=== PATIENT | male | born 1945 | race Caucasian/White ===

== ENCOUNTER 2021-03-28 11:44 | Inpatient (IN) | payer MEDICARE ==
[~2021-03-28] VITALS: Ht 172.7 cm; Wt 71.3 kg
[2021-03-28] MEDS ORDERED: MIRT-7 PO (13:43)
[2021-03-28] MEDS ORDERED: CYAN10002 IM (13:43)
[2021-03-28] MEDS ORDERED: LOSA50TA86 PO (13:43)
[2021-03-28] MEDS ORDERED: SENN8.6T11 PO (13:43)
[2021-03-28] MEDS ORDERED: ATOR40TA59 PO (13:43)
[2021-03-28] MEDS ORDERED: MULT-154 PO (13:43)
[2021-03-28] MEDS ORDERED: DIVA125C2 PO (13:43)
[2021-03-28] MEDS ORDERED: INSU100I17 SQ ×2 (13:43)
[2021-03-28] MEDS ORDERED: ACET325T21 PO (13:43)
[2021-03-28] MEDS ORDERED: INSU100I13 SQ (13:43)
[2021-03-28] MEDS ORDERED: TICA90TA PO (13:43)
[2021-03-28] MEDS ORDERED: ONDA4TAB7 PO (13:43)
[2021-03-28] MEDS ORDERED: HYDR-2867 PO (13:43)
[2021-03-28] MEDS ORDERED: FLUT16SP21 NS (13:43)
[2021-03-28] MEDS ORDERED: MEGE400O4 PO (13:43)
[2021-03-28] MEDS ORDERED: POLY17PO5 PO (13:43)
[2021-03-28] MEDS ORDERED: CHOL10004 PO (13:43)
[2021-03-28] MEDS ORDERED: ASPI-630 PO (13:43)
[2021-03-28] MEDS ORDERED: CARV6.25 PO (13:43)
--- NOTE | 2021-03-28 14:30 | NUR ---
Admission Note with Justification for Admission to [facility] Patient admitted to [facility] for protective oversight for emergency stabilization of acute psychiatric crisis. Pt admitted from: SNF Mode of arrival: POV Accompanied By: transit survey worker from [facility] Precipitating behaviors that initiated intake and admission: Patient was reported to be tearful, not eating, depressed r/t deteriorating physical condition post-stroke, expressing he wants to , threatening staff with cane Description of failure of out patient attempts at stabilization in previous setting list behavior and medication trials: Medication changes and redirection not effective Behaviors and assessment findings upon admission: Patient depressed, cooperative, occasionally tearful during assessment. He has left sided weakness r/t CVA, unable to use left arm; he has minimal use of left leg. Left hand has 2+ nonpitting edema, both hands have acrocyanosis. Unable to obtain SpO2 in fingers or ear. Both shins are shiny and hairless, feet are dry, pale with scaly skin. Patient oriented to self, city, in hospital, and day; states he does not know the date. Patient denies SI, states he is just tired. Plan: Admit for protective oversight for adjustment and stabilization of medications, behaviors and mood. Intense treatment regimen including groups, medication adjustments, therapy, consistent regimen for ADL's, self care, and sleep hygiene. Daily monitoring by Inpatient staff, Psychiatry, and Medical Physician.
[2021-03-28] MEDS ORDERED: METHYL SALICYLATE/MENTHOL TOPICAL OINTMENT 57GM TUBE. TP PRN (15:00)
[2021-03-28] MEDS ORDERED: MAGNESIUM HYDROXIDE 2,400 MG/30 ML ORAL.SUSP. PO PRN (15:00)
[2021-03-28] MEDS ORDERED: MAG HYDROX/AL HYDROX/SIMETH 30 ML ORAL.SUSP PO PRN (15:00)
[2021-03-28] MEDS ORDERED: ACETAMINOPHEN 325 MG TABLET PO PRN (15:00)
[2021-03-28 15:12] VITALS: BP 148/85
[2021-03-28] MEDS ORDERED: hydrALAZINE 10 MG TABLET PO PRN (16:00)
[2021-03-28] MEDS ORDERED: INSULIN LISPRO 300 UNITS/3 ML VIAL. SQ PRN (16:15)
[2021-03-28] MEDS ORDERED: ONDANSETRON ODT 4 MG TAB.RAPDIS PO PRN (16:15)
[2021-03-28] MEDS: CARVEDILOL 6.25 MG TABLET PO SCH (17:03)
[2021-03-28 19:13] LABS: BASO # 0.1 x10^3/uL (0.0-0.2); BASO % 1 % (0-3); EOS # 0.5 x10^3/uL (0.0-0.7); EOS % 5 % (0-3); HEMATOCRIT 29.8 % (39.0-53.0); HEMOGLOBIN 10.1 g/dL (13.0-17.5); LYMPH # 1.5 x10^3/uL (1.0-4.8); LYMPH % 17 % (24-48); MEAN CORPUSCULAR HEMOGLOBIN 30 pg (25-35); MEAN CORPUSCULAR HGB CONC 34 g/dL (31-37); MEAN CORPUSCULAR VOLUME 90 fL (79-100); MONO # 0.9 x10^3/uL (0.0-1.1); MONO % 10 % (0-9); NEUT # 6.2 x10^3uL (1.8-7.7); NEUT % 68 % (31-73); PLATELET COUNT 284 x10^3/uL (140-400); RED BLOOD COUNT 3.33 x10^6/uL (4.30-5.70); RED CELL DISTRIBUTION WIDTH 14.4 % (11.5-14.5); WHITE BLOOD COUNT 9.2 x10^3/uL (4.0-11.0)
[2021-03-28 19:24] LABS: ALBUMIN 2.8 g/dL (3.4-5.0); ALBUMIN/GLOBULIN RATIO 0.7 (1.0-1.7); ALK PHOS 98 U/L (46-116); ALT (SGPT) 18 U/L (16-63); ANION GAP 12 (6-14); AST (SGOT) 14 U/L (15-37); BLOOD UREA NITROGEN 36 mg/dL (8-26); BUN/CREATININE RATIO 18 (6-20); CALCIUM 8.7 mg/dL (8.5-10.1); CARBON DIOXIDE 23 mmol/L (21-32); CHLORIDE 104 mmol/L (98-107); GFR 32.6; GLUCOSE 155 mg/dL (70-99); MAGNESIUM 1.9 mg/dL (1.8-2.4); POTASSIUM 3.3 mmol/L (3.5-5.1); SODIUM 139 mmol/L (136-145); TOTAL BILIRUBIN 0.3 mg/dL (0.2-1.0); TOTAL PROTEIN 6.7 g/dL (6.4-8.2)
[2021-03-28 19:25] LABS: VAL ACID 24 mcg/mL (50-100)
[2021-03-28] MEDS: TICAGRELOR 90 MG TABLET. PO SCH (20:08)
[2021-03-28] MEDS: ATORVASTATIN CALCIUM 20 MG TABLET PO SCH (20:18)
[2021-03-28] MEDS: MIRTAZAPINE 15 MG TABLET PO SCH (20:18)
[2021-03-28] MEDS: DIVALPROEX 125 MG CAP.SPRINK PO SCH (20:18)
[2021-03-28] MEDS: ACETAMINOPHEN 325 MG TABLET PO SCH (20:19)
--- NOTE | 2021-03-28 21:08 | EKG ---
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
[2021-03-28 21:30] LABS: CLARITY,URINE CLEAR; COLOR,URINE YELLOW
[2021-03-28 21:31] LABS: BACTERIA,URINE 0 /HPF (0-FEW); BILIRUBIN,URINE NEG (NEG); GLUCOSE,URINE NEG (NEG); NITRITE,URINE NEG (NEG); RBC,URINE 0 /HPF (0-2); SQUAMOUS EPITHELIAL CELL,UR OCC /LPF; UROBILINOGEN,URINE 0.2 mg/dL (0.2 mg/dL); WBC,URINE 0 /HPF (0-4)
--- NOTE | 2021-03-28 21:52 | PDOC ---
Exam Note: Jareth Note: Please also refer to the separate dictated note~for this date of service dictated separately.~Patient seen individually. Discussed the patient with Nursing staff reviewed the chart.~Reviewed interim history and current functioning. Reviewed vital signs,~Labs/ Radiology~and current medications noted below. Continue current treatment with the changes noted in the dictated addendum note Assessment: Vital Signs/I&O: Vital Signs Date Time Temp Pulse Resp B/P (MAP) Pulse Ox O2 Delivery O2 Flow Rate FiO2 03/28/21 17:03 98 148/85 03/28/21 15:12 97.4 18 99 Labs: Laboratory Tests Test 03/28/21 16:48 03/28/21 18:58 03/28/21 19:41 03/28/21 21:00 Glucose (Fingerstick) 86 mg/dL (70-99) 130 mg/dL (70-99) H White Blood Count 9.2 x10^3/uL (4.0-11.0) Red Blood Count 3.33 x10^6/uL (4.30-5.70) L Hemoglobin 10.1 g/dL (13.0-17.5) L Hematocrit 29.8 % (39.0-53.0) L Mean Corpuscular Volume 90 fL (79-100) Mean Corpuscular Hemoglobin 30 pg (25-35) Mean Corpuscular Hemoglobin Concent 34 g/dL (31-37) Red Cell Distribution Width 14.4 % (11.5-14.5) Platelet Count 284 x10^3/uL (140-400) Neutrophils (%) (Auto) 68 % (31-73) Lymphocytes (%) (Auto) 17 % (24-48) L Monocytes (%) (Auto) 10 % (0-9) H Eosinophils (%) (Auto) 5 % (0-3) H Basophils (%) (Auto) 1 % (0-3) Neutrophils # (Auto) 6.2 x10^3uL (1.8-7.7) Lymphocytes # (Auto) 1.5 x10^3/uL (1.0-4.8) Monocytes # (Auto) 0.9 x10^3/uL (0.0-1.1) Eosinophils # (Auto) 0.5 x10^3/uL (0.0-0.7) Basophils # (Auto) 0.1 x10^3/uL (0.0-0.2) D-Dimer (Tianna) 3.76 mg/L (0.00-0.50) H Sodium Level 139 mmol/L (136-145) Potassium Level 3.3 mmol/L (3.5-5.1) L Chloride Level 104 mmol/L (98-107) Carbon Dioxide Level 23 mmol/L (21-32) Anion Gap 12 (6-14) Blood Urea Nitrogen 36 mg/dL (8-26) H Creatinine 2.0 mg/dL (0.7-1.3) H Estimated GFR (Cockcroft-Gault) 32.6 BUN/Creatinine Ratio 18 (6-20) Glucose Level 155 mg/dL (70-99) H Calcium Level 8.7 mg/dL (8.5-10.1) Magnesium Level 1.9 mg/dL (1.8-2.4) Total Bilirubin 0.3 mg/dL (0.2-1.0) Aspartate Amino Transferase (AST) 14 U/L (15-37) L Alanine Aminotransferase (ALT) 18 U/L (16-63) Alkaline Phosphatase 98 U/L (46-116) Total Protein 6.7 g/dL (6.4-8.2) Albumin 2.8 g/dL (3.4-5.0) L Albumin/Globulin Ratio 0.7 (1.0-1.7) L Valproic Acid Level 24 mcg/mL (50-100) L Valproic Acid Last Dose Date 03/28/21 Valproic Acid Last Dose Time 0800 Urine Collection Type Clean catch Urine Color Yellow Urine Clarity Clear Urine pH 5.0 Urine Specific [place] 1.020 Urine Protein >100 mg/dl (NEG-TRACE) Urine Glucose (UA) Neg mg/dL (NEG) Urine Ketones (Stick) Neg mg/dL (NEG) Urine Blood Neg (NEG) Urine Nitrite Neg (NEG) Urine Bilirubin Neg (NEG) Urine Urobilinogen Dipstick 0.2 mg/dL (0.2 mg/dL) Urine Leukocyte Esterase Neg (NEG) Urine RBC 0 /HPF (0-2) Urine WBC 0 /HPF (0-4) Urine Squamous Epithelial Cells Occ /LPF Urine Bacteria 0 /HPF (0-FEW) Current Medications: Meds: Current Medications Medications (Trade) Dose Ordered Sig/Komal Route PRN Reason Start Time Stop Time Status Last Admin Dose Admin Acetaminophen (Tylenol) 650 mg TID PO 03/28/21 21:00 03/28/21 20:19 Carvedilol (Coreg) 6.25 mg BIDWMEALS PO 03/28/21 17:00 03/28/21 17:03 Divalproex Sodium (Depakote Sprinkles) 250 mg BID PO 03/28/21 21:00 03/28/21 20:18 Mirtazapine (Remeron) 15 mg QHS PO 03/28/21 21:00 03/28/21 20:18 Ticagrelor (Brilinta) 90 mg BID PO 03/28/21 21:00 03/28/21 20:08 Atorvastatin Calcium (Lipitor) 40 mg QHS PO 03/28/21 21:00 03/28/21 20:18 I have reviewed the current psychotropics carefully including drug interactions. Risk benefit ratio favors no change other than as noted in my dictated progress note. FREDDY SHEARER MD Mar 28, 2021 21:52
--- NOTE | 2021-03-28 23:15 | NUR ---
Patient is located in his room on assumption of care, awake in bed. He is flat, depressed, withdrawn. Answers assessment questions with one-word answers. Oriented to self, , day of the week, and that he is in a hospital, but can't state which one. He transfers with some assistance, due to left sided weakness. He was compliant with assessments and took his medications whole, one at a time, on a spoon. This nurse asked him if he would prefer to take them crushed, and he agreed that he would. His preference is chocolate pudding. Cooperative with HS cares. Patient denies any SI thoughts at this time. He denies any pain or discomfort. Appears to be sleeping comfortably at present time. Will continue to monitor.
[2021-03-29 06:21] VITALS: BP 156/78
[2021-03-29 06:23] VITALS: BP 156/78
[2021-03-29] MEDS ORDERED: INSULIN LISPRO 300 UNITS/3 ML VIAL. SQ SCH (07:30)
[2021-03-29] MEDS: INSULIN GLARGINE SYRINGE. SQ SCH (08:00)
[2021-03-29] MEDS: CHOLECALCIFEROL (VITAMIN D3) 1,000 UNIT TABLET PO SCH (08:59)
[2021-03-29] MEDS: MEGESTROL 400 MG/10 ML ORAL.SUSP. PO SCH ×2 (08:59→12:00)
[2021-03-29] MEDS: ACETAMINOPHEN 325 MG TABLET PO SCH ×2 (08:59→14:00)
[2021-03-29] MEDS: ASPIRIN CHEWABLE 81 MG TABLET. PO SCH (09:00)
[2021-03-29] MEDS: CARVEDILOL 6.25 MG TABLET PO SCH ×2 (09:00→17:00)
[2021-03-29] MEDS: MULTIVITAMIN with MINERAL TABLET. PO SCH (09:00)
[2021-03-29] MEDS: TICAGRELOR 90 MG TABLET. PO SCH ×2 (09:00→19:57)
[2021-03-29] MEDS: DIVALPROEX 125 MG CAP.SPRINK PO SCH ×2 (09:00→19:59)
[2021-03-29] MEDS ORDERED: FLUTICASONE 50MCG/NASAL SPRAY 16GM BOTTLE. NS SCH (09:00)
[2021-03-29] MEDS: LOSARTAN 50 MG TABLET. PO SCH (09:00)
--- NOTE | 2021-03-29 11:45 | NUR ---
WINDOW GLASS CUTTER OFF reports patient states he feels like he is going to pass out. Patient denies nausea or pain, states he feels light headed. BP=89/61, HR=96, SpO2=98% on room air. Instructed patient he needs to drink fluids, patient refusing to drink thickened liquids. Informed patient he is on thickened liquids until speech can evaluate him to prevent aspiration pneumonia, patient continues to refuse thickened liquid. Will continue to monitor and report to MD during rounds
[2021-03-29] MEDS: INSULIN LISPRO 300 UNITS/3 ML VIAL. SQ SCH ×2 (12:31→17:00)
--- NOTE | 2021-03-29 12:32 | NUR ---
Patient refused megestrol. He did not eat more than 25% of his meal, insulin was held. Will continue to monitor.
[2021-03-29 13:09] LABS: THYROID STIM HORMONE (TSH) 0.634 uIU/mL (0.358-3.740)
[2021-03-29] MEDS ORDERED: FLUTICASONE 50MCG/NASAL SPRAY 16GM BOTTLE. NS PRN (16:00)
[2021-03-29] MEDS ORDERED: ACETAMINOPHEN 325 MG TABLET PO PRN (16:00)
[2021-03-29 16:11] VITALS: BP 137/80
--- NOTE | 2021-03-29 17:56 | NUR ---
Per speech therapy, patient should be on pureed diet with honey thick liquid. Discussed with Lorna Vasquez, patient's daughter and POA. Due to patient's behavior's and preferences, she stated that patient is to have a mechanical soft diet and thin liquids, this is the diet he was on at his facility. She stated that the family is aware of the dangers of aspiration. She stated that patient has lost 14lbs in the last month and 25 pounds since his CVA on 03 January 2021. Patient had a swallow study about three weeks ago at [facility], consent obtained to request medical records.
[2021-03-29] MEDS: MIRTAZAPINE 15 MG TABLET PO SCH (19:58)
[2021-03-29] MEDS: ATORVASTATIN CALCIUM 20 MG TABLET PO SCH (19:58)
--- NOTE | 2021-03-29 23:45 | NUR ---
Patient is located in his room on assumption of care, awake in bed. He is withdrawn, depressed, irritable. When this nurse entered his room for assessment, he stated "What the hell do you want? I've been to 4 places since my stroke, and this is place is a shit-hole just like all the others." He was compliant with assessments and medications crushed in chocolate pudding. Cooperative with HS cares. Patient denies any SI thoughts at this time. He denies any pain or discomfort. Appears to be sleeping comfortably at present time. Will continue to monitor.
--- NOTE | 2021-03-30 00:11 | CONS ---
DATE OF CONSULTATION: 03/29/2021 REASON FOR CONSULTATION: Medical management. HISTORY OF PRESENT ILLNESS: The patient is a 76-year-old male patient, a resident at the [facility] who was [facility] on account of being tearful, anorexic and depressed secondary to deteriorating physical condition post-stroke. He was expressing his desire to , threatening staff with cane, all this in a background of major depressive disorder. PAST MEDICAL HISTORY: Significant for right middle cerebral artery territory infarct with left-sided hemiplegia. He also has oropharyngeal dysphagia, dysarthria, neurogenic bowel, left-sided neglect syndrome. He has type 2 diabetes mellitus, chronic kidney disease, neurogenic bladder, anemia, hypertension, aortocoronary bypass graft, has muscle weakness, attention and concentration deficit with adjustment disorder with mixed anxiety and depressed mood, osteoarthritis. The patient also requires assistance for all activities of daily living. PAST SURGICAL HISTORY: Significant for coronary artery bypass graft surgery. ALLERGIES: He has no known drug allergies. MEDICATIONS: He is currently on the following medication: He is on Brilinta 90 mg twice a day, atorvastatin 40 mg at bedtime, hydralazine 10 mg every 8 hours, carvedilol 6.25 mg twice a day with meals, losartan potassium 50 mg daily, aspirin 81 mg once a day and acetaminophen 650 mg t.i.d., divalproex sodium 250 mg twice a day, mirtazapine 15 mg at bedtime, fluticasone propionate for Flonase 2 sprays to each nostril once a day, polyethylene glycol 17 grams every 12 hours as needed, senna 1 tablet twice a day, ondansetron 4 mg every 12 hours as needed. He is on NovoLog FlexPen 10 units with supper, NovoLog 13 units before breakfast and lunch and 35 units of Lantus insulin before breakfast. He is on megestrol acetate 400 mg in 10 mL oral suspension, 400 mg p.o. b.i.d. with breakfast and lunch. He is on vitamin B complex 1000 mcg intramuscular once a month, cholecalciferol (vitamin D) 50 mcg once a day. He is also on multivitamin 1 tablet once a day. REVIEW OF SYSTEMS: As per history of present illness. FAMILY HISTORY: Noncontributory. SOCIAL HISTORY: He is , has 2 children. He quit smoking about 30 years ago. Drinks alcohol occasionally. Does not use any drugs. 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 PHYSICAL EXAMINATION: GENERAL: When I saw him this afternoon, he was resting slightly propped up in bed, in no apparent respiratory distress. He was somewhat pale, but no jaundice, cyanosis or thyromegaly. No jugular venous distention. No lower limb edema. VITAL SIGNS: His heart rate was 72, blood pressure is 156/78, temperature 97.8, respiratory rate was 16 and oxygen saturation was 97% on room air. HEAD, EYES, EARS, NOSE, AND THROAT: Normocephalic, atraumatic. NECK: Supple. HEART: Showed normal first and second heart sounds, no gallop, rub or murmur. CHEST: Clear to auscultation, no crepitation or rhonchi. ABDOMEN: Scaphoid, soft, nontender. NEUROLOGIC: He is awake, alert, responding appropriately. All his cranial nerves intact. He has right middle cerebral artery territory infarct with left-sided hemiplegia. LABORATORY DATA: His D-dimer was high at 3.76. His white cell count was 9200, hemoglobin 10, hematocrit 30, MCV 90 and platelet count 284,000 with normal manual differential. His chemistry showed a serum sodium of 139, potassium 3.3, chloride 104, bicarbonate 23, anion gap of 12, BUN 36, creatinine 2, estimated GFR was 32 mL per minute. His glucose 155, calcium was 8.7. Total protein was 1.9. His total bilirubin, AST, ALT, alkaline phosphatase were normal. Total protein 6.7, albumin 2.8. His iron is 36, iron binding capacity was 226 and total iron saturation was 16%. His serum triglycerides was 126. Total cholesterol was 81, LDL was 33, VLDL was 25, HDL cholesterol was 23 and the ratio was 3 and TSH was 0.634. His urinalysis showed the urine was clear yellow with a pH of 5, specific gravity 1.020. His toxic screen showed the valproic acid only 24 and his coronavirus by PCR was negative. ASSESSMENT AND PLAN: In summary, this is a 76-year-old male patient, resident at [facility] who was admitted on account of being tearful, not eating, depressed due to deteriorating physical condition post stroke, expressing he wants to and threatening staff with cane, all this in a background of major depressive disorder. Medically, he all in all seemed to be stable. All his vital signs were within acceptable range. His lab work also showed that he has chronic normochromic normocytic anemia, has also chronic kidney disease, mild hypokalemia. However, the patient all in all seems to be stable. I will review all the lab work that is still pending at the time of this dictation and decide on further management accordingly. Thank you, Dr. Vora, for allowing me to participate in the care of this patient. ANDREW/JHOANA DR: Magaly TID: [id number]
[2021-03-30 05:38] LABS: THYROXINE 7.6 ug/dL (4.5-12.0)
[2021-03-30 06:22] VITALS: BP 168/80
[2021-03-30] MEDS: INSULIN LISPRO 300 UNITS/3 ML VIAL. SQ SCH ×3 (08:00→17:38)
[2021-03-30] MEDS: MEGESTROL 400 MG/10 ML ORAL.SUSP. PO SCH ×2 (08:00→12:00)
[2021-03-30] MEDS: INSULIN GLARGINE SYRINGE. SQ SCH (08:00)
[2021-03-30] MEDS: DIVALPROEX 125 MG CAP.SPRINK PO SCH ×2 (08:58→20:35)
[2021-03-30] MEDS: LOSARTAN 50 MG TABLET. PO SCH (08:58)
[2021-03-30] MEDS: CARVEDILOL 6.25 MG TABLET PO SCH ×2 (08:58→17:32)
[2021-03-30] MEDS: ASPIRIN CHEWABLE 81 MG TABLET. PO SCH (08:58)
[2021-03-30] MEDS: TICAGRELOR 90 MG TABLET. PO SCH ×2 (08:58→20:35)
[2021-03-30] MEDS ORDERED: buPROPion XL 150 MG TAB.ER.24H PO SCH (09:00)
[2021-03-30] MEDS: CHOLECALCIFEROL (VITAMIN D3) 1,000 UNIT TABLET PO SCH (09:00)
[2021-03-30] MEDS: MULTIVITAMIN with MINERAL TABLET. PO SCH (09:00)
--- NOTE | 2021-03-30 10:31 | PDOC ---
Exam Note: Jaerth Note: Late entry for 03/29/21. Please also refer to the separate dictated note~for this date of service dictated separately.~Patient seen individually. Discussed the patient with Nursing staff reviewed the chart.~Reviewed interim history and current functioning. Reviewed vital signs,~Labs/ Radiology~and current medicat ions noted below. Continue current treatment with the changes noted in the dictated addendum note Assessment: Vital Signs/I&O: Vital Signs Date Time Temp Pulse Resp B/P (MAP) Pulse Ox O2 Delivery O2 Flow Rate FiO2 03/30/21 08:58 82 168/80 03/30/21 06:22 97.5 16 95 Room Air I & O 03/29/21 03/29/21 03/30/21 15:00 23:00 07:00 Intake Total 480 ml 620 ml Balance 480 ml 620 ml Labs: Laboratory Tests Test 03/29/21 11:43 03/29/21 16:18 03/29/21 19:10 03/30/21 07:28 Glucose (Fingerstick) 185 mg/dL (70-99) H 197 mg/dL (70-99) H 245 mg/dL (70-99) H 184 mg/dL (70-99) H Current Medications: Meds: Laboratory Tests Test 03/29/21 11:43 03/29/21 16:18 03/29/21 19:10 03/30/21 07:28 Glucose (Fingerstick) 185 mg/dL 197 mg/dL 245 mg/dL 184 mg/dL Current Medications Medications (Trade) Dose Ordered Sig/Komal Route PRN Reason Start Time Stop Time Status Last Admin Dose Admin Acetaminophen (Tylenol) 650 mg PRN Q6HRS PRN PO MILD PAIN / TEMP > 100.3'F 03/28/21 15:00 03/29/21 16:01 DC Multi-Ingredient Ointment (Analgesic [place]) 1 peggy PRN QID PRN TP MUSCLE PAIN 03/28/21 15:00 Al Hydroxide/Mg Hydroxide (Mylanta Plus Xs) 15 ml PRN AFTMEALHC PRN PO DYSPEPSIA 03/28/21 15:00 Magnesium Hydroxide (Milk Of Magnesia) 2,400 mg PRN QHS PRN PO CONSTIPATION 03/28/21 15:00 Acetaminophen (Tylenol) 650 mg TID PO 03/28/21 21:00 03/29/21 16:01 DC 03/29/21 08:59 Aspirin (Aspirin Chewable) 81 mg DAILY PO 03/29/21 09:00 03/30/21 08:58 Carvedilol (Coreg) 6.25 mg BIDWMEALS PO 03/28/21 17:00 03/30/21 08:58 Vitamin D (Vitamin D3) 2,000 unit DAILY PO 03/29/21 09:00 03/29/21 08:59 Cyanocobalamin (Vitamin B-12) 1,000 mcg QMONTH IM 04/09/21 09:00 Divalproex Sodium (Depakote Sprinkles) 250 mg BID PO 03/28/21 21:00 03/30/21 08:58 Fluticasone Propionate (Flonase) 2 spray DAILY NS 03/29/21 09:00 03/29/21 16:01 DC 03/29/21 08:58 Hydralazine HCl (Apresoline) 10 mg PRN Q8HRS PRN PO HYPERTENSION 03/28/21 16:00 Losartan Potassium (Cozaar) 50 mg DAILY PO 03/29/21 09:00 03/30/21 08:58 Megestrol Acetate (Megace Oral Susp) 400 mg BIDWBKFT/URIEL PO 03/29/21 08:00 03/29/21 08:59 Mirtazapine (Remeron) 15 mg QHS PO 03/28/21 21:00 03/29/21 19:58 Polyethylene Glycol (miraLAX) 17 gm PRN Q12HR PRN PO CONSTIPATION 03/28/21 16:00 Sennosides (Senna) 8.6 mg PRN Q12HR PRN PO CONSTIPATION 03/28/21 16:00 Ticagrelor (Brilinta) 90 mg BID PO 03/28/21 21:00 03/30/21 08:58 Atorvastatin Calcium (Lipitor) 40 mg QHS PO 03/28/21 21:00 03/29/21 19:58 Insulin Human Lispro (HumaLOG) 10 units DAILYWSUP PRN SQ IF PT EATS >/= 25% OF NGOZI MEAL 03/28/21 16:15 03/29/21 11:54 DC Insulin Human Lispro (HumaLOG) 13 units BIDACBL SQ 03/29/21 07:30 03/29/21 11:56 DC Insulin Glargine (Lantus Syringe) 35 unit DAILYWBKFT SQ 03/29/21 08:00 Multivitamins/ Calcium (Thera-M Plus) 1 tab DAILY PO 03/29/21 09:00 03/29/21 09:00 Ondansetron HCl (Zofran Odt) 4 mg PRN Q12HR PRN PO NAUSEA/VOMITING 03/28/21 16:15 Insulin Human Lispro (HumaLOG) 10 units DAILYWSUP SQ 03/29/21 17:00 Insulin Human Lispro (HumaLOG) 13 units BIDWBKFT/URIEL SQ 03/29/21 12:00 Acetaminophen (Tylenol) 650 mg PRN TID PRN PO MILD PAIN / TEMP > 100.3'F 03/29/21 16:00 Fluticasone Propionate (Flonase) 2 spray PRN DAILY PRN NS ALLERGIES 03/29/21 16:00 Bupropion HCl (Wellbutrin Xl) 150 mg DAILY PO 03/30/21 09:00 04/01/21 11:00 Bupropion HCl (Wellbutrin Xl) 300 mg DAILY PO 04/02/21 09:00 I have reviewed the current psychotropics carefully including drug interactions. Risk benefit ratio favors no change other than as noted in my dictated progress note. FREDDY SHEARER MD Mar 30, 2021 10:31
--- NOTE | 2021-03-30 13:48 | NUR ---
Nursing note: Patient in bed room for morning medication and assessment. Partial compliance with taking medications floated in pudding. He is A/O to self, place and situation. Patient is rude, demanding, confused, and isolative. He refused breakfast, insulin held. He ate less than 25% of lunch, insulin held. Patient denies having any pain/discomfort at this time. He propels self through unit and bedroom in w/c. He is currently sitting in his w/c in his room. Will continue to monitor. Addendum: 03/30/21 at 1813 by CRAIG MONTES RN RN Patient is not on a sliding scale for insulin, this nurse gave 4 units after he ate 75% of his dinner. He is added to the Dr list for consult.
[2021-03-30 16:18] VITALS: BP 117/62
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
[2021-03-30] MEDS: MIRTAZAPINE 15 MG TABLET PO SCH (20:35)
[2021-03-30] MEDS: ATORVASTATIN CALCIUM 20 MG TABLET PO SCH (20:35)
--- NOTE | 2021-03-30 22:00 | NUR ---
Patient laying in bed when nurse entered room with HS medications. He stated that he must have them crushed in pudding and then followed by water. Patient compliant with meds. Patient stated that he "had no blankets". Patient was actually laying on top of the covers. Provided patient with blankets as he stated he did not want to try to get under the covers as his Left side is weak. Patient stated that he is angry that he cannot do the things he could do before his stroke, stated he had a stroke December 2020. Patient asked if he could have his cell phone back and then stated that he is claustrophobic and asked how much longer he had to stay here. It was reported that patient did not eat breakfast or lunch today. Dr Vora changed patients wellbutrin XL 150mg to Wellbutrin 75mg at BID @ 0900/1200, as that can be crushed.
[2021-03-31 01:08] LABS: HEMOGLOBIN A1C 7.5 % (4.8-5.6)
[2021-03-31 06:00] VITALS: BP 134/88
[2021-03-31] MEDS: INSULIN GLARGINE SYRINGE. SQ SCH (08:00)
[2021-03-31] MEDS: DIVALPROEX 125 MG CAP.SPRINK PO SCH ×2 (08:01→20:28)
[2021-03-31] MEDS: ASPIRIN CHEWABLE 81 MG TABLET. PO SCH (08:02)
[2021-03-31] MEDS: TICAGRELOR 90 MG TABLET. PO SCH ×2 (08:02→20:28)
[2021-03-31] MEDS: LOSARTAN 50 MG TABLET. PO SCH (08:02)
[2021-03-31] MEDS: CARVEDILOL 6.25 MG TABLET PO SCH ×2 (08:02→17:24)
[2021-03-31] MEDS: MULTIVITAMIN with MINERAL TABLET. PO SCH (08:02)
[2021-03-31] MEDS: CHOLECALCIFEROL (VITAMIN D3) 1,000 UNIT TABLET PO SCH (08:02)
[2021-03-31] MEDS: MEGESTROL 400 MG/10 ML ORAL.SUSP. PO SCH ×2 (08:03→12:20)
[2021-03-31] MEDS: buPROPion 75 MG TABLET PO SCH ×2 (08:03→12:20)
[2021-03-31] MEDS: INSULIN LISPRO 300 UNITS/3 ML VIAL. SQ SCH ×3 (08:55→17:43)
--- NOTE | 2021-03-31 08:55 | PDOC ---
Exam Note: Jareth Note: This note is a late entry for 03/29/2021 covers elements not covered in my initial note. Subjective: The patient was seen individually in the evening of 03/29/2021 with Javier JIANG, discussed and reviewed the chart. The patient slept 9 hours previous night. He has been extremely withdrawn, refused his meds during the day today and was quite irritable. He walked 40 feet with physical therapy staff in a wheelchair propelling himself. Speech evaluation recommended. Diet pureed with honey thickened but the DPOA has consented to thin liquids and pureed diet as the patient requests and he is accepting of the risks per nursing staff. We will defer to Dr. Shea. I met with him in his room. We reviewed his history at length. 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 He takes his medications crushed. He is quite depressed, anxious, irritable, and dismissive as I met with him. Review of Systems: No CV, , pulmonary, eye, ENT system symptoms on review. Impaired ambulation. Reliability varies. Mental Status Exam: The patient is oriented to himself and situation. Speech has some latency, coherent. Often response is monosyllabic. Abstraction fair. Computation impaired. Language function intact. Mood and affect depressed but no active suicidal ideation, somewhat distractible. Laboratory Data: Reviewed. Impression: Major depressive disorder, severe with psychotic features. Anxiety disorder unspecified. Rest unchanged from before. Plan: We will start Wellbutrin XL 150 mg a day for 3 days and 300 mg a day t hereafter. In a day or so we will adjust the Depakote upward to reach therapeutic level since the current level is 24 subtherapeutic on 250 mg b.i.d. Maintain Megace, Remeron. Rest unchanged for now. Assessment: Vital Signs/I&O: Vital Signs Date Time Temp Pulse Resp B/P (MAP) Pulse Ox O2 Delivery O2 Flow Rate FiO2 03/31/21 08:02 80 134/88 03/31/21 06:00 97.9 17 92 03/30/21 06:22 Room Air I & O 03/30/21 03/30/21 03/31/21 15:00 23:00 07:00 Intake Total 300 ml 240 ml Balance 300 ml 240 ml Labs: Laboratory Tests Test 03/30/21 11:47 03/30/21 17:10 03/30/21 19:31 03/31/21 07:50 Glucose (Fingerstick) 169 mg/dL (70-99) H 217 mg/dL (70-99) H 224 mg/dL (70-99) H 190 mg/dL (70-99) H Current Medications: Meds: Laboratory Tests Test 03/30/21 11:47 03/30/21 17:10 03/30/21 19:31 03/31/21 07:50 Glucose (Fingerstick) 169 mg/dL 217 mg/dL 224 mg/dL 190 mg/dL Current Medications Medications (Trade) Dose Ordered Sig/Komal Route PRN Reason Start Time Stop Time Status Last Admin Dose Admin Acetaminophen (Tylenol) 650 mg PRN Q6HRS PRN PO MILD PAIN / TEMP > 100.3'F 03/28/21 15:00 03/29/21 16:01 DC Multi-Ingredient Ointment (Analgesic [place]) 1 peggy PRN QID PRN TP MUSCLE PAIN 03/28/21 15:00 Al Hydroxide/Mg Hydroxide (Mylanta Plus Xs) 15 ml PRN AFTMEALHC PRN PO DYSPEPSIA 03/28/21 15:00 Magnesium Hydroxide (Milk Of Magnesia) 2,400 mg PRN QHS PRN PO CONSTIPATION 03/28/21 15:00 Acetaminophen (Tylenol) 650 mg TID PO 03/28/21 21:00 03/29/21 16:01 DC 03/29/21 08:59 Aspirin (Aspirin Chewable) 81 mg DAILY PO 03/29/21 09:00 03/31/21 08:02 Carvedilol (Coreg) 6.25 mg BIDWMEALS PO 03/28/21 17:00 03/31/21 08:02 Vitamin D (Vitamin D3) 2,000 unit DAILY PO 03/29/21 09:00 03/31/21 08:02 Cyanocobalamin (Vitamin B-12) 1,000 mcg QMONTH IM 04/09/21 09:00 Divalproex Sodium (Depakote Sprinkles) 250 mg BID PO 03/28/21 21:00 03/31/21 08:01 Fluticasone Propionate (Flonase) 2 spray DAILY NS 03/29/21 09:00 03/29/21 16:01 DC 03/29/21 08:58 Hydralazine HCl (Apresoline) 10 mg PRN Q8HRS PRN PO HYPERTENSION 03/28/21 16:00 Losartan Potassium (Cozaar) 50 mg DAILY PO 03/29/21 09:00 03/31/21 08:02 Megestrol Acetate (Megace Oral Susp) 400 mg BIDWBKFT/URIEL PO 03/29/21 08:00 03/31/21 08:03 Mirtazapine (Remeron) 15 mg QHS PO 03/28/21 21:00 03/30/21 20:35 Polyethylene Glycol (miraLAX) 17 gm PRN Q12HR PRN PO CONSTIPATION 03/28/21 16:00 Sennosides (Senna) 8.6 mg PRN Q12HR PRN PO CONSTIPATION 03/28/21 16:00 Ticagrelor (Brilinta) 90 mg BID PO 03/28/21 21:00 03/31/21 08:02 Atorvastatin Calcium (Lipitor) 40 mg QHS PO 03/28/21 21:00 03/30/21 20:35 Insulin Human Lispro (HumaLOG) 10 units DAILYWSUP PRN SQ IF PT EATS >/= 25% OF NGOZI MEAL 03/28/21 16:15 03/29/21 11:54 DC Insulin Human Lispro (HumaLOG) 13 units BIDACBL SQ 03/29/21 07:30 03/29/21 11:56 DC Insulin Glargine (Lantus Syringe) 35 unit DAILYWBKFT SQ 03/29/21 08:00 Multivitamins/ Calcium (Thera-M Plus) 1 tab DAILY PO 03/29/21 09:00 03/31/21 08:02 Ondansetron HCl (Zofran Odt) 4 mg PRN Q12HR PRN PO NAUSEA/VOMITING 03/28/21 16:15 Insulin Human Lispro (HumaLOG) 10 units DAILYWSUP SQ 03/29/21 17:00 03/30/21 17:38 Insulin Human Lispro (HumaLOG) 13 units BIDWBKFT/URIEL SQ 03/29/21 12:00 Acetaminophen (Tylenol) 650 mg PRN TID PRN PO MILD PAIN / TEMP > 100.3'F 03/29/21 16:00 Fluticasone Propionate (Flonase) 2 spray PRN DAILY PRN NS ALLERGIES 03/29/21 16:00 Bupropion HCl (Wellbutrin Xl) 150 mg DAILY PO 03/30/21 09:00 03/30/21 20:20 DC Bupropion HCl (Wellbutrin Xl) 300 mg DAILY PO 04/02/21 09:00 03/30/21 20:20 DC Bupropion HCl (Wellbutrin) 75 mg 0900,1200 PO 03/31/21 09:00 03/31/21 08:03 Current Medications Medications (Trade) Dose Ordered Sig/Koaml Route PRN Reason Start Time Stop Time Status Last Admin Dose Admin Bupropion HCl (Wellbutrin) 75 mg 0900,1200 PO 03/31/21 09:00 03/31/21 08:03 I have reviewed the current psychotropics carefully including drug interactions. Risk benefit ratio favors no change other than as noted in my dictated progress note. Diagnosis: Problems: (1) Major depressive disorder, recurrent, severe with psychotic features (2) Mild cognitive impairment (3) Anxiety disorder, unspecified FREDDY SHEARER MD Mar 31, 2021 08:55
--- NOTE | 2021-03-31 09:14 | PDOC ---
Exam Note: Jareth Note: Late entry for 03/30/2021. Please also refer to the separate dictated note~for this date of service dictated separately. Discussed the patient with Nursing staff reviewed the chart.~Reviewed interim history and current functioning. Reviewed vital signs,~Labs/ Radiology~and current medications noted below. Continue current treatment with the changes noted in the dictated addendum note Assessment: Vital Signs/I&O: Vital Signs Date Time Temp Pulse Resp B/P (MAP) Pulse Ox O2 Delivery O2 Flow Rate FiO2 03/31/21 08:02 80 134/88 03/31/21 06:00 97.9 17 92 03/30/21 06:22 Room Air I & O 03/30/21 03/30/21 03/31/21 14:59 22:59 06:59 Intake Total 300 ml 240 ml Balance 300 ml 240 ml Labs: Laboratory Tests Test 03/30/21 11:47 03/30/21 17:10 03/30/21 19:31 03/31/21 07:50 Glucose (Fingerstick) 169 mg/dL (70-99) H 217 mg/dL (70-99) H 224 mg/dL (70-99) H 190 mg/dL (70-99) H Current Medications: Meds: Laboratory Tests Test 03/30/21 11:47 03/30/21 17:10 03/30/21 19:31 03/31/21 07:50 Glucose (Fingerstick) 169 mg/dL 217 mg/dL 224 mg/dL 190 mg/dL Current Medications Medications (Trade) Dose Ordered Sig/Komal Route PRN Reason Start Time Stop Time Status Last Admin Dose Admin Acetaminophen (Tylenol) 650 mg PRN Q6HRS PRN PO MILD PAIN / TEMP > 100.3'F 03/28/21 15:00 03/29/21 16:01 DC Multi-Ingredient Ointment (Analgesic [place]) 1 peggy PRN QID PRN TP MUSCLE PAIN 03/28/21 15:00 Al Hydroxide/Mg Hydroxide (Mylanta Plus Xs) 15 ml PRN AFTMEALHC PRN PO DYSPEPSIA 03/28/21 15:00 Magnesium Hydroxide (Milk Of Magnesia) 2,400 mg PRN QHS PRN PO CONSTIPATION 03/28/21 15:00 Acetaminophen (Tylenol) 650 mg TID PO 03/28/21 21:00 10/30/21 16:01 DC 03/29/21 08:59 Aspirin (Aspirin Chewable) 81 mg DAILY PO 03/29/21 09:00 03/31/21 08:02 Carvedilol (Coreg) 6.25 mg BIDWMEALS PO 03/28/21 17:00 03/31/21 08:02 Vitamin D (Vitamin D3) 2,000 unit DAILY PO 03/29/21 09:00 03/31/21 08:02 Cyanocobalamin (Vitamin B-12) 1,000 mcg QMONTH IM 04/09/21 09:00 Divalproex Sodium (Depakote Sprinkles) 250 mg BID PO 03/28/21 21:00 03/31/21 08:01 Fluticasone Propionate (Flonase) 2 spray DAILY NS 03/29/21 09:00 03/29/21 16:01 DC 03/29/21 08:58 Hydralazine HCl (Apresoline) 10 mg PRN Q8HRS PRN PO HYPERTENSION 03/28/21 16:00 Losartan Potassium (Cozaar) 50 mg DAILY PO 03/29/21 09:00 03/31/21 08:02 Megestrol Acetate (Megace Oral Susp) 400 mg BIDWBKFT/URIEL PO 03/29/21 08:00 03/31/21 08:03 Mirtazapine (Remeron) 15 mg QHS PO 03/28/21 21:00 03/30/21 20:35 Polyethylene Glycol (miraLAX) 17 gm PRN Q12HR PRN PO CONSTIPATION 03/28/21 16:00 Sennosides (Senna) 8.6 mg PRN Q12HR PRN PO CONSTIPATION 03/28/21 16:00 Ticagrelor (Brilinta) 90 mg BID PO 03/28/21 21:00 03/31/21 08:02 Atorvastatin Calcium (Lipitor) 40 mg QHS PO 03/28/21 21:00 03/30/21 20:35 Insulin Human Lispro (HumaLOG) 10 units DAILYWSUP PRN SQ IF PT EATS >/= 25% OF NGOZI MEAL 03/28/21 16:15 03/29/21 11:54 DC Insulin Human Lispro (HumaLOG) 13 units BIDACBL SQ 03/29/21 07:30 03/29/21 11:56 DC Insulin Glargine (Lantus Syringe) 35 unit DAILYWBKFT SQ 03/29/21 08:00 Multivitamins/ Calcium (Thera-M Plus) 1 tab DAILY PO 03/29/21 09:00 03/31/21 08:02 Ondansetron HCl (Zofran Odt) 4 mg PRN Q12HR PRN PO NAUSEA/VOMITING 03/28/21 16:15 Insulin Human Lispro (HumaLOG) 10 units DAILYWSUP SQ 03/29/21 17:00 03/30/21 17:38 Insulin Human Lispro (HumaLOG) 13 units BIDWBKFT/URIEL SQ 03/29/21 12:00 03/31/21 08:55 Acetaminophen (Tylenol) 650 mg PRN TID PRN PO MILD PAIN / TEMP > 100.3'F 03/29/21 16:00 Fluticasone Propionate (Flonase) 2 spray PRN DAILY PRN NS ALLERGIES 03/29/21 16:00 Bupropion HCl (Wellbutrin Xl) 150 mg DAILY PO 03/30/21 09:00 03/30/21 20:20 DC Bupropion HCl (Wellbutrin Xl) 300 mg DAILY PO 04/02/21 09:00 03/30/21 20:20 DC Bupropion HCl (Wellbutrin) 75 mg 0900,1200 PO 03/31/21 09:00 03/31/21 08:03 Current Medications Medications (Trade) Dose Ordered Sig/Komal Route PRN Reason Start Time Stop Time Status Last Admin Dose Admin Bupropion HCl (Wellbutrin) 75 mg 0900,1200 PO 03/31/21 09:00 03/31/21 08:03 I have reviewed the current psychotropics carefully including drug interactions. Risk benefit ratio favors no change other than as noted in my dictated progress note. Diagnosis: Problems: (1) Major depressive disorder, recurrent, severe with psychotic features (2) Mild cognitive impairment (3) Anxiety disorder, unspecified FREDDY SHEARER MD Mar 31, 2021 09:14
--- NOTE | 2021-03-31 12:05 | NUR ---
WEEKLY ACTIVITY THERAPY NOTE Date of Admission: 03/28/21 Date of AT Assessment: TBD Precipitating behaviors that initiated intake and admission: Patient was reported to be tearful, not eating, depressed r/t deteriorating physical condition post-stroke, expressing he wants to , threatening staff with cane Goal aimed: TBD Initial Goal: TBD Weekly progress towards goal: NA Group participation level: NA Weekly highlights: arrived on [facility] Behaviors observed: Plan: meet/assess pt Beneficial adaptations: TBD
--- NOTE | 2021-03-31 13:05 | NUR ---
ACTIVITY THERAPY ASSESSMENT completed based on notes, observation and interview. Pt was laying in his bed during time of the assessment. Pt often answered with one word answers and lacked interest in the conversation. When asked what activities he enjoys he said "I don't do activities." LIBRARY ATTENDANT explained activities are offered on [facility]. LIBRARY ATTENDANT then asked about his family and he said that he is not and has three children. Pt reported stress from "just being here". When asked how he michael with stress he said " I just handle it." Pt reports that he uses he wheelchair at all times to ambulate. Lastly, pt was able to answer orientation questions accurately. Per notes pt has been demanding and irritable with staff. Pt is also reported to be withdrawn to his room and limits interactions. Initial goal aimed to increase socialization and engagement. Pt will participate in at least five Activity Therapy sessions before discharge.
--- NOTE | 2021-03-31 14:32 | NUR ---
Nursing note: Patient in hallway for morning medication and assessment. Compliant with taking medications crushed/floated in pudding. He is A/O to self & date, able to report town but not hospital as well as unable to state situation. Patient is rude, demanding, confused, and isolative. He ate 75% of breakfast, 3 units insulin given. He ate 50% of lunch, 6 units of insulin given. Patient denies having any pain/discomfort to this nurse. He reported left thumb pain when thumb is touched to PT staff. He propels self through unit and bedroom in w/c. He is currently laying in bed in his room with eyes closed. Will continue to monitor.
[2021-03-31 15:50] VITALS: BP 146/65
[2021-03-31] MEDS: MIRTAZAPINE 15 MG TABLET PO SCH (20:28)
[2021-03-31] MEDS: ATORVASTATIN CALCIUM 20 MG TABLET PO SCH (20:29)
--- NOTE | 2021-03-31 21:50 | PDOC ---
Exam Note: Jareth Note: Please also refer to the separate dictated note~for this date of service dictated separately.~Patient seen individually. Discussed the patient with Nursing staff reviewed the chart.~Reviewed interim history and current functioning. Reviewed vital signs,~Labs/ Radiology~and current medications noted below. Continue current treatment with the changes noted in the dictated addendum note Assessment: Vital Signs/I&O: Vital Signs Date Time Temp Pulse Resp B/P (MAP) Pulse Ox O2 Delivery O2 Flow Rate FiO2 03/31/21 17:24 73 146/65 03/31/21 15:50 97.8 16 96 03/30/21 06:22 Room Air I & O 03/30/21 03/30/21 03/31/21 15:00 23:00 07:00 Intake Total 300 ml 240 ml Balance 300 ml 240 ml Labs: Laboratory Tests Test 03/31/21 07:50 03/31/21 11:50 03/31/21 16:36 03/31/21 19:46 Glucose (Fingerstick) 190 mg/dL (70-99) H 230 mg/dL (70-99) H 195 mg/dL (70-99) H 207 mg/dL (70-99) H Current Medications: Meds: Laboratory Tests Test 03/31/21 07:50 03/31/21 11:50 03/31/21 16:36 03/31/21 19:46 Glucose (Fingerstick) 190 mg/dL 230 mg/dL 195 mg/dL 207 mg/dL Current Medications Medications (Trade) Dose Ordered Sig/Komal Route PRN Reason Start Time Stop Time Status Last Admin Dose Admin Acetaminophen (Tylenol) 650 mg PRN Q6HRS PRN PO MILD PAIN / TEMP > 100.3'F 03/28/21 15:00 03/29/21 16:01 DC Multi-Ingredient Ointment (Analgesic [place]) 1 peggy PRN QID PRN TP MUSCLE PAIN 03/28/21 15:00 Al Hydroxide/Mg Hydroxide (Mylanta Plus Xs) 15 ml PRN AFTMEALHC PRN PO DYSPEPSIA 03/28/21 15:00 Magnesium Hydroxide (Milk Of Magnesia) 2,400 mg PRN QHS PRN PO CONSTIPATION 03/28/21 15:00 Acetaminophen (Tylenol) 650 mg TID PO 03/28/21 21:00 03/29/21 16:01 DC 03/29/21 08:59 Aspirin (Aspirin Chewable) 81 mg DAILY PO 03/29/21 09:00 03/31/21 08:02 Carvedilol (Coreg) 6.25 mg BIDWMEALS PO 03/28/21 17:00 03/31/21 17:24 Vitamin D (Vitamin D3) 2,000 unit DAILY PO 03/29/21 09:00 03/31/21 08:02 Cyanocobalamin (Vitamin B-12) 1,000 mcg QMONTH IM 04/09/21 09:00 Divalproex Sodium (Depakote Sprinkles) 250 mg BID PO 03/28/21 21:00 03/31/21 20:28 Fluticasone Propionate (Flonase) 2 spray DAILY NS 03/29/21 09:00 03/29/21 16:01 DC 03/29/21 08:58 Hydralazine HCl (Apresoline) 10 mg PRN Q8HRS PRN PO HYPERTENSION 03/28/21 16:00 Losartan Potassium (Cozaar) 50 mg DAILY PO 03/29/21 09:00 03/31/21 08:02 Megestrol Acetate (Megace Oral Susp) 400 mg BIDWBKFT/URIEL PO 03/29/21 08:00 03/31/21 12:20 Mirtazapine (Remeron) 15 mg QHS PO 03/28/21 21:00 03/31/21 20:28 Polyethylene Glycol (miraLAX) 17 gm PRN Q12HR PRN PO CONSTIPATION 03/28/21 16:00 Sennosides (Senna) 8.6 mg PRN Q12HR PRN PO CONSTIPATION 03/28/21 16:00 Ticagrelor (Brilinta) 90 mg BID PO 03/28/21 21:00 03/31/21 20:28 Atorvastatin Calcium (Lipitor) 40 mg QHS PO 03/28/21 21:00 03/31/21 20:29 Insulin Human Lispro (HumaLOG) 10 units DAILYWSUP PRN SQ IF PT EATS >/= 25% OF NGOZI MEAL 03/28/21 16:15 03/29/21 11:54 DC Insulin Human Lispro (HumaLOG) 13 units BIDACBL SQ 03/29/21 07:30 03/29/21 11:56 DC Insulin Glargine (Lantus Syringe) 35 unit DAILYWBKFT SQ 03/29/21 08:00 Multivitamins/ Calcium (Thera-M Plus) 1 tab DAILY PO 03/29/21 09:00 03/31/21 08:02 Ondansetron HCl (Zofran Odt) 4 mg PRN Q12HR PRN PO NAUSEA/VOMITING 03/28/21 16:15 Insulin Human Lispro (HumaLOG) 10 units DAILYWSUP SQ 03/29/21 17:00 03/31/21 17:43 Insulin Human Lispro (HumaLOG) 13 units BIDWBKFT/URIEL SQ 03/29/21 12:00 03/31/21 12:49 Acetaminophen (Tylenol) 650 mg PRN TID PRN PO MILD PAIN / TEMP > 100.3'F 03/29/21 16:00 Fluticasone Propionate (Flonase) 2 spray PRN DAILY PRN NS ALLERGIES 03/29/21 16:00 Bupropion HCl (Wellbutrin Xl) 150 mg DAILY PO 03/30/21 09:00 03/30/21 20:20 DC Bupropion HCl (Wellbutrin Xl) 300 mg DAILY PO 04/02/21 09:00 03/30/21 20:20 DC Bupropion HCl (Wellbutrin) 75 mg 0900,1200 PO 03/31/21 09:00 03/31/21 12:20 Current Medications Medications (Trade) Dose Ordered Sig/Komal Route PRN Reason Start Time Stop Time Status Last Admin Dose Admin Bupropion HCl (Wellbutrin) 75 mg 0900,1200 PO 03/31/21 09:00 03/31/21 12:20 I have reviewed the current psychotropics carefully including drug interactions. Risk benefit ratio favors no change other than as noted in my dictated progress note. Diagnosis: Problems: (1) Major depressive disorder, recurrent, severe with psychotic features (2) Mild cognitive impairment (3) Anxiety disorder, unspecified FREDDY SHEARER MD Mar 31, 2021 21:50
--- NOTE | 2021-04-01 00:21 | NUR ---
Patient was in bed when nurse entered the room to give HS medications. He expressed irritation that nurse was bothering him and "continually woke him up all day" so that he was unable to rest. Nurse explained that it was 2030 and once he took the HS medications he would not be bothered by this nurse. Patient then demanded his cell phone to make some calls. Nurse informed him that his cell phone was in the safe and that if he wanted to make some phone calls, he could probably do that tomorrow in the daytime. Patient compliant with meds crushed in chocolate pudding. He requested a 4th blanket as he stated that "it is cold in this room". Leivasy provided per patient request, will continue to monitor.
[2021-04-01 05:43] VITALS: BP 143/77
[2021-04-01] MEDS: MEGESTROL 400 MG/10 ML ORAL.SUSP. PO SCH ×2 (07:42→12:00)
[2021-04-01] MEDS: MULTIVITAMIN with MINERAL TABLET. PO SCH (07:43)
[2021-04-01] MEDS: TICAGRELOR 90 MG TABLET. PO SCH ×2 (07:43→21:00)
[2021-04-01] MEDS: DIVALPROEX 125 MG CAP.SPRINK PO SCH ×2 (07:43→21:58)
[2021-04-01] MEDS: ASPIRIN CHEWABLE 81 MG TABLET. PO SCH (07:43)
[2021-04-01] MEDS: buPROPion 75 MG TABLET PO SCH ×2 (07:43→12:00)
[2021-04-01] MEDS: CHOLECALCIFEROL (VITAMIN D3) 1,000 UNIT TABLET PO SCH (07:43)
[2021-04-01] MEDS: CARVEDILOL 6.25 MG TABLET PO SCH ×2 (07:43→17:13)
[2021-04-01] MEDS: LOSARTAN 50 MG TABLET. PO SCH (07:43)
[2021-04-01] MEDS: INSULIN LISPRO 300 UNITS/3 ML VIAL. SQ SCH ×3 (08:00→17:35)
--- NOTE | 2021-04-01 08:43 | PDOC ---
Exam Note: Jareth Note: This note is a late entry for 03/31/2021 covers elements not covered in my initial note. Subjective: The patient was reviewed at treatment team meeting individually in the morning on 03/31/2021 with Natalie Rashid, Bina Rasmussen, and Janee Nielsen (social media community manager), Alysia, activity therapy and Dorcas JIANG, discussed and reviewed the chart. The patient slept 10 hours previous night. Patients daughter Lorna attended the treatment team meeting and gave very valuable information regarding the patients history of CVA, early December 2020. Appetite 75% and varies. On questioning the patient is oriented to himself and is aware of the date and that he is in [place] but not aware of the name of the hospital. We enquired from the daughter about the patients premorbid personality and it was always somewhat irritable and grouchy but certainly nothing like how he presents now. This is quite significantly part of his major depressive disorder status post CVA. I met with him in his room in the evening. Review of Systems: No CV, , pulmonary, eye, ENT system symptoms on review. Impaired ambulation. Mental Status Exam: The patient is oriented to himself and situation. Speech has some latency, coherent. Abstraction fair. Computation impaired. Language function intact. Attention span short. Mood and affect remains somewhat anxious, irritable. Laboratory Data: Reviewed. Impression: Major depressive disorder, recurrent, severe. Mild cognitive impairment. Anxiety disorder unspecified. Impulse control disorder unspecified. Plan: Continue Depakote Sprinkle 250 mg b.i.d. We may need to adjust this gradually. Maintain Megace for appetite stimulation, Wellbutrin 75 mg b.i.d., Remeron 15 mg h.s. He often chooses medications and we will change the Wellbutrin XL 150 mg a day to Wellbutrin 75 mg a.m. and noon and this can be crushed and mixed in food and fluids. We will continue rest of the psychotropics unchanged. Follow labs level on Depakote. Adjust to reach therapeutic level. Patient has never had seizure episode according to the daughter and was just recently started on Depakote for behavioral dyscontrol. Reviewed drug interactions and risk-benefit ratio. Assessment: Vital Signs/I&O: Vital Signs Date Time Temp Pulse Resp B/P (MAP) Pulse Ox O2 Delivery O2 Flow Rate FiO2 04/01/21 07:43 74 143/77 04/01/21 05:43 97.9 18 98 03/30/21 06:22 Room Air I & O 03/31/21 03/31/21 04/01/21 15:00 23:00 07:00 Intake Total 600 ml 240 ml 0 ml Balance 600 ml 240 ml 0 ml Labs: Laboratory Tests Test 03/31/21 11:50 03/31/21 16:36 03/31/21 19:46 04/01/21 07:40 Glucose (Fingerstick) 230 mg/dL (70-99) H 195 mg/dL (70-99) H 207 mg/dL (70-99) H 213 mg/dL (70-99) H Current Medications: Meds: Laboratory Tests Test 03/31/21 11:50 03/31/21 16:36 03/31/21 19:46 04/01/21 07:40 Glucose (Fingerstick) 230 mg/dL 195 mg/dL 207 mg/dL 213 mg/dL Current Medications Medications (Trade) Dose Ordered Sig/Komal Route PRN Reason Start Time Stop Time Status Last Admin Dose Admin Acetaminophen (Tylenol) 650 mg PRN Q6HRS PRN PO MILD PAIN / TEMP > 100.3'F 03/28/21 15:00 03/29/21 16:01 DC Multi-Ingredient Ointment (Analgesic [place]) 1 peggy PRN QID PRN TP MUSCLE PAIN 03/28/21 15:00 Al Hydroxide/Mg Hydroxide (Mylanta Plus Xs) 15 ml PRN AFTMEALHC PRN PO DYSPEPSIA 03/28/21 15:00 Magnesium Hydroxide (Milk Of Magnesia) 2,400 mg PRN QHS PRN PO CONSTIPATION 03/28/21 15:00 Acetaminophen (Tylenol) 650 mg TID PO 03/28/21 21:00 03/29/21 16:01 DC 03/29/21 08:59 Aspirin (Aspirin Chewable) 81 mg DAILY PO 03/29/21 09:00 04/01/21 07:43 Carvedilol (Coreg) 6.25 mg BIDWMEALS PO 03/28/21 17:00 04/01/21 07:43 Vitamin D (Vitamin D3) 2,000 unit DAILY PO 03/29/21 09:00 04/01/21 07:43 Cyanocobalamin (Vitamin B-12) 1,000 mcg QMONTH IM 04/09/21 09:00 Divalproex Sodium (Depakote Sprinkles) 250 mg BID PO 03/28/21 21:00 04/01/21 07:43 Fluticasone Propionate (Flonase) 2 spray DAILY NS 03/29/21 09:00 03/29/21 16:01 DC 03/29/21 08:58 Hydralazine HCl (Apresoline) 10 mg PRN Q8HRS PRN PO HYPERTENSION 03/28/21 16:00 Losartan Potassium (Cozaar) 50 mg DAILY PO 03/29/21 09:00 04/01/21 07:43 Megestrol Acetate (Megace Oral Susp) 400 mg BIDWBKFT/URIEL PO 03/29/21 08:00 04/01/21 07:42 Mirtazapine (Remeron) 15 mg QHS PO 03/28/21 21:00 03/31/21 20:28 Polyethylene Glycol (miraLAX) 17 gm PRN Q12HR PRN PO CONSTIPATION 03/28/21 16:00 Sennosides (Senna) 8.6 mg PRN Q12HR PRN PO CONSTIPATION 03/28/21 16:00 Ticagrelor (Brilinta) 90 mg BID PO 03/28/21 21:00 04/01/21 07:43 Atorvastatin Calcium (Lipitor) 40 mg QHS PO 03/28/21 21:00 03/31/21 20:29 Insulin Human Lispro (HumaLOG) 10 units DAILYWSUP PRN SQ IF PT EATS >/= 25% OF NGOZI MEAL 03/28/21 16:15 03/29/21 11:54 DC Insulin Human Lispro (HumaLOG) 13 units BIDACBL SQ 03/29/21 07:30 03/29/21 11:56 DC Insulin Glargine (Lantus Syringe) 35 unit DAILYWBKFT SQ 03/29/21 08:00 Multivitamins/ Calcium (Thera-M Plus) 1 tab DAILY PO 03/29/21 09:00 04/01/21 07:43 Ondansetron HCl (Zofran Odt) 4 mg PRN Q12HR PRN PO NAUSEA/VOMITING 03/28/21 16:15 Insulin Human Lispro (HumaLOG) 10 units DAILYWSUP SQ 03/29/21 17:00 03/31/21 17:43 Insulin Human Lispro (HumaLOG) 13 units BIDWBKFT/URIEL SQ 03/29/21 12:00 03/31/21 12:49 Acetaminophen (Tylenol) 650 mg PRN TID PRN PO MILD PAIN / TEMP > 100.3'F 03/29/21 16:00 Fluticasone Propionate (Flonase) 2 spray PRN DAILY PRN NS ALLERGIES 03/29/21 16:00 Bupropion HCl (Wellbutrin Xl) 150 mg DAILY PO 03/30/21 09:00 03/30/21 20:20 DC Bupropion HCl (Wellbutrin Xl) 300 mg DAILY PO 04/02/21 09:00 03/30/21 20:20 DC Bupropion HCl (Wellbutrin) 75 mg 0900,1200 PO 03/31/21 09:00 04/01/21 07:43 Current Medications Medications (Trade) Dose Ordered Sig/Komal Route PRN Reason Start Time Stop Time Status Last Admin Dose Admin Bupropion HCl (Wellbutrin) 75 mg 0900,1200 PO 03/31/21 09:00 04/01/21 07:43 I have reviewed the current psychotropics carefully including drug interactions. Risk benefit ratio favors no change other than as noted in my dictated progress note. Diagnosis: Problems: (1) Major depressive disorder, recurrent, severe with psychotic features (2) Mild cognitive impairment (3) Anxiety disorder, unspecified (4) Impulse control disorder, unspecified FREDDY SHEARER MD Apr 01, 2021 08:43
[2021-04-01] MEDS: INSULIN GLARGINE SYRINGE. SQ SCH (08:57)
--- NOTE | 2021-04-01 10:57 | NUR ---
PSYCHOSOCIAL ASSESSMENT ADMISSION DATE: 03/28/21 CONTACT INFORMATION: DPOA/Guardian Contact Name: Lorna Vasquez-daughter Contact Phone #: [phone] ETHNIC ORIGIN: REASONS FOR ADMISSION: Aggressive Agitated Angry Depressed Isolating Poor impulse control Suicidal ideation ADDITIONAL ADMISSION COMMENTS: Per intake, depressed related to decline in physical condition after CVA, expressions of wanting to , angry, threatening staff with cane or to urinate on the floor so they fall, tearful, agitated, not eating, down 14# since admit to shelter, isolating, and having hypoglycemic episodes related to poor intake. REASON FOR ADMISSION IN PATIENT/FAMILY'S OWN WORDS: Per Amandeep, "I had a stroke." PATIENT/FAMILY EXPECTATIONS FOR ADMISSION: Per Amandeep, "Get me home.", "I was about the most independent cuss you've ever known." LIVING SITUATION: Patient lives with: Longterm Other living arrangements: [facility] Contact Name: Tung Contact Address: [address] [facility] [address] Contact Phone #: [phone] Contact Fax #: [phone] FAMILY RELATIONS: Marital Status: # of Marriages: 1 # of Children: 3 [facility] Family Support: Concerned Additional Comments r/t Family: Amandeep Sharron after meeting [place]. They have three children, Lorna ([facility]), Lara ([place]), and Arjun ([facility]). Amandeep has six grandchildren. Amandeep reports he was to Sharron around thirty years before in 1999. Sharron eight years ago. Amandeep reports having phone conversations with his children. SIGNIFICANT PSYCHIATRIC/MEDICAL HISTORY: Psychiatric/Treatment History: None reported. Pertinent Family History: Amandeep reported that one of his sisters may have had depression. HISTORICAL DATA: Childhood Environment: Stressful Childhood Environment Additional Comments: Amandeep was born in [facility] to Dedrick and Jennifer Vasquez. His father was a serrano and mother was a homemaker. Amandeep was the sixth child born of nine. Amandeep has three brothers and five sisters. He reports them all to be living and has close relations with them. 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 Trauma History: None reported Drug Abuse History last 12 months: None Comment: Amandeep does not smoke, drink alcohol, or use drugs. 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 service: None Oriental Orthodox background: Amandeep does not have a temple preference. Sexual orientation: Heterosexual Educational Level: Amandeep graduated from high school. Past/Present Interests/Hobbies: Amandeep enjoyed quail hunting and being outdoors. Financial support/resources: Social Security Monthly income: Unknown-adequate Person handling finances: Phuong Do you have a history of legal problems: None reported Cultural considerations: None reported SOCIAL RELATIONSHIPS-CURRENT/PAST: Psychiatrist: None PCP: Dr. Jessy Ivory Counselor/Therapist: None Veterans' Administration: N/A Support Group: None Supervisor Volunteer Services/Stock Dealer: Viviana [place] [facility] [place] relationships: Family and staff at [facility] STRENGTHS & WEAKNESSES: Patient's strengths: Good family support Good verbal skills Stable living arrange Patient's weaknesses: Impulsive Health problems Other patient weaknesses: Poor intake resulting in weight loss and hypoglycemic episodes PRELIMINARY PLAN OF TREATMENT: Preliminary plan: Dec. Symp. Depression Promote Coping Skill No Suicidal/Evaristo. ideation Improved Social Skills Medication Stabilization Monitor Med Effects Control abnormal behavior Prevent Deterioration Dec. Aggression Other preliminary treatment comments: Amandeep will be invited to attend recreational and SW group activities while hospitalized. DISCHARGE PLANNING: Discharge planning/disposition: Longterm Additional discharge needs identified: Out patient psychiatry and counseling, if available ADDITIONAL INFORMATION: Other Pertinent Data: CESAR met with Amandeep on 03/31/21 to support and complete psychosocial assessment. order entry administrator of this assessment was completed on 04/01/21. Amandeep was alert and oriented to himself and being hospitalized. He tended to be quiet in nature and did not elaborate on questions asked of him. He appeared to recall recent and remote events and can make his needs and wishes known. Amandeep was tearful throughout conversation. He spoke of wanting to return to his home in [facility]. He feels he will improve if he can just go home. SUSY Rothman, participated in team meeting via phone on 03/31/21. D/C plan is to return to [facility] once stable.
--- NOTE | 2021-04-01 11:25 | TX PLAN ---
Interdisciplinary Tx Plan Admission Information Mar 28, 2021 at 14:27 Legal Status (on Admission): Voluntary, DPOA DPOA/Guardian Name: Lorna Vasquez-daughter Contact Other Contact Name: Tung Other Contact Verified Code Status: DNR Allergies: Coded Allergies: No Known Drug Allergies (Unverified , 03/28/21) Estimated Length of Stay: 14 Diagnoses Primary Diagnosis: MDD Reasons for Admission: Aggressive, Agitated, Depressed, Angry, Suicidal ideation, Isolating, Poor impulse control Problem in Patient's Words: Roger Bernstein, "I had a stroke." Additional Admission Comments: Per intake, depressed related to decline in physical condition after CVA, expressions of wanting to , angry, threatening staff with cane or to unrinate on the floor so they fall, tearful, agitated, not eating, down 14# since admit to senior living, isoalting, and having hypoglycemic episodes related to poor intake. Problems Active Problems: Depressed Isolating Angry Tearful Poor intake Inactive Problems: Medication compliant Averaging nine hours of sleep Pt Strengths/Limitations Ability for [place]: Fair Cognitive Functioning/Ability: Fair Communication Skills/Ability: Fair Financial Resources: Fair Insight/Judgement: Fair Intellectual Ability: Fair Physical Health: Fair Social Skills: Fair Stability in Family: Good Verbal Skills: Fair Discharge Criteria Discharge Criteria: Adequate arrangements @DC, Improved behavior, Improved mood/thought Preliminary Discharge Plan Preliminary DC Plan: [facility] Special Precautions Special Precautions: Agitation/Assault Fall Risk: High Initial D/C Plan [facility] Identified Discharge Needs: Out patient psychiatry and counseling, if available Currently Utilized Resources Currently Utilized Resources/P: PCP 24 hour care and oversight provided by SNF Referrals Community Resources: Out patient psychiatry and counseling, if available Identified Problems/Hx/Goals Objectives/Short-Term Goals Short Term Goals: Control abnormal behavior, Dec. Aggression, Dec. Symp. Depression, Improved Social Skills, Medication Stabilization, Monitor Med Effects, No Suicidal/Evaristo. ideation, Prevent Deterioration, Promote Coping Skill Short Term Goals in Patient's: Roger Bernstein, "Get me home." Interventions/Frequency Staff Interventions/Frequency&: Nursing to provide routine safety checks, medication administration, and adl support. Psychiatry to see three times weekly. SW to see twice weekly. PT/OT eval and tx as indicated. SW and recreational therapy as Amandeep will be involved. 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 Social: Amandeep has enjoyed quail hunting and being outdoors. Education: Amandeep graduated from high school. Community Follow-up PCP Out patient psychiatry and counseling if available Community Provider/Family Inpu: Team meeting was held on 03/31/21. medical data entry clerk of treatment plan was completed on 04/01/21. Lorna, daughter/POA, was involved via phone in team meeting on 03/31/21. Treatment Plan Explained Patient/Jury Consultant had this treatment plan explained to him/her as indicated by the signature below and has been given the opportunity to ask questions and make suggestions: Date: Patient/Jury Consultant Signature: COLETTE BARRAZA Apr 01, 2021 11:25
--- NOTE | 2021-04-01 13:05 | NUR ---
This nurse left patient after giving him his noon medications at 1200. At 1203 staff reported over radio that patient was yelling out that he fell. This nurse went back to patient. He had his left arm draped over the toilet. Staff assisted him to the toilet, he denies pain. He stated he will probably be sore tomorrow. This nurse spoke with Lorna Vasquez, patient's daughter @ 1240, questions answered.
[2021-04-01 13:16] VITALS: BP 151/80
--- NOTE | 2021-04-01 14:19 | NUR ---
CESAR received call from Lorna, daughter/POA, requesting update. Reviewed that Amandeep will be receiving PT/OT/ST while hospitalized. Reviewed current medications and today's intake of meals per request. CESAR will continue to encourage Amandeep to spend more time out of room engaging with others and in group programming. Lorna will be involved in team meeting to be held on 04/07/21.
--- NOTE | 2021-04-01 14:25 | NUR ---
Nursing note: Patient in bedroom for morning medication and assessment. Compliant with taking medications crushed/floated in pudding. He is A/O to self, stated that if he said he didn't know the date what would this nurse do. Patient can be rude, demanding, confused, and isolative. He ate 25% of breakfast, insulin held. He ate a less than 25% of lunch, insulin held. Patient denies having any pain/discomfort to this nurse. He cooperated with PT this afternoon. He propels self through unit and bedroom in w/c. He is currently laying in bed in his room with eyes closed. Will continue to monitor.
[2021-04-01 15:51] VITALS: BP 123/71
[2021-04-01] MEDS: ATORVASTATIN CALCIUM 20 MG TABLET PO SCH (21:59)
[2021-04-01] MEDS: MIRTAZAPINE 15 MG TABLET PO SCH (21:59)
--- NOTE | 2021-04-01 22:10 | NUR ---
Patient has been asleep each time nurse has entered the room to give him HS medications. Will continue to monitor and give if/when he wakes up .
--- NOTE | 2021-04-01 22:24 | PDOC ---
Exam Note: Jareth Note: Please also refer to the separate dictated note~for this date of service dictated separately.~Patient seen individually. Discussed the patient with Nursing staff reviewed the chart.~Reviewed interim history and current functioning. Reviewed vital signs,~Labs/ Radiology~and current medications noted below. Continue current treatment with the changes noted in the dictated addendum note Assessment: Vital Signs/I&O: Vital Signs Date Time Temp Pulse Resp B/P (MAP) Pulse Ox O2 Delivery O2 Flow Rate FiO2 04/01/21 17:13 69 123/71 04/01/21 15:51 98.9 17 97 03/30/21 06:22 Room Air I & O 03/31/21 03/31/21 04/01/21 15:00 23:00 07:00 Intake Total 600 ml 240 ml 0 ml Balance 600 ml 240 ml 0 ml Labs: Laboratory Tests Test 04/01/21 07:40 04/01/21 11:47 04/01/21 17:00 04/01/21 19:13 Glucose (Fingerstick) 213 mg/dL (70-99) H 230 mg/dL (70-99) H 215 mg/dL (70-99) H 163 mg/dL (70-99) H Current Medications: Meds: Laboratory Tests Test 04/01/21 07:40 04/01/21 11:47 04/01/21 17:00 04/01/21 19:13 Glucose (Fingerstick) 213 mg/dL 230 mg/dL 215 mg/dL 163 mg/dL Current Medications Medications (Trade) Dose Ordered Sig/Komal Route PRN Reason Start Time Stop Time Status Last Admin Dose Admin Acetaminophen (Tylenol) 650 mg PRN Q6HRS PRN PO MILD PAIN / TEMP > 100.3'F 03/28/21 15:00 03/29/21 16:01 DC Multi-Ingredient Ointment (Analgesic Regan) 1 peggy PRN QID PRN TP MUSCLE PAIN 03/28/21 15:00 Al Hydroxide/Mg Hydroxide (Mylanta Plus Xs) 15 ml PRN AFTMEALHC PRN PO DYSPEPSIA 03/28/21 15:00 Magnesium Hydroxide (Milk Of Magnesia) 2,400 mg PRN QHS PRN PO CONSTIPATION 03/28/21 15:00 Acetaminophen (Tylenol) 650 mg TID PO 03/28/21 21:00 03/29/21 16:01 DC 03/29/21 08:59 Aspirin (Aspirin Chewable) 81 mg DAILY PO 03/29/21 09:00 04/01/21 07:43 Carvedilol (Coreg) 6.25 mg BIDWMEALS PO 03/28/21 17:00 04/01/21 17:13 Vitamin D (Vitamin D3) 2,000 unit DAILY PO 03/29/21 09:00 04/01/21 07:43 Cyanocobalamin (Vitamin B-12) 1,000 mcg QMONTH IM 04/09/21 09:00 Divalproex Sodium (Depakote Sprinkles) 250 mg BID PO 03/28/21 21:00 04/01/21 07:43 Fluticasone Propionate (Flonase) 2 spray DAILY NS 03/29/21 09:00 03/29/21 16:01 DC 03/29/21 08:58 Hydralazine HCl (Apresoline) 10 mg PRN Q8HRS PRN PO HYPERTENSION 03/28/21 16:00 Losartan Potassium (Cozaar) 50 mg DAILY PO 03/29/21 09:00 04/01/21 07:43 Megestrol Acetate (Megace Oral Susp) 400 mg BIDWBKFT/URIEL PO 03/29/21 08:00 04/01/21 12:00 Mirtazapine (Remeron) 15 mg QHS PO 03/28/21 21:00 03/31/21 20:28 Polyethylene Glycol (miraLAX) 17 gm PRN Q12HR PRN PO CONSTIPATION 03/28/21 16:00 Sennosides (Senna) 8.6 mg PRN Q12HR PRN PO CONSTIPATION 03/28/21 16:00 Ticagrelor (Brilinta) 90 mg BID PO 03/28/21 21:00 04/01/21 07:43 Atorvastatin Calcium (Lipitor) 40 mg QHS PO 03/28/21 21:00 03/31/21 20:29 Insulin Human Lispro (HumaLOG) 10 units DAILYWSUP PRN SQ IF PT EATS >/= 25% OF NGOZI MEAL 03/28/21 16:15 03/29/21 11:54 DC Insulin Human Lispro (HumaLOG) 13 units BIDACBL SQ 03/29/21 07:30 03/29/21 11:56 DC Insulin Glargine (Lantus Syringe) 35 unit DAILYWBKFT SQ 03/29/21 08:00 04/01/21 08:57 Multivitamins/ Calcium (Thera-M Plus) 1 tab DAILY PO 03/29/21 09:00 04/01/21 07:43 Ondansetron HCl (Zofran Odt) 4 mg PRN Q12HR PRN PO NAUSEA/VOMITING 03/28/21 16:15 Insulin Human Lispro (HumaLOG) 10 units DAILYWSUP SQ 03/29/21 17:00 04/01/21 17:35 Insulin Human Lispro (HumaLOG) 13 units BIDWBKFT/URIEL SQ 03/29/21 12:00 03/31/21 12:49 Acetaminophen (Tylenol) 650 mg PRN TID PRN PO MILD PAIN / TEMP > 100.3'F 03/29/21 16:00 Fluticasone Propionate (Flonase) 2 spray PRN DAILY PRN NS ALLERGIES 03/29/21 16:00 Bupropion HCl (Wellbutrin Xl) 150 mg DAILY PO 03/30/21 09:00 03/30/21 20:20 DC Bupropion HCl (Wellbutrin Xl) 300 mg DAILY PO 04/02/21 09:00 03/30/21 20:20 DC Bupropion HCl (Wellbutrin) 75 mg 0900,1200 PO 03/31/21 09:00 04/02/21 14:00 04/01/21 12:00 Bupropion HCl (Wellbutrin) 150 mg 0900 PO 04/02/21 09:00 04/01/21 17:59 DC Bupropion HCl (Wellbutrin) 75 mg NOON PO 04/03/21 12:00 Bupropion HCl (Wellbutrin) 150 mg 0900 PO 04/03/21 09:00 I have reviewed the current psychotropics carefully including drug interactions. Risk benefit ratio favors no change other than as noted in my dictated progress note. Diagnosis: Problems: (1) Major depressive disorder, recurrent, severe with psychotic features (2) Mild cognitive impairment (3) Anxiety disorder, unspecified (4) Impulse control disorder, unspecified FREDDY SHEARER MD Apr 01, 2021 22:24
[2021-04-02 06:08] VITALS: BP 187/69
[2021-04-02] MEDS: INSULIN GLARGINE SYRINGE. SQ SCH (08:00)
[2021-04-02] MEDS: INSULIN LISPRO 300 UNITS/3 ML VIAL. SQ SCH ×3 (08:00→17:41)
[2021-04-02] MEDS ORDERED: buPROPion XL 300 MG TAB.ER.24H. PO SCH (09:00)
[2021-04-02] MEDS ORDERED: buPROPion 75 MG TABLET PO SCH (09:00)
[2021-04-02] MEDS: MULTIVITAMIN with MINERAL TABLET. PO SCH (09:32)
[2021-04-02] MEDS: TICAGRELOR 90 MG TABLET. PO SCH ×2 (09:32→21:00)
[2021-04-02] MEDS: ASPIRIN CHEWABLE 81 MG TABLET. PO SCH (09:32)
[2021-04-02] MEDS: CARVEDILOL 6.25 MG TABLET PO SCH ×2 (09:33→17:37)
[2021-04-02] MEDS: CHOLECALCIFEROL (VITAMIN D3) 1,000 UNIT TABLET PO SCH (09:33)
[2021-04-02] MEDS: LOSARTAN 50 MG TABLET. PO SCH (09:33)
[2021-04-02] MEDS: DIVALPROEX 125 MG CAP.SPRINK PO SCH ×2 (09:33→21:00)
[2021-04-02] MEDS: MEGESTROL 400 MG/10 ML ORAL.SUSP. PO SCH ×2 (09:34→12:37)
[2021-04-02] MEDS: buPROPion 75 MG TABLET PO SCH ×2 (09:35→12:37)
--- NOTE | 2021-04-02 13:44 | NUR ---
Nursing note: Pt in his room at time of AM med pass and assessment. He is pleasant, compliant with meds crusehd in pudding and cooperative with assessment. He denies having any pain/concerns. He expressed gratitude regarding being able to work with PT this AM and requested to continue working with them this afternoon and tomorrow because he "wants to build up my strength so I can get back home." He is currently resting quietly in his room. Will continue to monitor.
[2021-04-02 15:37] VITALS: BP 106/65
[2021-04-02] MEDS: ATORVASTATIN CALCIUM 20 MG TABLET PO SCH (21:00)
[2021-04-02] MEDS: MIRTAZAPINE 15 MG TABLET PO SCH (21:00)
--- NOTE | 2021-04-02 22:01 | PDOC ---
Exam Note: Jareth Note: Information from date of service 03/30/21 and my information from nursing staff for that date and review of labs and interim progress from 03/30/21 was incorporated into the note of 03/31. This note is a late entry for 04/01/2021 covers elements not covered in my initial note. Subjective: The patient was seen individually in the evening of 04/01/2021 with Dorcas JIANG, discussed and reviewed the chart. The patient slept 9-1/2 hours previous night. Patient spends much time in bed, still irritable but less so than before as I met with him in his room. He does go to the dining room, eats his meals, back to bed. He did have a fall today when tried to ambulate to the bathroom. No injury noted. Review of Systems: No CV, , pulmonary, eye, ENT system symptoms on review. Impaired ambulation in wheelchair. Mental Status Exam: The patient is oriented to himself and at times situation. Speech is low in rate and rhythm, low in volume. Abstraction fair. Computation impaired. Language function intact. Attention span short. Mood and affect withdrawn. Laboratory Data: Reviewed. Impression: Major depressive disorder, recurrent, severe. Mild cognitive impairment. Anxiety disorder unspecified. Impulse control disorder unspecified. Plan: Patient continues to be withdrawn, depressed. He is currently on Wellbutrin 75 mg b.i.d. We will increase to 150 mg a.m. and 75 mg noon. Maintain Depakote, Megace, Remeron unchanged for now. Assessment: Vital Signs/I&O: Vital Signs Date Time Temp Pulse Resp B/P (MAP) Pulse Ox O2 Delivery O2 Flow Rate FiO2 04/02/21 17:37 76 106/65 04/02/21 15:37 98.7 18 92 03/30/21 06:22 Room Air I & O 04/01/21 04/01/21 04/02/21 15:00 23:00 07:00 Intake Total 480 ml 360 ml Balance 480 ml 360 ml Labs: Laboratory Tests Test 04/02/21 07:39 04/02/21 11:57 04/02/21 16:56 04/02/21 19:25 Glucose (Fingerstick) 119 mg/dL (70-99) H 197 mg/dL (70-99) H 150 mg/dL (70-99) H 165 mg/dL (70-99) H Current Medications: Meds: Laboratory Tests Test 04/02/21 07:39 04/02/21 11:57 04/02/21 16:56 04/02/21 19:25 Glucose (Fingerstick) 119 mg/dL 197 mg/dL 150 mg/dL 165 mg/dL Current Medications Medications (Trade) Dose Ordered Sig/Komal Route PRN Reason Start Time Stop Time Status Last Admin Dose Admin Acetaminophen (Tylenol) 650 mg PRN Q6HRS PRN PO MILD PAIN / TEMP > 100.3'F 03/28/21 15:00 03/29/21 16:01 DC Multi-Ingredient Ointment (Analgesic Rillito) 1 peggy PRN QID PRN TP MUSCLE PAIN 03/28/21 15:00 Al Hydroxide/Mg Hydroxide (Mylanta Plus Xs) 15 ml PRN AFTMEALHC PRN PO DYSPEPSIA 03/28/21 15:00 Magnesium Hydroxide (Milk Of Magnesia) 2,400 mg PRN QHS PRN PO CONSTIPATION 03/28/21 15:00 Acetaminophen (Tylenol) 650 mg TID PO 03/28/21 21:00 03/29/21 16:01 DC 03/29/21 08:59 Aspirin (Aspirin Chewable) 81 mg DAILY PO 03/29/21 09:00 04/02/21 09:32 Carvedilol (Coreg) 6.25 mg BIDWMEALS PO 03/28/21 17:00 04/02/21 17:37 Vitamin D (Vitamin D3) 2,000 unit DAILY PO 03/29/21 09:00 04/02/21 09:33 Cyanocobalamin (Vitamin B-12) 1,000 mcg QMONTH IM 04/09/21 09:00 Divalproex Sodium (Depakote Sprinkles) 250 mg BID PO 03/28/21 21:00 04/02/21 21:00 Fluticasone Propionate (Flonase) 2 spray DAILY NS 03/29/21 09:00 03/29/21 16:01 DC 03/29/21 08:58 Hydralazine HCl (Apresoline) 10 mg PRN Q8HRS PRN PO HYPERTENSION 03/28/21 16:00 Losartan Potassium (Cozaar) 50 mg DAILY PO 03/29/21 09:00 04/02/21 09:33 Megestrol Acetate (Megace Oral Susp) 400 mg BIDWBKFT/URIEL PO 03/29/21 08:00 04/02/21 12:37 Mirtazapine (Remeron) 15 mg QHS PO 03/28/21 21:00 04/02/21 21:00 Polyethylene Glycol (miraLAX) 17 gm PRN Q12HR PRN PO CONSTIPATION 03/28/21 16:00 Sennosides (Senna) 8.6 mg PRN Q12HR PRN PO CONSTIPATION 03/28/21 16:00 Ticagrelor (Brilinta) 90 mg BID PO 03/28/21 21:00 04/02/21 21:00 Atorvastatin Calcium (Lipitor) 40 mg QHS PO 03/28/21 21:00 04/02/21 21:00 Insulin Human Lispro (HumaLOG) 10 units DAILYWSUP PRN SQ IF PT EATS >/= 25% OF NGOZI MEAL 03/28/21 16:15 03/29/21 11:54 DC Insulin Human Lispro (HumaLOG) 13 units BIDACBL SQ 03/29/21 07:30 03/29/21 11:56 DC Insulin Glargine (Lantus Syringe) 35 unit DAILYWBKFT SQ 03/29/21 08:00 04/01/21 08:57 Multivitamins/ Calcium (Thera-M Plus) 1 tab DAILY PO 03/29/21 09:00 04/02/21 09:32 Ondansetron HCl (Zofran Odt) 4 mg PRN Q12HR PRN PO NAUSEA/VOMITING 03/28/21 16:15 Insulin Human Lispro (HumaLOG) 10 units DAILYWSUP SQ 03/29/21 17:00 04/02/21 17:41 Insulin Human Lispro (HumaLOG) 13 units BIDWBKFT/URIEL SQ 03/29/21 12:00 04/02/21 12:40 Acetaminophen (Tylenol) 650 mg PRN TID PRN PO MILD PAIN / TEMP > 100.3'F 03/29/21 16:00 Fluticasone Propionate (Flonase) 2 spray PRN DAILY PRN NS ALLERGIES 03/29/21 16:00 Bupropion HCl (Wellbutrin Xl) 150 mg DAILY PO 03/30/21 09:00 03/30/21 20:20 DC Bupropion HCl (Wellbutrin Xl) 300 mg DAILY PO 04/02/21 09:00 03/30/21 20:20 DC Bupropion HCl (Wellbutrin) 75 mg 0900,1200 PO 03/31/21 09:00 04/02/21 14:00 DC 04/02/21 12:37 Bupropion HCl (Wellbutrin) 150 mg 0900 PO 04/02/21 09:00 04/01/21 17:59 DC Bupropion HCl (Wellbutrin) 75 mg NOON PO 04/03/21 12:00 Bupropion HCl (Wellbutrin) 150 mg 0900 PO 04/03/21 09:00 I have reviewed the current psychotropics carefully including drug interactions. Risk benefit ratio favors no change other than as noted in my dictated progress note. Diagnosis: Problems: (1) Major depressive disorder, recurrent, severe with psychotic features (2) Mild cognitive impairment (3) Anxiety disorder, unspecified (4) Impulse control disorder, unspecified FREDDY SHEARER MD Apr 02, 2021 22:01
--- NOTE | 2021-04-02 22:01 | PDOC ---
Exam Note: Jareth Note: Please also refer to the separate dictated note~for this date of service dictated separately.~Patient seen individually. Discussed the patient with Nursing staff reviewed the chart.~Reviewed interim history and current functioning. Reviewed vital signs,~Labs/ Radiology~and current medications noted below. Continue current treatment with the changes noted in the dictated addendum note Assessment: Vital Signs/I&O: Vital Signs Date Time Temp Pulse Resp B/P (MAP) Pulse Ox O2 Delivery O2 Flow Rate FiO2 04/02/21 17:37 76 106/65 04/02/21 15:37 98.7 18 92 03/30/21 06:22 Room Air I & O 04/01/21 04/01/21 04/02/21 15:00 23:00 07:00 Intake Total 480 ml 360 ml Balance 480 ml 360 ml Labs: Laboratory Tests Test 04/02/21 07:39 04/02/21 11:57 04/02/21 16:56 04/02/21 19:25 Glucose (Fingerstick) 119 mg/dL (70-99) H 197 mg/dL (70-99) H 150 mg/dL (70-99) H 165 mg/dL (70-99) H Current Medications: Meds: Laboratory Tests Test 04/02/21 07:39 04/02/21 11:57 04/02/21 16:56 04/02/21 19:25 Glucose (Fingerstick) 119 mg/dL 197 mg/dL 150 mg/dL 165 mg/dL Current Medications Medications (Trade) Dose Ordered Sig/Komal Route PRN Reason Start Time Stop Time Status Last Admin Dose Admin Acetaminophen (Tylenol) 650 mg PRN Q6HRS PRN PO MILD PAIN / TEMP > 100.3'F 03/28/21 15:00 03/29/21 16:01 DC Multi-Ingredient Ointment (Analgesic [place]) 1 peggy PRN QID PRN TP MUSCLE PAIN 03/28/21 15:00 Al Hydroxide/Mg Hydroxide (Mylanta Plus Xs) 15 ml PRN AFTMEALHC PRN PO DYSPEPSIA 03/28/21 15:00 Magnesium Hydroxide (Milk Of Magnesia) 2,400 mg PRN QHS PRN PO CONSTIPATION 03/28/21 15:00 Acetaminophen (Tylenol) 650 mg TID PO 03/28/21 21:00 03/29/21 16:01 DC 03/29/21 08:59 Aspirin (Aspirin Chewable) 81 mg DAILY PO 03/29/21 09:00 04/02/21 09:32 Carvedilol (Coreg) 6.25 mg BIDWMEALS PO 03/28/21 17:00 04/02/21 17:37 Vitamin D (Vitamin D3) 2,000 unit DAILY PO 03/29/21 09:00 04/02/21 09:33 Cyanocobalamin (Vitamin B-12) 1,000 mcg QMONTH IM 04/09/21 09:00 Divalproex Sodium (Depakote Sprinkles) 250 mg BID PO 03/28/21 21:00 04/02/21 21:00 Fluticasone Propionate (Flonase) 2 spray DAILY NS 03/29/21 09:00 03/29/21 16:01 DC 03/29/21 08:58 Hydralazine HCl (Apresoline) 10 mg PRN Q8HRS PRN PO HYPERTENSION 03/28/21 16:00 Losartan Potassium (Cozaar) 50 mg DAILY PO 03/29/21 09:00 04/02/21 09:33 Megestrol Acetate (Megace Oral Susp) 400 mg BIDWBKFT/URIEL PO 03/29/21 08:00 04/02/21 12:37 Mirtazapine (Remeron) 15 mg QHS PO 03/28/21 21:00 04/02/21 21:00 Polyethylene Glycol (miraLAX) 17 gm PRN Q12HR PRN PO CONSTIPATION 03/28/21 16:00 Sennosides (Senna) 8.6 mg PRN Q12HR PRN PO CONSTIPATION 03/28/21 16:00 Ticagrelor (Brilinta) 90 mg BID PO 03/28/21 21:00 04/02/21 21:00 Atorvastatin Calcium (Lipitor) 40 mg QHS PO 03/28/21 21:00 04/02/21 21:00 Insulin Human Lispro (HumaLOG) 10 units DAILYWSUP PRN SQ IF PT EATS >/= 25% OF NGOZI MEAL 03/28/21 16:15 03/29/21 11:54 DC Insulin Human Lispro (HumaLOG) 13 units BIDACBL SQ 03/29/21 07:30 03/29/21 11:56 DC Insulin Glargine (Lantus Syringe) 35 unit DAILYWBKFT SQ 03/29/21 08:00 04/01/21 08:57 Multivitamins/ Calcium (Thera-M Plus) 1 tab DAILY PO 03/29/21 09:00 04/02/21 09:32 Ondansetron HCl (Zofran Odt) 4 mg PRN Q12HR PRN PO NAUSEA/VOMITING 03/28/21 16:15 Insulin Human Lispro (HumaLOG) 10 units DAILYWSUP SQ 03/29/21 17:00 04/02/21 17:41 Insulin Human Lispro (HumaLOG) 13 units BIDWBKFT/URIEL SQ 03/29/21 12:00 04/02/21 12:40 Acetaminophen (Tylenol) 650 mg PRN TID PRN PO MILD PAIN / TEMP > 100.3'F 03/29/21 16:00 Fluticasone Propionate (Flonase) 2 spray PRN DAILY PRN NS ALLERGIES 03/29/21 16:00 Bupropion HCl (Wellbutrin Xl) 150 mg DAILY PO 03/30/21 09:00 03/30/21 20:20 DC Bupropion HCl (Wellbutrin Xl) 300 mg DAILY PO 04/02/21 09:00 03/30/21 20:20 DC Bupropion HCl (Wellbutrin) 75 mg 0900,1200 PO 03/31/21 09:00 04/02/21 14:00 DC 04/02/21 12:37 Bupropion HCl (Wellbutrin) 150 mg 0900 PO 04/02/21 09:00 04/01/21 17:59 DC Bupropion HCl (Wellbutrin) 75 mg NOON PO 04/03/21 12:00 Bupropion HCl (Wellbutrin) 150 mg 0900 PO 04/03/21 09:00 I have reviewed the current psychotropics carefully including drug interactions. Risk benefit ratio favors no change other than as noted in my dictated progress note. Diagnosis: Problems: (1) Major depressive disorder, recurrent, severe with psychotic features (2) Mild cognitive impairment (3) Anxiety disorder, unspecified (4) Impulse control disorder, unspecified FREDDY SHEARER MD Apr 02, 2021 22:01
--- NOTE | 2021-04-03 01:44 | NUR ---
Pt has been in his bed tonight he is pleasant and cooperative with staff and took meds whole without difficulty. He has had no behaviors tonight and is glad to be working with PT so he can get stronger so he can go home.
[2021-04-03 06:28] VITALS: BP 145/73
[2021-04-03] MEDS: CHOLECALCIFEROL (VITAMIN D3) 1,000 UNIT TABLET PO SCH (08:26)
[2021-04-03] MEDS: LOSARTAN 50 MG TABLET. PO SCH (08:26)
[2021-04-03] MEDS: MULTIVITAMIN with MINERAL TABLET. PO SCH (08:27)
[2021-04-03] MEDS: DIVALPROEX 125 MG CAP.SPRINK PO SCH ×2 (08:27→21:06)
[2021-04-03] MEDS: CARVEDILOL 6.25 MG TABLET PO SCH ×2 (08:27→17:00)
[2021-04-03] MEDS: TICAGRELOR 90 MG TABLET. PO SCH ×2 (08:27→21:07)
[2021-04-03] MEDS: ASPIRIN CHEWABLE 81 MG TABLET. PO SCH (08:27)
[2021-04-03] MEDS: MEGESTROL 400 MG/10 ML ORAL.SUSP. PO SCH ×2 (08:28→12:00)
[2021-04-03] MEDS: buPROPion 75 MG TABLET PO SCH ×2 (08:28→12:00)
[2021-04-03] MEDS: INSULIN GLARGINE SYRINGE. SQ SCH (09:31)
[2021-04-03] MEDS: INSULIN LISPRO 300 UNITS/3 ML VIAL. SQ SCH ×3 (09:32→17:00)
--- NOTE | 2021-04-03 09:43 | NUR ---
Pt A&Ox4, appropriate in his interactions with this nurse. He presents a little flat in affect, denies SI/HI/VH/AH/delusions/pain. He is compliant with medications crushed and mixed into pudding, he prefers chocolate. His morning BS level is 209 and he ate over 75% of his breakfast; scheduled morning insulins administered. Pt asks when he is able to go home and this nurse encouraged him to discuss d/c plans with SW. Plan of care continues, will pass to next shift.
[2021-04-03 16:09] VITALS: BP 93/67
[2021-04-03] MEDS: MIRTAZAPINE 15 MG TABLET PO SCH (21:06)
[2021-04-03] MEDS: ATORVASTATIN CALCIUM 20 MG TABLET PO SCH (21:06)
--- NOTE | 2021-04-03 22:08 | PDOC ---
Exam Note: Jareth Note: Please also refer to the separate dictated note~for this date of service dictated separately.~Patient seen individually. Discussed the patient with Nursing staff reviewed the chart.~Reviewed interim history and current functioning. Reviewed vital signs,~Labs/ Radiology~and current medications noted below. Continue current treatment with the changes noted in the dictated addendum note Assessment: Vital Signs/I&O: Vital Signs Date Time Temp Pulse Resp B/P (MAP) Pulse Ox O2 Delivery O2 Flow Rate FiO2 04/03/21 17:00 65 93/67 04/03/21 16:09 98.9 18 97 03/30/21 06:22 Room Air I & O 04/02/21 04/02/21 04/03/21 15:00 23:00 07:00 Intake Total 180 ml 600 ml Balance 180 ml 600 ml Labs: Laboratory Tests Test 04/03/21 07:29 04/03/21 11:55 04/03/21 16:43 04/03/21 19:21 Glucose (Fingerstick) 209 mg/dL (70-99) H 244 mg/dL (70-99) H 178 mg/dL (70-99) H 161 mg/dL (70-99) H Current Medications: Meds: Laboratory Tests Test 04/03/21 07:29 04/03/21 11:55 04/03/21 16:43 04/03/21 19:21 Glucose (Fingerstick) 209 mg/dL 244 mg/dL 178 mg/dL 161 mg/dL Current Medications Medications (Trade) Dose Ordered Sig/Komal Route PRN Reason Start Time Stop Time Status Last Admin Dose Admin Acetaminophen (Tylenol) 650 mg PRN Q6HRS PRN PO MILD PAIN / TEMP > 100.3'F 03/28/21 15:00 03/29/21 16:01 DC Multi-Ingredient Ointment (Analgesic [place]) 1 peggy PRN QID PRN TP MUSCLE PAIN 03/28/21 15:00 Al Hydroxide/Mg Hydroxide (Mylanta Plus Xs) 15 ml PRN AFTMEALHC PRN PO DYSPEPSIA 03/28/21 15:00 Magnesium Hydroxide (Milk Of Magnesia) 2,400 mg PRN QHS PRN PO CONSTIPATION 03/28/21 15:00 Acetaminophen (Tylenol) 650 mg TID PO 03/28/21 21:00 03/29/21 16:01 DC 03/29/21 08:59 Aspirin (Aspirin Chewable) 81 mg DAILY PO 03/29/21 09:00 04/03/21 08:27 Carvedilol (Coreg) 6.25 mg BIDWMEALS PO 03/28/21 17:00 04/03/21 17:00 Vitamin D (Vitamin D3) 2,000 unit DAILY PO 03/29/21 09:00 04/03/21 08:26 Cyanocobalamin (Vitamin B-12) 1,000 mcg QMONTH IM 04/09/21 09:00 Divalproex Sodium (Depakote Sprinkles) 250 mg BID PO 03/28/21 21:00 04/03/21 21:06 Fluticasone Propionate (Flonase) 2 spray DAILY NS 03/29/21 09:00 03/29/21 16:01 DC 03/29/21 08:58 Hydralazine HCl (Apresoline) 10 mg PRN Q8HRS PRN PO HYPERTENSION 03/28/21 16:00 Losartan Potassium (Cozaar) 50 mg DAILY PO 03/29/21 09:00 04/03/21 08:26 Megestrol Acetate (Megace Oral Susp) 400 mg BIDWBKFT/URIEL PO 03/29/21 08:00 04/03/21 08:28 Mirtazapine (Remeron) 15 mg QHS PO 03/28/21 21:00 04/03/21 21:06 Polyethylene Glycol (miraLAX) 17 gm PRN Q12HR PRN PO CONSTIPATION 03/28/21 16:00 Sennosides (Senna) 8.6 mg PRN Q12HR PRN PO CONSTIPATION 03/28/21 16:00 Ticagrelor (Brilinta) 90 mg BID PO 03/28/21 21:00 04/03/21 21:07 Atorvastatin Calcium (Lipitor) 40 mg QHS PO 03/28/21 21:00 04/03/21 21:06 Insulin Human Lispro (HumaLOG) 10 units DAILYWSUP PRN SQ IF PT EATS >/= 25% OF NGOZI MEAL 03/28/21 16:15 03/29/21 11:54 DC Insulin Human Lispro (HumaLOG) 13 units BIDACBL SQ 03/29/21 07:30 03/29/21 11:56 DC Insulin Glargine (Lantus Syringe) 35 unit DAILYWBKFT SQ 03/29/21 08:00 04/03/21 09:31 Multivitamins/ Calcium (Thera-M Plus) 1 tab DAILY PO 03/29/21 09:00 04/03/21 08:27 Ondansetron HCl (Zofran Odt) 4 mg PRN Q12HR PRN PO NAUSEA/VOMITING 03/28/21 16:15 Insulin Human Lispro (HumaLOG) 10 units DAILYWSUP SQ 03/29/21 17:00 04/03/21 17:00 Insulin Human Lispro (HumaLOG) 13 units BIDWBKFT/URIEL SQ 03/29/21 12:00 04/03/21 09:32 Acetaminophen (Tylenol) 650 mg PRN TID PRN PO MILD PAIN / TEMP > 100.3'F 03/29/21 16:00 Fluticasone Propionate (Flonase) 2 spray PRN DAILY PRN NS ALLERGIES 03/29/21 16:00 Bupropion HCl (Wellbutrin Xl) 150 mg DAILY PO 03/30/21 09:00 03/30/21 20:20 DC Bupropion HCl (Wellbutrin Xl) 300 mg DAILY PO 04/02/21 09:00 03/30/21 20:20 DC Bupropion HCl (Wellbutrin) 75 mg 0900,1200 PO 03/31/21 09:00 04/02/21 14:00 DC 04/02/21 12:37 Bupropion HCl (Wellbutrin) 150 mg 0900 PO 04/02/21 09:00 04/01/21 17:59 DC Bupropion HCl (Wellbutrin) 75 mg NOON PO 04/03/21 12:00 04/03/21 12:00 Bupropion HCl (Wellbutrin) 150 mg 0900 PO 04/03/21 09:00 04/03/21 08:28 Current Medications Medications (Trade) Dose Ordered Sig/Komal Route PRN Reason Start Time Stop Time Status Last Admin Dose Admin Bupropion HCl (Wellbutrin) 75 mg NOON PO 04/03/21 12:00 04/03/21 12:00 Bupropion HCl (Wellbutrin) 150 mg 0900 PO 04/03/21 09:00 04/03/21 08:28 I have reviewed the current psychotropics carefully including drug interactions. Risk benefit ratio favors no change other than as noted in my dictated progress note. Diagnosis: Problems: (1) Major depressive disorder, recurrent, severe with psychotic features (2) Mild cognitive impairment (3) Anxiety disorder, unspecified (4) Impulse control disorder, unspecified FREDDY SHEARER MD Apr 03, 2021 22:08
[2021-04-04 06:10] VITALS: BP 161/78
[2021-04-04] MEDS: INSULIN LISPRO 300 UNITS/3 ML VIAL. SQ SCH ×3 (07:25→16:48)
[2021-04-04] MEDS: INSULIN GLARGINE SYRINGE. SQ SCH (08:00)
[2021-04-04] MEDS: CHOLECALCIFEROL (VITAMIN D3) 1,000 UNIT TABLET PO SCH (08:18)
[2021-04-04] MEDS: DIVALPROEX 125 MG CAP.SPRINK PO SCH ×2 (08:19→20:16)
[2021-04-04] MEDS: TICAGRELOR 90 MG TABLET. PO SCH ×2 (08:19→20:16)
[2021-04-04] MEDS: MULTIVITAMIN with MINERAL TABLET. PO SCH (08:19)
[2021-04-04] MEDS: CARVEDILOL 6.25 MG TABLET PO SCH ×2 (08:19→17:37)
[2021-04-04] MEDS: ASPIRIN CHEWABLE 81 MG TABLET. PO SCH (08:19)
[2021-04-04] MEDS: buPROPion 75 MG TABLET PO SCH ×2 (08:19→12:00)
[2021-04-04] MEDS: MEGESTROL 400 MG/10 ML ORAL.SUSP. PO SCH ×2 (08:20→12:00)
[2021-04-04] MEDS: LOSARTAN 50 MG TABLET. PO SCH (08:20)
--- NOTE | 2021-04-04 09:16 | NUR ---
Pt A&Ox4, appropriate in his interactions with this nurse. Pt remains slightly flat in affect and says few words during conversations, denies SI/HI/VH/AH/delusions/pain. He is compliant with medications crushed and mixed into pudding. Morning BS 123; scheduled Humalog held. Plan of care continues, will pass to next shift.
--- NOTE | 2021-04-04 10:02 | PDOC ---
Exam Note: Jareth Note: This note is a late entry for 04/02/2021 covers elements not covered in my initial note. Subjective: The patient was seen individually in the evening of 04/02/2021 with Justine JIANG, discussed and reviewed the chart. The patient slept 9-1/2 hours previous night. Appetite is 50%. He takes meds in pudding. He has done well during the day. Review of Systems: No CV, , pulmonary, eye, ENT system symptoms on review. Impaired ambulation in wheelchair. Reliability somewhat poor. Mental Status Exam: The patient is oriented to himself and situation. Speech is coherent. He is quite anxious, wants to go home. Abstraction fair. Computation impaired. Language function intact. Mood and affect depressed. No active suicidal or homicidal ideation. Laboratory Data: Reviewed. Impression: Major depressive disorder, recurrent, severe. Mild cognitive impairment. Anxiety disorder unspecified. Impulse control disorder unspecified. Plan: Continue current psychotropics. We may adjust Wellbutrin further in a day or so. Assessment: Vital Signs/I&O: Vital Signs Date Time Temp Pulse Resp B/P (MAP) Pulse Ox O2 Delivery O2 Flow Rate FiO2 04/04/21 08:20 67 161/78 04/04/21 06:10 97.8 18 94 03/30/21 06:22 Room Air I & O 0 04/03/21 04/03/21 04/04/21 14:59 22:59 06:59 Intake Total 240 ml 360 ml Balance 240 ml 360 ml Labs: Laboratory Tests Test 04/03/21 11:55 04/03/21 15:18 04/03/21 16:43 04/03/21 19:21 Glucose (Fingerstick) 244 mg/dL (70-99) H 178 mg/dL (70-99) H 161 mg/dL (70-99) H SARS-CoV-2 (PCR) Not detected (NOT DETECTD) Test 04/04/21 07:18 Glucose (Fingerstick) 123 mg/dL (70-99) H Current Medications: Meds: Laboratory Tests Test 04/03/21 11:55 04/03/21 15:18 04/03/21 16:43 04/03/21 19:21 Glucose (Fingerstick) 244 mg/dL 178 mg/dL 161 mg/dL Coronavirus (COVID-19)(PCR) Not detected Test 04/04/21 07:18 Glucose (Fingerstick) 123 mg/dL Current Medications Medications (Trade) Dose Ordered Sig/Komal Route PRN Reason Start Time Stop Time Status Last Admin Dose Admin Acetaminophen (Tylenol) 650 mg PRN Q6HRS PRN PO MILD PAIN / TEMP > 100.3'F 03/28/21 15:00 03/29/21 16:01 DC Multi-Ingredient Ointment (Analgesic [place]) 1 peggy PRN QID PRN TP MUSCLE PAIN 03/28/21 15:00 Al Hydroxide/Mg Hydroxide (Mylanta Plus Xs) 15 ml PRN AFTMEALHC PRN PO DYSPEPSIA 03/28/21 15:00 Magnesium Hydroxide (Milk Of Magnesia) 2,400 mg PRN QHS PRN PO 2nd choice CONSTIPATION 03/28/21 15:00 Acetaminophen (Tylenol) 650 mg TID PO 03/28/21 21:00 03/29/21 16:01 DC 03/29/21 08:59 Aspirin (Aspirin Chewable) 81 mg DAILY PO 03/29/21 09:00 04/04/21 08:19 Carvedilol (Coreg) 6.25 mg BIDWMEALS PO 03/28/21 17:00 04/04/21 08:19 Vitamin D (Vitamin D3) 2,000 unit DAILY PO 03/29/21 09:00 04/04/21 08:18 Cyanocobalamin (Vitamin B-12) 1,000 mcg QMONTH IM 04/09/21 09:00 Divalproex Sodium (Depakote Sprinkles) 250 mg BID PO 03/28/21 21:00 04/04/21 08:19 Fluticasone Propionate (Flonase) 2 spray DAILY NS 03/29/21 09:00 03/29/21 16:01 DC 03/29/21 08:58 Hydralazine HCl (Apresoline) 10 mg PRN Q8HRS PRN PO HYPERTENSION 03/28/21 16:00 Losartan Potassium (Cozaar) 50 mg DAILY PO 03/29/21 09:00 04/04/21 08:20 Megestrol Acetate (Megace Oral Susp) 400 mg BIDWBKFT/URIEL PO 03/29/21 08:00 04/04/21 08:20 Mirtazapine (Remeron) 15 mg QHS PO 03/28/21 21:00 04/03/21 21:06 Polyethylene Glycol (miraLAX) 17 gm PRN Q12HR PRN PO 1st choice CONSTIPATION 03/28/21 16:00 Sennosides (Senna) 8.6 mg PRN Q12HR PRN PO 3rd choice CONSTIPATION 03/28/21 16:00 Ticagrelor (Brilinta) 90 mg BID PO 03/28/21 21:00 04/04/21 08:19 Atorvastatin Calcium (Lipitor) 40 mg QHS PO 03/28/21 21:00 04/03/21 21:06 Insulin Human Lispro (HumaLOG) 10 units DAILYWSUP PRN SQ IF PT EATS >/= 25% OF NGOZI MEAL 03/28/21 16:15 03/29/21 11:54 DC Insulin Human Lispro (HumaLOG) 13 units BIDACBL SQ 03/29/21 07:30 03/29/21 11:56 DC Insulin Glargine (Lantus Syringe) 35 unit DAILYWBKFT SQ 03/29/21 08:00 04/04/21 08:00 Multivitamins/ Calcium (Thera-M Plus) 1 tab DAILY PO 03/29/21 09:00 04/04/21 08:19 Ondansetron HCl (Zofran Odt) 4 mg PRN Q12HR PRN PO NAUSEA/VOMITING 03/28/21 16:15 Insulin Human Lispro (HumaLOG) 10 units DAILYWSUP SQ 03/29/21 17:00 04/03/21 17:00 Insulin Human Lispro (HumaLOG) 13 units BIDWBKFT/URIEL SQ 03/29/21 12:00 04/03/21 09:32 Acetaminophen (Tylenol) 650 mg PRN TID PRN PO MILD PAIN / TEMP > 100.3'F 03/29/21 16:00 Fluticasone Propionate (Flonase) 2 spray PRN DAILY PRN NS ALLERGIES 03/29/21 16:00 Bupropion HCl (Wellbutrin Xl) 150 mg DAILY PO 03/30/21 09:00 03/30/21 20:20 DC Bupropion HCl (Wellbutrin Xl) 300 mg DAILY PO 04/02/21 09:00 10/31/21 20:20 DC Bupropion HCl (Wellbutrin) 75 mg 0900,1200 PO 03/31/21 09:00 04/02/21 14:00 DC 04/02/21 12:37 Bupropion HCl (Wellbutrin) 150 mg 0900 PO 04/02/21 09:00 04/01/21 17:59 DC Bupropion HCl (Wellbutrin) 75 mg NOON PO 04/03/21 12:00 04/03/21 12:00 Bupropion HCl (Wellbutrin) 150 mg 0900 PO 04/03/21 09:00 04/04/21 08:19 Current Medications Medications (Trade) Dose Ordered Sig/Komal Route PRN Reason Start Time Stop Time Status Last Admin Dose Admin Bupropion HCl (Wellbutrin) 75 mg NOON PO 04/03/21 12:00 04/03/21 12:00 I have reviewed the current psychotropics carefully including drug interactions. Risk benefit ratio favors no change other than as noted in my dictated progress note. Diagnosis: Problems: (1) Major depressive disorder, recurrent, severe with psychotic features (2) Mild cognitive impairment (3) Anxiety disorder, unspecified (4) Impulse control disorder, unspecified FREDDY SHEARER MD Apr 04, 2021 10:01
--- NOTE | 2021-04-04 15:56 | NUR ---
1:1 with Amandeep to socialize and support. SW observed Amandeep to be eating his noon meal independently with adequate intake. Amandeep was also observed to be sitting up in his w/c after he was moved to the groups boyd and new room. He had two phone calls this afternoon, one from his son and one from a neighbor. Amandeep was tearful at times throughout visit and continues to be focused on going home.
[2021-04-04 15:59] VITALS: BP 128/83
[2021-04-04] MEDS: ATORVASTATIN CALCIUM 20 MG TABLET PO SCH (20:16)
[2021-04-04] MEDS: MIRTAZAPINE 15 MG TABLET PO SCH (20:16)
--- NOTE | 2021-04-04 21:52 | PDOC ---
Exam Note: Jareth Note: Please also refer to the separate dictated note~for this date of service dictated separately.~Patient seen individually. Discussed the patient with Nursing staff reviewed the chart.~Reviewed interim history and current functioning. Reviewed vital signs,~Labs/ Radiology~and current medications noted below. Continue current treatment with the changes noted in the dictated addendum note Assessment: Vital Signs/I&O: Vital Signs Date Time Temp Pulse Resp B/P (MAP) Pulse Ox O2 Delivery O2 Flow Rate FiO2 04/04/21 17:37 88 128/83 04/04/21 15:59 97.3 18 97 03/30/21 06:22 Room Air I & O 04/03/21 04/03/21 04/04/21 15:00 23:00 07:00 Intake Total 240 ml 360 ml Balance 240 ml 360 ml Labs: Laboratory Tests Test 04/04/21 07:18 04/04/21 11:57 04/04/21 16:42 04/04/21 19:34 Glucose (Fingerstick) 123 mg/dL (70-99) H 175 mg/dL (70-99) H 77 mg/dL (70-99) 236 mg/dL (70-99) H Current Medications: Meds: Laboratory Tests Test 04/04/21 07:18 04/04/21 11:57 04/04/21 16:42 04/04/21 19:34 Glucose (Fingerstick) 123 mg/dL 175 mg/dL 77 mg/dL 236 mg/dL Current Medications Medications (Trade) Dose Ordered Sig/Komal Route PRN Reason Start Time Stop Time Status Last Admin Dose Admin Acetaminophen (Tylenol) 650 mg PRN Q6HRS PRN PO MILD PAIN / TEMP > 100.3'F 03/28/21 15:00 03/29/21 16:01 DC Multi-Ingredient Ointment (Analgesic [place]) 1 peggy PRN QID PRN TP MUSCLE PAIN 03/28/21 15:00 Al Hydroxide/Mg Hydroxide (Mylanta Plus Xs) 15 ml PRN AFTMEALHC PRN PO DYSPEPSIA 03/28/21 15:00 Magnesium Hydroxide (Milk Of Magnesia) 2,400 mg PRN QHS PRN PO 2nd choice CONSTIPATION 03/28/21 15:00 Acetaminophen (Tylenol) 650 mg TID PO 03/28/21 21:00 03/29/21 16:01 DC 03/29/21 08:59 Aspirin (Aspirin Chewable) 81 mg DAILY PO 03/29/21 09:00 04/04/21 08:19 Carvedilol (Coreg) 6.25 mg BIDWMEALS PO 03/28/21 17:00 04/04/21 17:37 Vitamin D (Vitamin D3) 2,000 unit DAILY PO 03/29/21 09:00 04/04/21 08:18 Cyanocobalamin (Vitamin B-12) 1,000 mcg QMONTH IM 04/09/21 09:00 Divalproex Sodium (Depakote Sprinkles) 250 mg BID PO 03/28/21 21:00 04/04/21 20:16 Fluticasone Propionate (Flonase) 2 spray DAILY NS 03/29/21 09:00 03/29/21 16:01 DC 03/29/21 08:58 Hydralazine HCl (Apresoline) 10 mg PRN Q8HRS PRN PO HYPERTENSION 03/28/21 16:00 Losartan Potassium (Cozaar) 50 mg DAILY PO 03/29/21 09:00 04/04/21 08:20 Megestrol Acetate (Megace Oral Susp) 400 mg BIDWBKFT/URIEL PO 03/29/21 08:00 04/04/21 12:00 Mirtazapine (Remeron) 15 mg QHS PO 03/28/21 21:00 04/04/21 20:16 Polyethylene Glycol (miraLAX) 17 gm PRN Q12HR PRN PO 1st choice CONSTIPATION 03/28/21 16:00 Sennosides (Senna) 8.6 mg PRN Q12HR PRN PO 3rd choice CONSTIPATION 03/28/21 16:00 Ticagrelor (Brilinta) 90 mg BID PO 03/28/21 21:00 04/04/21 20:16 Atorvastatin Calcium (Lipitor) 40 mg QHS PO 03/28/21 21:00 04/04/21 20:16 Insulin Human Lispro (HumaLOG) 10 units DAILYWSUP PRN SQ IF PT EATS >/= 25% OF NGOZI MEAL 03/28/21 16:15 03/29/21 11:54 DC Insulin Human Lispro (HumaLOG) 13 units BIDACBL SQ 03/29/21 07:30 03/29/21 11:56 DC Insulin Glargine (Lantus Syringe) 35 unit DAILYWBKFT SQ 03/29/21 08:00 04/04/21 08:00 Multivitamins/ Calcium (Thera-M Plus) 1 tab DAILY PO 03/29/21 09:00 04/04/21 08:19 Ondansetron HCl (Zofran Odt) 4 mg PRN Q12HR PRN PO NAUSEA/VOMITING 03/28/21 16:15 Insulin Human Lispro (HumaLOG) 10 units DAILYWSUP SQ 03/29/21 17:00 04/03/21 17:00 Insulin Human Lispro (HumaLOG) 13 units BIDWBKFT/URIEL SQ 03/29/21 12:00 04/04/21 12:00 Acetaminophen (Tylenol) 650 mg PRN TID PRN PO MILD PAIN / TEMP > 100.3'F 03/29/21 16:00 Fluticasone Propionate (Flonase) 2 spray PRN DAILY PRN NS ALLERGIES 03/29/21 16:00 Bupropion HCl (Wellbutrin Xl) 150 mg DAILY PO 03/30/21 09:00 03/30/21 20:20 DC Bupropion HCl (Wellbutrin Xl) 300 mg DAILY PO 04/02/21 09:00 03/30/21 20:20 DC Bupropion HCl (Wellbutrin) 75 mg 0900,1200 PO 03/31/21 09:00 04/02/21 14:00 DC 04/02/21 12:37 Bupropion HCl (Wellbutrin) 150 mg 0900 PO 04/02/21 09:00 04/01/21 17:59 DC Bupropion HCl (Wellbutrin) 75 mg NOON PO 04/03/21 12:00 04/05/21 21:00 04/03/21 12:00 Bupropion HCl (Wellbutrin) 150 mg 0900 PO 04/03/21 09:00 04/04/21 08:19 Bupropion HCl (Wellbutrin Xl) 150 mg 1200 PO 04/06/21 12:00 I have reviewed the current psychotropics carefully including drug interactions. Risk benefit ratio favors no change other than as noted in my dictated progress note. Diagnosis: Problems: (1) Major depressive disorder, recurrent, severe with psychotic features (2) Mild cognitive impairment (3) Anxiety disorder, unspecified (4) Impulse control disorder, unspecified FREDDY SHEARER MD Apr 04, 2021 21:52
--- NOTE | 2021-04-05 01:25 | NUR ---
Last evening pt sat in the day room before bed. He was pleasant social and cooperative with staff. He was oriented but forgetful at times. Meds were taken crushed in vanilla pudding. He has had no behaviors tonight.
[2021-04-05 05:55] VITALS: BP 173/79
[2021-04-05] MEDS: MEGESTROL 400 MG/10 ML ORAL.SUSP. PO SCH ×4 (08:00→12:09)
[2021-04-05] MEDS: INSULIN LISPRO 300 UNITS/3 ML VIAL. SQ SCH ×3 (08:00→17:35)
[2021-04-05] MEDS: INSULIN GLARGINE SYRINGE. SQ SCH (08:00)
[2021-04-05] MEDS: TICAGRELOR 90 MG TABLET. PO SCH ×2 (08:06→20:42)
[2021-04-05] MEDS: MULTIVITAMIN with MINERAL TABLET. PO SCH (08:06)
[2021-04-05] MEDS: buPROPion 75 MG TABLET PO SCH ×2 (08:07→12:09)
[2021-04-05] MEDS: CARVEDILOL 6.25 MG TABLET PO SCH ×2 (08:07→17:09)
[2021-04-05] MEDS: DIVALPROEX 125 MG CAP.SPRINK PO SCH ×2 (08:08→20:40)
[2021-04-05] MEDS: ASPIRIN CHEWABLE 81 MG TABLET. PO SCH (08:08)
[2021-04-05] MEDS: LOSARTAN 50 MG TABLET. PO SCH (08:08)
[2021-04-05] MEDS: CHOLECALCIFEROL (VITAMIN D3) 1,000 UNIT TABLET PO SCH (08:09)
--- NOTE | 2021-04-05 09:10 | NUR ---
Pt has slept past breakfast and did not wake to eat. Morning insulins held. Addendum: 04/05/21 at 1109 by HANNA KNUTSON RN Pt has been visible and present on the unit after waking. He is compliant with medications crushed and mixed into pudding...however he did grumble that this nurse should take the medication instead. After waking he has been up in w/c and in the day room, his interactions with others have been appropriate. He still presents with a flat affect, absent of disruptive behaviors, absent of SI/HI/VH/AH/delusions/pain. Plan of care continues, will pass to next shift.
[2021-04-05 09:54] LABS: VAL ACID 34 mcg/mL (50-100)
[2021-04-05 15:23] VITALS: BP 155/84
[2021-04-05] MEDS: MIRTAZAPINE 15 MG TABLET PO SCH (20:40)
[2021-04-05] MEDS: ATORVASTATIN CALCIUM 20 MG TABLET PO SCH (20:40)
--- NOTE | 2021-04-05 20:47 | PDOC ---
Exam Note: aJreth Note: This note is a late entry for 04/03/2021 covers elements not covered in my initial note. Subjective: The patient was seen individually in the evening of 04/03/2021 with Cristino JIANG, discussed and reviewed the chart. The patient slept 5 hours previous night. Patient has been resistive to cares. He did have shower. I met with him in his room. He is wanting to be discharged. I addressed this with him. Subjectively, he states mood is better. Review of Systems: No CV, , pulmonary, eye, ENT system symptoms on review. Mental Status Exam: The patient is oriented to himself. Speech is coherent has some latency, low in rate and rhythm, low in volume. Abstraction fair. Computation impaired. Language function intact. Mood and affect withdrawn. No suicidal ideation and I closely questioned him on this. Laboratory Data: Reviewed. Impression: Major depressive disorder, recurrent, severe. Mild cognitive impairment. Anxiety disorder unspecified. Impulse control disorder unspecified. Plan: Continue current psychotropics. Assessment: Vital Signs/I&O: Vital Signs Date Time Temp Pulse Resp B/P (MAP) Pulse Ox O2 Delivery O2 Flow Rate FiO2 04/05/21 17:09 81 155/84 04/05/21 15:23 98.2 20 95 04/05/21 05:55 Room Air I & O 04/04/21 04/04/21 04/05/21 15:00 23:00 07:00 Intake Total 480 ml 480 ml Balance 480 ml 480 ml Labs: Laboratory Tests Test 04/05/21 07:11 04/05/21 08:10 04/05/21 11:17 04/05/21 16:19 Glucose (Fingerstick) 197 mg/dL (70-99) H 201 mg/dL (70-99) H 196 mg/dL (70-99) H Valproic Acid Level 34 mcg/mL (50-100) L Valproic Acid Last Dose Date 04/04/21 Valproic Acid Last Dose Time 2100 Test 04/05/21 19:57 Glucose (Fingerstick) 177 mg/dL (70-99) H Current Medications: Meds: Laboratory Tests Test 04/05/21 07:11 04/05/21 08:10 04/05/21 11:17 04/05/21 16:19 Glucose (Fingerstick) 197 mg/dL 201 mg/dL 196 mg/dL Valproic Acid (Depakene) Level 34 mcg/mL Valproic Acid Last Dose Date 04/04/21 Valproic Acid Last Dose Time 2100 Test 04/05/21 19:57 Glucose (Fingerstick) 177 mg/dL Current Medications Medications (Trade) Dose Ordered Sig/Komal Route PRN Reason Start Time Stop Time Status Last Admin Dose Admin Acetaminophen (Tylenol) 650 mg PRN Q6HRS PRN PO MILD PAIN / TEMP > 100.3'F 03/28/21 15:00 03/29/21 16:01 DC Multi-Ingredient Ointment (Analgesic [place]) 1 peggy PRN QID PRN TP MUSCLE PAIN 03/28/21 15:00 Al Hydroxide/Mg Hydroxide (Mylanta Plus Xs) 15 ml PRN AFTMEALHC PRN PO DYSPEPSIA 03/28/21 15:00 Magnesium Hydroxide (Milk Of Magnesia) 2,400 mg PRN QHS PRN PO 2nd choice CONSTIPATION 03/28/21 15:00 Acetaminophen (Tylenol) 650 mg TID PO 03/28/21 21:00 03/29/21 16:01 DC 03/29/21 08:59 Aspirin (Aspirin Chewable) 81 mg DAILY PO 03/29/21 09:00 04/05/21 08:08 Carvedilol (Coreg) 6.25 mg BIDWMEALS PO 03/28/21 17:00 04/05/21 17:09 Vitamin D (Vitamin D3) 2,000 unit DAILY PO 03/29/21 09:00 04/05/21 08:09 Cyanocobalamin (Vitamin B-12) 1,000 mcg QMONTH IM 04/09/21 09:00 Divalproex Sodium (Depakote Sprinkles) 250 mg BID PO 03/28/21 21:00 04/05/21 20:40 Fluticasone Propionate (Flonase) 2 spray DAILY NS 03/29/21 09:00 03/29/21 16:01 DC 03/29/21 08:58 Hydralazine HCl (Apresoline) 10 mg PRN Q8HRS PRN PO HYPERTENSION 03/28/21 16:00 Losartan Potassium (Cozaar) 50 mg DAILY PO 03/29/21 09:00 04/05/21 08:08 Megestrol Acetate (Megace Oral Susp) 400 mg BIDWBKFT/URIEL PO 03/29/21 08:00 04/05/21 12:09 Mirtazapine (Remeron) 15 mg QHS PO 03/28/21 21:00 04/05/21 20:40 Polyethylene Glycol (miraLAX) 17 gm PRN Q12HR PRN PO 1st choice CONSTIPATION 03/28/21 16:00 Sennosides (Senna) 8.6 mg PRN Q12HR PRN PO 3rd choice CONSTIPATION 03/28/21 16:00 Ticagrelor (Brilinta) 90 mg BID PO 03/28/21 21:00 04/05/21 20:42 Atorvastatin Calcium (Lipitor) 40 mg QHS PO 03/28/21 21:00 04/05/21 20:40 Insulin Human Lispro (HumaLOG) 10 units DAILYWSUP PRN SQ IF PT EATS >/= 25% OF NGOZI MEAL 03/28/21 16:15 03/29/21 11:54 DC Insulin Human Lispro (HumaLOG) 13 units BIDACBL SQ 03/29/21 07:30 03/29/21 11:56 DC Insulin Glargine (Lantus Syringe) 35 unit DAILYWBKFT SQ 03/29/21 08:00 04/04/21 08:00 Multivitamins/ Calcium (Thera-M Plus) 1 tab DAILY PO 03/29/21 09:00 04/05/21 08:06 Ondansetron HCl (Zofran Odt) 4 mg PRN Q12HR PRN PO NAUSEA/VOMITING 03/28/21 16:15 Insulin Human Lispro (HumaLOG) 10 units DAILYWSUP SQ 03/29/21 17:00 04/05/21 17:35 Insulin Human Lispro (HumaLOG) 13 units BIDWBKFT/URIEL SQ 03/29/21 12:00 04/05/21 13:09 Acetaminophen (Tylenol) 650 mg PRN TID PRN PO MILD PAIN / TEMP > 100.3'F 03/29/21 16:00 Fluticasone Propionate (Flonase) 2 spray PRN DAILY PRN NS ALLERGIES 03/29/21 16:00 Bupropion HCl (Wellbutrin Xl) 150 mg DAILY PO 03/30/21 09:00 03/30/21 20:20 DC Bupropion HCl (Wellbutrin Xl) 300 mg DAILY PO 04/02/21 09:00 03/30/21 20:20 DC Bupropion HCl (Wellbutrin) 75 mg 0900,1200 PO 03/31/21 09:00 04/02/21 14:00 DC 04/02/21 12:37 Bupropion HCl (Wellbutrin) 150 mg 0900 PO 04/02/21 09:00 04/01/21 17:59 DC Bupropion HCl (Wellbutrin) 75 mg NOON PO 04/03/21 12:00 04/05/21 21:00 04/05/21 12:09 Bupropion HCl (Wellbutrin) 150 mg 0900 PO 04/03/21 09:00 04/05/21 08:07 Bupropion HCl (Wellbutrin Xl) 150 mg 1200 PO 04/06/21 12:00 I have reviewed the current psychotropics carefully including drug interactions. Risk benefit ratio favors no change other than as noted in my dictated progress note. Diagnosis: Problems: (1) Major depressive disorder, recurrent, severe with psychotic features (2) Mild cognitive impairment (3) Anxiety disorder, unspecified (4) Impulse control disorder, unspecified FREDDY SHEARER MD Apr 05, 2021 20:47
--- NOTE | 2021-04-05 20:57 | PDOC ---
Exam Note: Jareth Note: This note is a late entry for 04/04/2021 covers elements not covered in my initial note. Subjective: The patient was seen individually in the evening of 04/04/2021 with Tracie JIANG, discussed and reviewed the chart. The patient slept 6 hours previous night. Patient is alert and oriented x4, coming out of his room, little bit more. We will check valproic acid level in the morning. Often wanting to get back to bed. Denies suicidal ideation. Appetite is fair. Review of Systems: No CV, , pulmonary, eye, ENT system symptoms on review. Ambulation impaired with walker. Mental Status Exam: The patient is oriented to himself and situation. Speech is coherent has some latency. Often response is monosyllabic, low in rate and rhythm, low in volume. Abstraction fair. Computation impaired. Language function intact. Mood and affect withdrawn. Laboratory Data: Reviewed. Impression: Major depressive disorder, recurrent, severe. Mild cognitive impairment. Anxiety disorder unspecified. Impulse control disorder unspecified. Plan: Continue current psychotropics. He is currently on Wellbutrin 75 mg b.i.d. We will increase to 150 mg b.i.d. Continue rest of the psychotropics unchanged. Assessment: Vital Signs/I&O: Vital Signs Date Time Temp Pulse Resp B/P (MAP) Pulse Ox O2 Delivery O2 Flow Rate FiO2 04/05/21 17:09 81 155/84 04/05/21 15:23 98.2 20 95 04/05/21 05:55 Room Air I & O 04/04/21 04/04/21 04/05/21 15:00 23:00 07:00 Intake Total 480 ml 480 ml Balance 480 ml 480 ml Labs: Laboratory Tests Test 04/05/21 07:11 04/05/21 08:10 04/05/21 11:17 04/05/21 16:19 Glucose (Fingerstick) 197 mg/dL (70-99) H 201 mg/dL (70-99) H 196 mg/dL (70-99) H Valproic Acid Level 34 mcg/mL (50-100) L Valproic Acid Last Dose Date 04/04/21 Valproic Acid Last Dose Time 2100 Test 04/05/21 19:57 Glucose (Fingerstick) 177 mg/dL (70-99) H Current Medications: Meds: Laboratory Tests Test 04/05/21 07:11 04/05/21 08:10 04/05/21 11:17 04/05/21 16:19 Glucose (Fingerstick) 197 mg/dL 201 mg/dL 196 mg/dL Valproic Acid (Depakene) Level 34 mcg/mL Valproic Acid Last Dose Date 04/04/21 Valproic Acid Last Dose Time 2100 Test 04/05/21 19:57 Glucose (Fingerstick) 177 mg/dL Current Medications Medications (Trade) Dose Ordered Sig/Komal Route PRN Reason Start Time Stop Time Status Last Admin Dose Admin Acetaminophen (Tylenol) 650 mg PRN Q6HRS PRN PO MILD PAIN / TEMP > 100.3'F 03/28/21 15:00 03/29/21 16:01 DC Multi-Ingredient Ointment (Analgesic [place]) 1 peggy PRN QID PRN TP MUSCLE PAIN 03/28/21 15:00 Al Hydroxide/Mg Hydroxide (Mylanta Plus Xs) 15 ml PRN AFTMEALHC PRN PO DYSPEPSIA 03/28/21 15:00 Magnesium Hydroxide (Milk Of Magnesia) 2,400 mg PRN QHS PRN PO 2nd choice CONSTIPATION 03/28/21 15:00 Acetaminophen (Tylenol) 650 mg TID PO 03/28/21 21:00 03/29/21 16:01 DC 03/29/21 08:59 Aspirin (Aspirin Chewable) 81 mg DAILY PO 03/29/21 09:00 04/05/21 08:08 Carvedilol (Coreg) 6.25 mg BIDWMEALS PO 03/28/21 17:00 04/05/21 17:09 Vitamin D (Vitamin D3) 2,000 unit DAILY PO 03/29/21 09:00 04/05/21 08:09 Cyanocobalamin (Vitamin B-12) 1,000 mcg QMONTH IM 04/09/21 09:00 Divalproex Sodium (Depakote Sprinkles) 250 mg BID PO 03/28/21 21:00 04/05/21 20:40 Fluticasone Propionate (Flonase) 2 spray DAILY NS 03/29/21 09:00 03/29/21 16:01 DC 03/29/21 08:58 Hydralazine HCl (Apresoline) 10 mg PRN Q8HRS PRN PO HYPERTENSION 03/28/21 16:00 Losartan Potassium (Cozaar) 50 mg DAILY PO 03/29/21 09:00 04/05/21 08:08 Megestrol Acetate (Megace Oral Susp) 400 mg BIDWBKFT/URIEL PO 03/29/21 08:00 04/05/21 12:09 Mirtazapine (Remeron) 15 mg QHS PO 03/28/21 21:00 04/05/21 20:40 Polyethylene Glycol (miraLAX) 17 gm PRN Q12HR PRN PO 1st choice CONSTIPATION 03/28/21 16:00 Sennosides (Senna) 8.6 mg PRN Q12HR PRN PO 3rd choice CONSTIPATION 03/28/21 16:00 Ticagrelor (Brilinta) 90 mg BID PO 03/28/21 21:00 04/05/21 20:42 Atorvastatin Calcium (Lipitor) 40 mg QHS PO 03/28/21 21:00 04/05/21 20:40 Insulin Human Lispro (HumaLOG) 10 units DAILYWSUP PRN SQ IF PT EATS >/= 25% OF NGOZI MEAL 03/28/21 16:15 03/29/21 11:54 DC Insulin Human Lispro (HumaLOG) 13 units BIDACBL SQ 03/29/21 07:30 03/29/21 11:56 DC Insulin Glargine (Lantus Syringe) 35 unit DAILYWBKFT SQ 03/29/21 08:00 04/04/21 08:00 Multivitamins/ Calcium (Thera-M Plus) 1 tab DAILY PO 03/29/21 09:00 04/05/21 08:06 Ondansetron HCl (Zofran Odt) 4 mg PRN Q12HR PRN PO NAUSEA/VOMITING 03/28/21 16:15 Insulin Human Lispro (HumaLOG) 10 units DAILYWSUP SQ 03/29/21 17:00 04/05/21 17:35 Insulin Human Lispro (HumaLOG) 13 units BIDWBKFT/URIEL SQ 03/29/21 12:00 04/05/21 13:09 Acetaminophen (Tylenol) 650 mg PRN TID PRN PO MILD PAIN / TEMP > 100.3'F 03/29/21 16:00 Fluticasone Propionate (Flonase) 2 spray PRN DAILY PRN NS ALLERGIES 03/29/21 16:00 Bupropion HCl (Wellbutrin Xl) 150 mg DAILY PO 03/30/21 09:00 03/30/21 20:20 DC Bupropion HCl (Wellbutrin Xl) 300 mg DAILY PO 04/02/21 09:00 03/30/21 20:20 DC Bupropion HCl (Wellbutrin) 75 mg 0900,1200 PO 03/31/21 09:00 04/02/21 14:00 DC 04/02/21 12:37 Bupropion HCl (Wellbutrin) 150 mg 0900 PO 04/02/21 09:00 04/01/21 17:59 DC Bupropion HCl (Wellbutrin) 75 mg NOON PO 04/03/21 12:00 04/05/21 21:00 04/05/21 12:09 Bupropion HCl (Wellbutrin) 150 mg 0900 PO 04/03/21 09:00 04/05/21 08:07 Bupropion HCl (Wellbutrin Xl) 150 mg 1200 PO 04/06/21 12:00 I have reviewed the current psychotropics carefully including drug interactions. Risk benefit ratio favors no change other than as noted in my dictated progress note. Diagnosis: Problems: (1) Major depressive disorder, recurrent, severe with psychotic features (2) Mild cognitive impairment (3) Anxiety disorder, unspecified (4) Impulse control disorder, unspecified FREDDY SHEARER MD Apr 05, 2021 20:57
--- NOTE | 2021-04-05 20:58 | PDOC ---
Exam Note: Jareth Note: Please also refer to the separate dictated note~for this date of service dictated separately.~Patient seen individually. Discussed the patient with Nursing staff reviewed the chart.~Reviewed interim history and current functioning. Reviewed vital signs,~Labs/ Radiology~and current medications noted below. Continue current treatment with the changes noted in the dictated addendum note Assessment: Vital Signs/I&O: Vital Signs Date Time Temp Pulse Resp B/P (MAP) Pulse Ox O2 Delivery O2 Flow Rate FiO2 04/05/21 17:09 81 155/84 04/05/21 15:23 98.2 20 95 04/05/21 05:55 Room Air I & O 04/04/21 04/04/21 04/05/21 15:00 23:00 07:00 Intake Total 480 ml 480 ml Balance 480 ml 480 ml Labs: Laboratory Tests Test 04/05/21 07:11 04/05/21 08:10 04/05/21 11:17 04/05/21 16:19 Glucose (Fingerstick) 197 mg/dL (70-99) H 201 mg/dL (70-99) H 196 mg/dL (70-99) H Valproic Acid Level 34 mcg/mL (50-100) L Valproic Acid Last Dose Date 04/04/21 Valproic Acid Last Dose Time 2100 Test 04/05/21 19:57 Glucose (Fingerstick) 177 mg/dL (70-99) H Current Medications: I have reviewed the current psychotropics carefully including drug interactions. Risk benefit ratio favors no change other than as noted in my dictated progress note. Diagnosis: Problems: (1) Major depressive disorder, recurrent, severe with psychotic features (2) Mild cognitive impairment (3) Anxiety disorder, unspecified (4) Impulse control disorder, unspecified FREDDY SHEARER MD Apr 05, 2021 20:58
--- NOTE | 2021-04-05 23:49 | NUR ---
Pt located in his room this evening. Calm and withdrawn. Compliant with crushed medications. Denies SI.
[2021-04-06 06:27] VITALS: BP 181/84
[2021-04-06] MEDS: MEGESTROL 400 MG/10 ML ORAL.SUSP. PO SCH ×2 (09:21→12:08)
[2021-04-06] MEDS: CHOLECALCIFEROL (VITAMIN D3) 1,000 UNIT TABLET PO SCH (09:22)
[2021-04-06] MEDS: ASPIRIN CHEWABLE 81 MG TABLET. PO SCH (09:22)
[2021-04-06] MEDS: buPROPion 75 MG TABLET PO SCH (09:22)
[2021-04-06] MEDS: MULTIVITAMIN with MINERAL TABLET. PO SCH (09:22)
[2021-04-06] MEDS: TICAGRELOR 90 MG TABLET. PO SCH ×2 (09:22→20:10)
[2021-04-06] MEDS: DIVALPROEX 125 MG CAP.SPRINK PO SCH ×2 (09:22→20:09)
[2021-04-06] MEDS: CARVEDILOL 6.25 MG TABLET PO SCH ×2 (09:23→17:48)
[2021-04-06] MEDS: LOSARTAN 50 MG TABLET. PO SCH ×2 (09:23→16:30)
[2021-04-06] MEDS: INSULIN LISPRO 300 UNITS/3 ML VIAL. SQ SCH ×3 (10:03→17:50)
[2021-04-06] MEDS: INSULIN GLARGINE SYRINGE. SQ SCH (10:04)
[2021-04-06] MEDS ORDERED: buPROPion XL 150 MG TAB.ER.24H PO SCH (12:00)
--- NOTE | 2021-04-06 14:55 | NUR ---
Nursing note: Patient in hallway for morning medication and assessment. He slept past breakfast, medications & insulin given late. Compliant with taking medications crushed/floated in pudding. He is A/O X 3, unable to report situation. Patient can be rude, demanding, confused, withdrawn and isolative. He has put himself on the floor several times today r/t not waiting for staff to assist and not wanting to stay up. Patient denies having any pain/discomfort to this nurse. He propels self through unit and bedroom in w/c. He is currently laying in bed in his room with eyes closed. Will continue to monitor.
[2021-04-06 16:11] VITALS: BP 126/74
[2021-04-06] MEDS: ATORVASTATIN CALCIUM 20 MG TABLET PO SCH (20:09)
[2021-04-06] MEDS: MIRTAZAPINE 15 MG TABLET PO SCH (20:09)
--- NOTE | 2021-04-06 20:29 | PDOC ---
Exam Note: Jareth Note: Please also refer to the separate dictated note~for this date of service dictated separately.~Patient seen individually. Discussed the patient with Nursing staff reviewed the chart.~Reviewed interim history and current functioning. Reviewed vital signs,~Labs/ Radiology~and current medications noted below. Continue current treatment with the changes noted in the dictated addendum note Assessment: Vital Signs/I&O: Vital Signs Date Time Temp Pulse Resp B/P (MAP) Pulse Ox O2 Delivery O2 Flow Rate FiO2 04/06/21 17:48 86 126/74 04/06/21 16:11 98.2 16 97 Room Air I & O 04/05/21 04/05/21 04/06/21 15:00 23:00 07:00 Intake Total 360 ml 480 ml Balance 360 ml 480 ml Labs: Laboratory Tests Test 04/06/21 07:12 04/06/21 11:53 04/06/21 17:19 04/06/21 19:12 Glucose (Fingerstick) 188 mg/dL (70-99) H 207 mg/dL (70-99) H 177 mg/dL (70-99) H 141 mg/dL (70-99) H Current Medications: Meds: Laboratory Tests Test 04/06/21 07:12 04/06/21 11:53 04/06/21 17:19 04/06/21 19:12 Glucose (Fingerstick) 188 mg/dL 207 mg/dL 177 mg/dL 141 mg/dL Current Medications Medications (Trade) Dose Ordered Sig/Komal Route PRN Reason Start Time Stop Time Status Last Admin Dose Admin Acetaminophen (Tylenol) 650 mg PRN Q6HRS PRN PO MILD PAIN / TEMP > 100.3'F 03/28/21 15:00 03/29/21 16:01 DC Multi-Ingredient Ointment (Analgesic [place]) 1 peggy PRN QID PRN TP MUSCLE PAIN 03/28/21 15:00 Al Hydroxide/Mg Hydroxide (Mylanta Plus Xs) 15 ml PRN AFTMEALHC PRN PO DYSPEPSIA 03/28/21 15:00 Magnesium Hydroxide (Milk Of Magnesia) 2,400 mg PRN QHS PRN PO 2nd choice CONSTIPATION 03/28/21 15:00 Acetaminophen (Tylenol) 650 mg TID PO 03/28/21 21:00 03/29/21 16:01 DC 03/29/21 08:59 Aspirin (Aspirin Chewable) 81 mg DAILY PO 03/29/21 09:00 04/06/21 09:22 Carvedilol (Coreg) 6.25 mg BIDWMEALS PO 03/28/21 17:00 04/06/21 17:48 Vitamin D (Vitamin D3) 2,000 unit DAILY PO 03/29/21 09:00 04/06/21 09:22 Cyanocobalamin (Vitamin B-12) 1,000 mcg QMONTH IM 04/09/21 09:00 Divalproex Sodium (Depakote Sprinkles) 250 mg BID PO 03/28/21 21:00 04/06/21 20:09 Fluticasone Propionate (Flonase) 2 spray DAILY NS 03/29/21 09:00 03/29/21 16:01 DC 03/29/21 08:58 Hydralazine HCl (Apresoline) 10 mg PRN Q8HRS PRN PO HYPERTENSION 03/28/21 16:00 Losartan Potassium (Cozaar) 50 mg DAILY PO 03/29/21 09:00 04/06/21 16:31 DC 04/06/21 09:23 Megestrol Acetate (Megace Oral Susp) 400 mg BIDWBKFT/URIEL PO 03/29/21 08:00 04/06/21 12:08 Mirtazapine (Remeron) 15 mg QHS PO 03/28/21 21:00 04/06/21 20:09 Polyethylene Glycol (miraLAX) 17 gm PRN Q12HR PRN PO 1st choice CONSTIPATION 03/28/21 16:00 Sennosides (Senna) 8.6 mg PRN Q12HR PRN PO 3rd choice CONSTIPATION 03/28/21 16:00 Ticagrelor (Brilinta) 90 mg BID PO 03/28/21 21:00 04/06/21 20:10 Atorvastatin Calcium (Lipitor) 40 mg QHS PO 03/28/21 21:00 04/06/21 20:09 Insulin Human Lispro (HumaLOG) 10 units DAILYWSUP PRN SQ IF PT EATS >/= 25% OF NGOZI MEAL 03/28/21 16:15 03/29/21 11:54 DC Insulin Human Lispro (HumaLOG) 13 units BIDACBL SQ 03/29/21 07:30 03/29/21 11:56 DC Insulin Glargine (Lantus Syringe) 35 unit DAILYWBKFT SQ 03/29/21 08:00 04/06/21 10:04 Multivitamins/ Calcium (Thera-M Plus) 1 tab DAILY PO 03/29/21 09:00 04/06/21 09:22 Ondansetron HCl (Zofran Odt) 4 mg PRN Q12HR PRN PO NAUSEA/VOMITING 03/28/21 16:15 Insulin Human Lispro (HumaLOG) 10 units DAILYWSUP SQ 03/29/21 17:00 04/06/21 17:50 Insulin Human Lispro (HumaLOG) 13 units BIDWBKFT/URIEL SQ 03/29/21 12:00 04/06/21 12:14 Acetaminophen (Tylenol) 650 mg PRN TID PRN PO MILD PAIN / TEMP > 100.3'F 03/29/21 16:00 Fluticasone Propionate (Flonase) 2 spray PRN DAILY PRN NS ALLERGIES 03/29/21 16:00 Bupropion HCl (Wellbutrin Xl) 150 mg DAILY PO 03/30/21 09:00 03/30/21 20:20 DC Bupropion HCl (Wellbutrin Xl) 300 mg DAILY PO 04/02/21 09:00 03/30/21 20:20 DC Bupropion HCl (Wellbutrin) 75 mg 0900,1200 PO 03/31/21 09:00 04/02/21 14:00 DC 04/02/21 12:37 Bupropion HCl (Wellbutrin) 150 mg 0900 PO 04/02/21 09:00 04/01/21 17:59 DC Bupropion HCl (Wellbutrin) 75 mg NOON PO 04/03/21 12:00 04/05/21 21:00 DC 04/05/21 12:09 Bupropion HCl (Wellbutrin) 150 mg 0900 PO 04/03/21 09:00 04/06/21 09:22 Bupropion HCl (Wellbutrin Xl) 150 mg 1200 PO 04/06/21 12:00 04/06/21 12:08 Losartan Potassium (Cozaar) 100 mg DAILY PO 04/06/21 16:30 Current Medications Medications (Trade) Dose Ordered Sig/Komal Route PRN Reason Start Time Stop Time Status Last Admin Dose Admin Bupropion HCl (Wellbutrin Xl) 150 mg 1200 PO 04/06/21 12:00 04/06/21 12:08 I have reviewed the current psychotropics carefully including drug interactions. Risk benefit ratio favors no change other than as noted in my dictated progress note. Diagnosis: Problems: (1) Major depressive disorder, recurrent, severe with psychotic features (2) Mild cognitive impairment (3) Anxiety disorder, unspecified (4) Impulse control disorder, unspecified FREDDY SHEARER MD Apr 06, 2021 20:29
--- NOTE | 2021-04-06 23:29 | NUR ---
Pt located in his room calmly laying in bed. Pt with flat, depressed affect. Compliant with whole medications. Pt does not have a BM documented since 03/29. Pt states that he has not had a BM for a week. Pt denies constipation and refuses any medication intervention. Pt has active bowel sounds, abdomen soft.
[2021-04-07 06:00] VITALS: BP 148/71
[2021-04-07 06:15] LABS: BASO # 0.1 x10^3/uL (0.0-0.2); BASO % 1 % (0-3); EOS # 0.3 x10^3/uL (0.0-0.7); EOS % 4 % (0-3); HEMATOCRIT 27.2 % (39.0-53.0); HEMOGLOBIN 9.2 g/dL (13.0-17.5); LYMPH # 1.7 x10^3/uL (1.0-4.8); LYMPH % 22 % (24-48); MEAN CORPUSCULAR HEMOGLOBIN 31 pg (25-35); MEAN CORPUSCULAR HGB CONC 34 g/dL (31-37); MEAN CORPUSCULAR VOLUME 91 fL (79-100); MONO # 0.8 x10^3/uL (0.0-1.1); MONO % 10 % (0-9); NEUT # 5.1 x10^3uL (1.8-7.7); NEUT % 63 % (31-73); PLATELET COUNT 290 x10^3/uL (140-400); RED BLOOD COUNT 2.99 x10^6/uL (4.30-5.70); WHITE BLOOD COUNT 8.1 x10^3/uL (4.0-11.0)
[2021-04-07 06:26] LABS: ALBUMIN 2.8 g/dL (3.4-5.0); CALCIUM 8.5 mg/dL (8.5-10.1); CREATININE 2.1 mg/dL (0.7-1.3); GFR 30.9; POTASSIUM 4.5 mmol/L (3.5-5.1); TOTAL BILIRUBIN 0.3 mg/dL (0.2-1.0); TOTAL PROTEIN 5.7 g/dL (6.4-8.2)
[2021-04-07] MEDS: MEGESTROL 400 MG/10 ML ORAL.SUSP. PO SCH ×2 (08:26→12:10)
[2021-04-07] MEDS: buPROPion 75 MG TABLET PO SCH ×2 (08:27→12:12)
[2021-04-07] MEDS: CHOLECALCIFEROL (VITAMIN D3) 1,000 UNIT TABLET PO SCH (08:27)
[2021-04-07] MEDS: SENNOSIDES 8.6 MG TABLET PO PRN (08:27)
[2021-04-07] MEDS: CARVEDILOL 6.25 MG TABLET PO SCH ×2 (08:27→17:23)
[2021-04-07] MEDS: ASPIRIN CHEWABLE 81 MG TABLET. PO SCH (08:28)
[2021-04-07] MEDS: LOSARTAN 50 MG TABLET. PO SCH (08:28)
[2021-04-07] MEDS: MULTIVITAMIN with MINERAL TABLET. PO SCH (08:28)
[2021-04-07] MEDS: DIVALPROEX 125 MG CAP.SPRINK PO SCH ×2 (08:28→20:15)
[2021-04-07] MEDS: POLYETHYLENE GLYCOL 3350 17 GM PACKET. PO PRN (08:29)
[2021-04-07] MEDS: INSULIN LISPRO 300 UNITS/3 ML VIAL. SQ SCH ×3 (08:31→17:22)
[2021-04-07] MEDS: INSULIN GLARGINE SYRINGE. SQ SCH (08:32)
[2021-04-07] MEDS: TICAGRELOR 90 MG TABLET. PO SCH ×2 (08:35→20:15)
--- NOTE | 2021-04-07 13:00 | NUR ---
WEEKLY ACTIVITY THERAPY NOTE Date of Admission: 03/28/21 Date of AT Assessment: 03/31 Precipitating behaviors that initiated intake and admission: Patient was reported to be tearful, not eating, depressed r/t deteriorating physical condition post-stroke, expressing he wants to , threatening staff with cane Goal aimed: increase socialization and engagement Initial Goal: Pt will participate in at least five Activity Therapy sessions before discharge Weekly progress towards goal: did not achieve Group participation level: none Weekly highlights: moved to group therapy side Behaviors observed: withdrawn to room Plan: no change to goal Beneficial adaptations:
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
--- NOTE | 2021-04-07 14:25 | NUR ---
Nursing note: Patient in dinning room for morning medication and assessment. He is compliant with taking medications crushed/floated in pudding. He is A/O X 3, unable to report situation. Patient can be rude, demanding, confused, withdrawn and isolative. He lays down between meals, this nurse has encouraged him to be up and work on strengthening activities. Patient did work with PT today, he stated he doesn't need to do any other strength training due to working with PT. He denies having any pain/discomfort to this time. He propels self through hallway between room and dinning room in w/c, requires transfer assist with all transfers X1. He frequently forgets he can't transfer self needing reminders. He is currently laying in bed in his room with eyes closed. Will continue to monitor.
[2021-04-07 15:44] VITALS: BP 115/63
[2021-04-07] MEDS: ATORVASTATIN CALCIUM 20 MG TABLET PO SCH (20:15)
[2021-04-07] MEDS: MIRTAZAPINE 15 MG TABLET PO SCH (20:15)
--- NOTE | 2021-04-07 20:47 | PDOC ---
Exam Note: Jareth Note: This note is a late entry for 04/05/2021 covers elements not covered in my initial note. Subjective: The patient was seen individually in the evening of 04/05/2021 with Tracie JIANG, discussed and reviewed the chart. The patient slept 8 hours previous night. Patient has been somewhat isolative, still depressed, irritable at times. I met with him in the dayroom. He was watching television with the others. Review of Systems: No CV, , pulmonary, eye, ENT system symptoms on review. Ambulation impaired with walker. Mental Status Exam: The patient is reasonably oriented. Speech is coherent. Abstraction fair. Computation impaired. Language function intact. Attention span fair. Mood and affect withdrawn, sad but improved. Laboratory Data: Reviewed. Impression: Major depressive disorder, recurrent, severe. Mild cognitive impairment. Anxiety disorder unspecified. Impulse control disorder unspecified. Plan: Continue psychotropics from initial note. We will adjust further depending on his progress in the next 48 hours. Assessment: Vital Signs/I&O: Vital Signs Date Time Temp Pulse Resp B/P (MAP) Pulse Ox O2 Delivery O2 Flow Rate FiO2 04/07/21 17:23 82 115/63 04/07/21 15:44 96.6 16 96 04/07/21 06:00 Room Air I & O 04/06/21 04/06/21 04/07/21 15:00 23:00 07:00 Intake Total 360 ml 600 ml Balance 360 ml 600 ml Labs: Laboratory Tests Test 04/07/21 05:55 04/07/21 07:41 04/07/21 11:54 04/07/21 16:26 White Blood Count 8.1 x10^3/uL (4.0-11.0) Red Blood Count 2.99 x10^6/uL (4.30-5.70) L Hemoglobin 9.2 g/dL (13.0-17.5) L Hematocrit 27.2 % (39.0-53.0) L Mean Corpuscular Volume 91 fL (79-100) Mean Corpuscular Hemoglobin 31 pg (25-35) Mean Corpuscular Hemoglobin Concent 34 g/dL (31-37) Red Cell Distribution Width 15.0 % (11.5-14.5) H Platelet Count 290 x10^3/uL (140-400) Neutrophils (%) (Auto) 63 % (31-73) Lymphocytes (%) (Auto) 22 % (24-48) L Monocytes (%) (Auto) 10 % (0-9) H Eosinophils (%) (Auto) 4 % (0-3) H Basophils (%) (Auto) 1 % (0-3) Neutrophils # (Auto) 5.1 x10^3uL (1.8-7.7) Lymphocytes # (Auto) 1.7 x10^3/uL (1.0-4.8) Monocytes # (Auto) 0.8 x10^3/uL (0.0-1.1) Eosinophils # (Auto) 0.3 x10^3/uL (0.0-0.7) Basophils # (Auto) 0.1 x10^3/uL (0.0-0.2) Sodium Level 138 mmol/L (136-145) Potassium Level 4.5 mmol/L (3.5-5.1) Chloride Level 107 mmol/L (98-107) Carbon Dioxide Level 21 mmol/L (21-32) Anion Gap 10 (6-14) Blood Urea Nitrogen 32 mg/dL (8-26) H Creatinine 2.1 mg/dL (0.7-1.3) H Estimated GFR (Cockcroft-Gault) 30.9 BUN/Creatinine Ratio 15 (6-20) Glucose Level 161 mg/dL (70-99) H Calcium Level 8.5 mg/dL (8.5-10.1) Total Bilirubin 0.3 mg/dL (0.2-1.0) Aspartate Amino Transferase (AST) 11 U/L (15-37) L Alanine Aminotransferase (ALT) 18 U/L (16-63) Alkaline Phosphatase 78 U/L (46-116) Total Protein 5.7 g/dL (6.4-8.2) L Albumin 2.8 g/dL (3.4-5.0) L Albumin/Globulin Ratio 1.0 (1.0-1.7) Glucose (Fingerstick) 155 mg/dL (70-99) H 138 mg/dL (70-99) H 180 mg/dL (70-99) H Test 04/07/21 19:04 Glucose (Fingerstick) 180 mg/dL (70-99) H Current Medications: Meds: Laboratory Tests Test 04/07/21 05:55 04/07/21 07:41 04/07/21 11:54 04/07/21 16:26 White Blood Count 8.1 x10^3/uL Red Blood Count 2.99 x10^6/uL Hemoglobin 9.2 g/dL Hematocrit 27.2 % Mean Corpuscular Volume 91 fL Mean Corpuscular Hemoglobin 31 pg Mean Corpuscular Hemoglobin Concent 34 g/dL Red Cell Distribution Width 15.0 % Platelet Count 290 x10^3/uL Neutrophils (%) (Auto) 63 % Lymphocytes (%) (Auto) 22 % Monocytes (%) (Auto) 10 % Eosinophils (%) (Auto) 4 % Basophils (%) (Auto) 1 % Neutrophils # (Auto) 5.1 x10^3uL Lymphocytes # (Auto) 1.7 x10^3/uL Monocytes # (Auto) 0.8 x10^3/uL Eosinophils # (Auto) 0.3 x10^3/uL Basophils # (Auto) 0.1 x10^3/uL Sodium Level 138 mmol/L Potassium Level 4.5 mmol/L Chloride Level 107 mmol/L Carbon Dioxide Level 21 mmol/L Anion Gap 10 Blood Urea Nitrogen 32 mg/dL Creatinine 2.1 mg/dL Estimated GFR (Cockcroft-Gault) 30.9 BUN/Creatinine Ratio 15 Glucose Level 161 mg/dL Calcium Level 8.5 mg/dL Total Bilirubin 0.3 mg/dL Aspartate Amino Transf (AST/SGOT) 11 U/L Alanine Aminotransferase (ALT/SGPT) 18 U/L Alkaline Phosphatase 78 U/L Total Protein 5.7 g/dL Albumin 2.8 g/dL Albumin/Globulin Ratio 1.0 Glucose (Fingerstick) 155 mg/dL 138 mg/dL 180 mg/dL Test 04/07/21 19:04 Glucose (Fingerstick) 180 mg/dL Current Medications Medications (Trade) Dose Ordered Sig/Komal Route PRN Reason Start Time Stop Time Status Last Admin Dose Admin Acetaminophen (Tylenol) 650 mg PRN Q6HRS PRN PO MILD PAIN / TEMP > 100.3'F 03/28/21 15:00 03/29/21 16:01 DC Multi-Ingredient Ointment (Analgesic [place]) 1 peggy PRN QID PRN TP MUSCLE PAIN 03/28/21 15:00 Al Hydroxide/Mg Hydroxide (Mylanta Plus Xs) 15 ml PRN AFTMEALHC PRN PO DYSPEPSIA 03/28/21 15:00 Magnesium Hydroxide (Milk Of Magnesia) 2,400 mg PRN QHS PRN PO 2nd choice CONSTIPATION 03/28/21 15:00 Acetaminophen (Tylenol) 650 mg TID PO 03/28/21 21:00 03/29/21 16:01 DC 03/29/21 08:59 Aspirin (Aspirin Chewable) 81 mg DAILY PO 03/29/21 09:00 04/07/21 08:28 Carvedilol (Coreg) 6.25 mg BIDWMEALS PO 03/28/21 17:00 04/07/21 17:23 Vitamin D (Vitamin D3) 2,000 unit DAILY PO 03/29/21 09:00 04/07/21 08:27 Cyanocobalamin (Vitamin B-12) 1,000 mcg QMONTH IM 04/09/21 09:00 Divalproex Sodium (Depakote Sprinkles) 250 mg BID PO 03/28/21 21:00 04/07/21 20:15 Fluticasone Propionate (Flonase) 2 spray DAILY NS 03/29/21 09:00 03/29/21 16:01 DC 03/29/21 08:58 Hydralazine HCl (Apresoline) 10 mg PRN Q8HRS PRN PO HYPERTENSION 03/28/21 16:00 Losartan Potassium (Cozaar) 50 mg DAILY PO 03/29/21 09:00 04/06/21 16:31 DC 04/06/21 09:23 Megestrol Acetate (Megace Oral Susp) 400 mg BIDWBKFT/URIEL PO 03/29/21 08:00 04/07/21 12:10 Mirtazapine (Remeron) 15 mg QHS PO 03/28/21 21:00 04/07/21 20:15 Polyethylene Glycol (miraLAX) 17 gm PRN Q12HR PRN PO 1st choice CONSTIPATION 03/28/21 16:00 04/07/21 08:29 Sennosides (Senna) 8.6 mg PRN Q12HR PRN PO 3rd choice CONSTIPATION 03/28/21 16:00 04/07/21 08:27 Ticagrelor (Brilinta) 90 mg BID PO 03/28/21 21:00 04/07/21 20:15 Atorvastatin Calcium (Lipitor) 40 mg QHS PO 03/28/21 21:00 04/07/21 20:15 Insulin Human Lispro (HumaLOG) 10 units DAILYWSUP PRN SQ IF PT EATS >/= 25% OF NGOZI MEAL 03/28/21 16:15 03/29/21 11:54 DC Insulin Human Lispro (HumaLOG) 13 units BIDACBL SQ 03/29/21 07:30 03/29/21 11:56 DC Insulin Glargine (Lantus Syringe) 35 unit DAILYWBKFT SQ 03/29/21 08:00 04/07/21 08:32 Multivitamins/ Calcium (Thera-M Plus) 1 tab DAILY PO 03/29/21 09:00 04/07/21 08:28 Ondansetron HCl (Zofran Odt) 4 mg PRN Q12HR PRN PO NAUSEA/VOMITING 03/28/21 16:15 Insulin Human Lispro (HumaLOG) 10 units DAILYWSUP SQ 03/29/21 17:00 04/07/21 17:22 Insulin Human Lispro (HumaLOG) 13 units BIDWBKFT/URIEL SQ 03/29/21 12:00 04/07/21 12:14 Acetaminophen (Tylenol) 650 mg PRN TID PRN PO MILD PAIN / TEMP > 100.3'F 03/29/21 16:00 Fluticasone Propionate (Flonase) 2 spray PRN DAILY PRN NS ALLERGIES 03/29/21 16:00 Bupropion HCl (Wellbutrin Xl) 150 mg DAILY PO 03/30/21 09:00 03/30/21 20:20 DC Bupropion HCl (Wellbutrin Xl) 300 mg DAILY PO 04/02/21 09:00 03/30/21 20:20 DC Bupropion HCl (Wellbutrin) 75 mg 0900,1200 PO 03/31/21 09:00 04/02/21 14:00 DC 04/02/21 12:37 Bupropion HCl (Wellbutrin) 150 mg 0900 PO 04/02/21 09:00 04/01/21 17:59 DC Bupropion HCl (Wellbutrin) 75 mg NOON PO 04/03/21 12:00 04/05/21 21:00 DC 04/05/21 12:09 Bupropion HCl (Wellbutrin) 150 mg 0900 PO 04/03/21 09:00 04/07/21 09:01 DC 04/07/21 08:27 Bupropion HCl (Wellbutrin Xl) 150 mg 1200 PO 04/06/21 12:00 04/07/21 06:27 DC 04/06/21 12:08 Losartan Potassium (Cozaar) 100 mg DAILY PO 04/06/21 16:30 04/07/21 08:28 Bupropion HCl (Wellbutrin) 300 mg DAILY PO 04/08/21 09:00 Bupropion HCl (Wellbutrin) 150 mg DAILY@1200 PO 04/07/21 12:00 04/07/21 12:12 Current Medications Medications (Trade) Dose Ordered Sig/Komal Route PRN Reason Start Time Stop Time Status Last Admin Dose Admin Bupropion HCl (Wellbutrin) 150 mg DAILY@1200 PO 04/07/21 12:00 04/07/21 12:12 I have reviewed the current psychotropics carefully including drug interactions. Risk benefit ratio favors no change other than as noted in my dictated progress note. Diagnosis: Problems: (1) Major depressive disorder, recurrent, severe with psychotic features (2) Mild cognitive impairment (3) Anxiety disorder, unspecified (4) Impulse control disorder, unspecified FREDDY SHEARER MD Apr 07, 2021 20:47
--- NOTE | 2021-04-07 21:08 | PDOC ---
Exam Note: Jareth Note: This note is a late entry for 04/06/2021 covers elements not covered in my initial note. Subjective: The patient was seen individually in the evening of 04/06/2021 with Trista JIANG, discussed and reviewed the chart. The patient slept 7-3/4 hours previous night. 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 When I asked him about his relationship with her he became extremely tearful, emotional but otherwise he is doing better. At one point he put himself on the floor, today somewhat demanding. Review of Systems: No CV, , pulmonary, eye, ENT system symptoms on review. Ambulation impaired with walker. Mental Status Exam: The patient is oriented to himself and situation. Speech is coherent. Often response is monosyllabic, low in volume. Abstraction fair. Computation impaired. Language function intact. Mood and affect withdrawn. Laboratory Data: Reviewed. Impression: Major depressive disorder, recurrent, severe. Mild cognitive impairment. Anxiety disorder unspecified. Impulse control disorder unspecifi ed. Plan: Continue current psychotropics. The patient is currently on Wellbutrin 150 mg 9 a.m. and noon and after he has been on this for 5 days, we will increase to 300 mg in the morning and 150 mg at noon. Maintain Depakote, Remeron, Megace unchanged for now. Assessment: Vital Signs/I&O: Vital Signs Date Time Temp Pulse Resp B/P (MAP) Pulse Ox O2 Delivery O2 Flow Rate FiO2 04/07/21 17:23 82 115/63 04/07/21 15:44 96.6 16 96 04/07/21 06:00 Room Air I & O 04/06/21 04/06/21 04/07/21 15:00 23:00 07:00 Intake Total 360 ml 600 ml Balance 360 ml 600 ml Labs: Laboratory Tests Test 04/07/21 05:55 04/07/21 07:41 04/07/21 11:54 04/07/21 16:26 White Blood Count 8.1 x10^3/uL (4.0-11.0) Red Blood Count 2.99 x10^6/uL (4.30-5.70) L Hemoglobin 9.2 g/dL (13.0-17.5) L Hematocrit 27.2 % (39.0-53.0) L Mean Corpuscular Volume 91 fL (79-100) Mean Corpuscular Hemoglobin 31 pg (25-35) Mean Corpuscular Hemoglobin Concent 34 g/dL (31-37) Red Cell Distribution Width 15.0 % (11.5-14.5) H Platelet Count 290 x10^3/uL (140-400) Neutrophils (%) (Auto) 63 % (31-73) Lymphocytes (%) (Auto) 22 % (24-48) L Monocytes (%) (Auto) 10 % (0-9) H Eosinophils (%) (Auto) 4 % (0-3) H Basophils (%) (Auto) 1 % (0-3) Neutrophils # (Auto) 5.1 x10^3uL (1.8-7.7) Lymphocytes # (Auto) 1.7 x10^3/uL (1.0-4.8) Monocytes # (Auto) 0.8 x10^3/uL (0.0-1.1) Eosinophils # (Auto) 0.3 x10^3/uL (0.0-0.7) Basophils # (Auto) 0.1 x10^3/uL (0.0-0.2) Sodium Level 138 mmol/L (136-145) Potassium Level 4.5 mmol/L (3.5-5.1) Chloride Level 107 mmol/L (98-107) Carbon Dioxide Level 21 mmol/L (21-32) Anion Gap 10 (6-14) Blood Urea Nitrogen 32 mg/dL (8-26) H Creatinine 2.1 mg/dL (0.7-1.3) H Estimated GFR (Cockcroft-Gault) 30.9 BUN/Creatinine Ratio 15 (6-20) Glucose Level 161 mg/dL (70-99) H Calcium Level 8.5 mg/dL (8.5-10.1) Total Bilirubin 0.3 mg/dL (0.2-1.0) Aspartate Amino Transferase (AST) 11 U/L (15-37) L Alanine Aminotransferase (ALT) 18 U/L (16-63) Alkaline Phosphatase 78 U/L (46-116) Total Protein 5.7 g/dL (6.4-8.2) L Albumin 2.8 g/dL (3.4-5.0) L Albumin/Globulin Ratio 1.0 (1.0-1.7) Glucose (Fingerstick) 155 mg/dL (70-99) H 138 mg/dL (70-99) H 180 mg/dL (70-99) H Test 04/07/21 19:04 Glucose (Fingerstick) 180 mg/dL (70-99) H Current Medications: Meds: Laboratory Tests Test 04/07/21 05:55 04/07/21 07:41 04/07/21 11:54 04/07/21 16:26 White Blood Count 8.1 x10^3/uL Red Blood Count 2.99 x10^6/uL Hemoglobin 9.2 g/dL Hematocrit 27.2 % Mean Corpuscular Volume 91 fL Mean Corpuscular Hemoglobin 31 pg Mean Corpuscular Hemoglobin Concent 34 g/dL Red Cell Distribution Width 15.0 % Platelet Count 290 x10^3/uL Neutrophils (%) (Auto) 63 % Lymphocytes (%) (Auto) 22 % Monocytes (%) (Auto) 10 % Eosinophils (%) (Auto) 4 % Basophils (%) (Auto) 1 % Neutrophils # (Auto) 5.1 x10^3uL Lymphocytes # (Auto) 1.7 x10^3/uL Monocytes # (Auto) 0.8 x10^3/uL Eosinophils # (Auto) 0.3 x10^3/uL Basophils # (Auto) 0.1 x10^3/uL Sodium Level 138 mmol/L Potassium Level 4.5 mmol/L Chloride Level 107 mmol/L Carbon Dioxide Level 21 mmol/L Anion Gap 10 Blood Urea Nitrogen 32 mg/dL Creatinine 2.1 mg/dL Estimated GFR (Cockcroft-Gault) 30.9 BUN/Creatinine Ratio 15 Glucose Level 161 mg/dL Calcium Level 8.5 mg/dL Total Bilirubin 0.3 mg/dL Aspartate Amino Transf (AST/SGOT) 11 U/L Alanine Aminotransferase (ALT/SGPT) 18 U/L Alkaline Phosphatase 78 U/L Total Protein 5.7 g/dL Albumin 2.8 g/dL Albumin/Globulin Ratio 1.0 Glucose (Fingerstick) 155 mg/dL 138 mg/dL 180 mg/dL Test 04/07/21 19:04 Glucose (Fingerstick) 180 mg/dL Current Medications Medications (Trade) Dose Ordered Sig/Komal Route PRN Reason Start Time Stop Time Status Last Admin Dose Admin Acetaminophen (Tylenol) 650 mg PRN Q6HRS PRN PO MILD PAIN / TEMP > 100.3'F 03/28/21 15:00 03/29/21 16:01 DC Multi-Ingredient Ointment (Analgesic [place]) 1 peggy PRN QID PRN TP MUSCLE PAIN 03/28/21 15:00 Al Hydroxide/Mg Hydroxide (Mylanta Plus Xs) 15 ml PRN AFTMEALHC PRN PO DYSPEPSIA 03/28/21 15:00 Magnesium Hydroxide (Milk Of Magnesia) 2,400 mg PRN QHS PRN PO 2nd choice CONSTIPATION 03/28/21 15:00 Acetaminophen (Tylenol) 650 mg TID PO 03/28/21 21:00 03/29/21 16:01 DC 03/29/21 08:59 Aspirin (Aspirin Chewable) 81 mg DAILY PO 03/29/21 09:00 04/07/21 08:28 Carvedilol (Coreg) 6.25 mg BIDWMEALS PO 03/28/21 17:00 04/07/21 17:23 Vitamin D (Vitamin D3) 2,000 unit DAILY PO 03/29/21 09:00 04/07/21 08:27 Cyanocobalamin (Vitamin B-12) 1,000 mcg QMONTH IM 04/09/21 09:00 Divalproex Sodium (Depakote Sprinkles) 250 mg BID PO 03/28/21 21:00 04/07/21 20:15 Fluticasone Propionate (Flonase) 2 spray DAILY NS 03/29/21 09:00 03/29/21 16:01 DC 03/29/21 08:58 Hydralazine HCl (Apresoline) 10 mg PRN Q8HRS PRN PO HYPERTENSION 03/28/21 16:00 Losartan Potassium (Cozaar) 50 mg DAILY PO 03/29/21 09:00 04/06/21 16:31 DC 04/06/21 09:23 Megestrol Acetate (Megace Oral Susp) 400 mg BIDWBKFT/URIEL PO 03/29/21 08:00 04/07/21 12:10 Mirtazapine (Remeron) 15 mg QHS PO 03/28/21 21:00 11/8/21 20:15 Polyethylene Glycol (miraLAX) 17 gm PRN Q12HR PRN PO 1st choice CONSTIPATION 03/28/21 16:00 04/07/21 08:29 Sennosides (Senna) 8.6 mg PRN Q12HR PRN PO 3rd choice CONSTIPATION 03/28/21 16:00 04/07/21 08:27 Ticagrelor (Brilinta) 90 mg BID PO 03/28/21 21:00 04/07/21 20:15 Atorvastatin Calcium (Lipitor) 40 mg QHS PO 03/28/21 21:00 04/07/21 20:15 Insulin Human Lispro (HumaLOG) 10 units DAILYWSUP PRN SQ IF PT EATS >/= 25% OF NGOZI MEAL 03/28/21 16:15 03/29/21 11:54 DC Insulin Human Lispro (HumaLOG) 13 units BIDACBL SQ 03/29/21 07:30 03/29/21 11:56 DC Insulin Glargine (Lantus Syringe) 35 unit DAILYWBKFT SQ 03/29/21 08:00 04/07/21 08:32 Multivitamins/ Calcium (Thera-M Plus) 1 tab DAILY PO 03/29/21 09:00 04/07/21 08:28 Ondansetron HCl (Zofran Odt) 4 mg PRN Q12HR PRN PO NAUSEA/VOMITING 03/28/21 16:15 Insulin Human Lispro (HumaLOG) 10 units DAILYWSUP SQ 03/29/21 17:00 04/07/21 17:22 Insulin Human Lispro (HumaLOG) 13 units BIDWBKFT/URIEL SQ 03/29/21 12:00 04/07/21 12:14 Acetaminophen (Tylenol) 650 mg PRN TID PRN PO MILD PAIN / TEMP > 100.3'F 03/29/21 16:00 Fluticasone Propionate (Flonase) 2 spray PRN DAILY PRN NS ALLERGIES 03/29/21 16:00 Bupropion HCl (Wellbutrin Xl) 150 mg DAILY PO 03/30/21 09:00 03/30/21 20:20 DC Bupropion HCl (Wellbutrin Xl) 300 mg DAILY PO 04/02/21 09:00 03/30/21 20:20 DC Bupropion HCl (Wellbutrin) 75 mg 0900,1200 PO 03/31/21 09:00 04/02/21 14:00 DC 04/02/21 12:37 Bupropion HCl (Wellbutrin) 150 mg 0900 PO 04/02/21 09:00 04/01/21 17:59 DC Bupropion HCl (Wellbutrin) 75 mg NOON PO 04/03/21 12:00 04/05/21 21:00 DC 04/05/21 12:09 Bupropion HCl (Wellbutrin) 150 mg 0900 PO 04/03/21 09:00 04/07/21 09:01 DC 04/07/21 08:27 Bupropion HCl (Wellbutrin Xl) 150 mg 1200 PO 04/06/21 12:00 04/07/21 06:27 DC 04/06/21 12:08 Losartan Potassium (Cozaar) 100 mg DAILY PO 04/06/21 16:30 04/07/21 08:28 Bupropion HCl (Wellbutrin) 300 mg DAILY PO 04/08/21 09:00 Bupropion HCl (Wellbutrin) 150 mg DAILY@1200 PO 04/07/21 12:00 04/07/21 12:12 Current Medications Medications (Trade) Dose Ordered Sig/[place] Route PRN Reason Start Time Stop Time Status Last Admin Dose Admin Bupropion HCl (Wellbutrin) 150 mg DAILY@1200 PO 04/07/21 12:00 04/07/21 12:12 I have reviewed the current psychotropics carefully including drug interactions. Risk benefit ratio favors no change other than as noted in my dictated progress note. Diagnosis: Problems: (1) Major depressive disorder, recurrent, severe with psychotic features (2) Mild cognitive impairment (3) Anxiety disorder, unspecified (4) Impulse control disorder, unspecified FREDDY SHEARER MD Apr 07, 2021 21:08
--- NOTE | 2021-04-07 21:08 | PDOC ---
Exam Note: Jareth Note: Please also refer to the separate dictated note~for this date of service dictated separately.~Patient seen individually. Discussed the patient with Nursing staff reviewed the chart.~Reviewed interim history and current functioning. Reviewed vital signs,~Labs/ Radiology~and current medications noted below. Continue current treatment with the changes noted in the dictated addendum note Assessment: Vital Signs/I&O: Vital Signs Date Time Temp Pulse Resp B/P (MAP) Pulse Ox O2 Delivery O2 Flow Rate FiO2 04/07/21 17:23 82 115/63 04/07/21 15:44 96.6 16 96 04/07/21 06:00 Room Air I & O 04/06/21 04/06/21 04/07/21 15:00 23:00 07:00 Intake Total 360 ml 600 ml Balance 360 ml 600 ml Labs: Laboratory Tests Test 04/07/21 05:55 04/07/21 07:41 04/07/21 11:54 04/07/21 16:26 White Blood Count 8.1 x10^3/uL (4.0-11.0) Red Blood Count 2.99 x10^6/uL (4.30-5.70) L Hemoglobin 9.2 g/dL (13.0-17.5) L Hematocrit 27.2 % (39.0-53.0) L Mean Corpuscular Volume 91 fL (79-100) Mean Corpuscular Hemoglobin 31 pg (25-35) Mean Corpuscular Hemoglobin Concent 34 g/dL (31-37) Red Cell Distribution Width 15.0 % (11.5-14.5) H Platelet Count 290 x10^3/uL (140-400) Neutrophils (%) (Auto) 63 % (31-73) Lymphocytes (%) (Auto) 22 % (24-48) L Monocytes (%) (Auto) 10 % (0-9) H Eosinophils (%) (Auto) 4 % (0-3) H Basophils (%) (Auto) 1 % (0-3) Neutrophils # (Auto) 5.1 x10^3uL (1.8-7.7) Lymphocytes # (Auto) 1.7 x10^3/uL (1.0-4.8) Monocytes # (Auto) 0.8 x10^3/uL (0.0-1.1) Eosinophils # (Auto) 0.3 x10^3/uL (0.0-0.7) Basophils # (Auto) 0.1 x10^3/uL (0.0-0.2) Sodium Level 138 mmol/L (136-145) Potassium Level 4.5 mmol/L (3.5-5.1) Chloride Level 107 mmol/L (98-107) Carbon Dioxide Level 21 mmol/L (21-32) Anion Gap 10 (6-14) Blood Urea Nitrogen 32 mg/dL (8-26) H Creatinine 2.1 mg/dL (0.7-1.3) H Estimated GFR (Cockcroft-Gault) 30.9 BUN/Creatinine Ratio 15 (6-20) Glucose Level 161 mg/dL (70-99) H Calcium Level 8.5 mg/dL (8.5-10.1) Total Bilirubin 0.3 mg/dL (0.2-1.0) Aspartate Amino Transferase (AST) 11 U/L (15-37) L Alanine Aminotransferase (ALT) 18 U/L (16-63) Alkaline Phosphatase 78 U/L (46-116) Total Protein 5.7 g/dL (6.4-8.2) L Albumin 2.8 g/dL (3.4-5.0) L Albumin/Globulin Ratio 1.0 (1.0-1.7) Glucose (Fingerstick) 155 mg/dL (70-99) H 138 mg/dL (70-99) H 180 mg/dL (70-99) H Test 04/07/21 19:04 Glucose (Fingerstick) 180 mg/dL (70-99) H Current Medications: Meds: Laboratory Tests Test 04/07/21 05:55 04/07/21 07:41 04/07/21 11:54 04/07/21 16:26 White Blood Count 8.1 x10^3/uL Red Blood Count 2.99 x10^6/uL Hemoglobin 9.2 g/dL Hematocrit 27.2 % Mean Corpuscular Volume 91 fL Mean Corpuscular Hemoglobin 31 pg Mean Corpuscular Hemoglobin Concent 34 g/dL Red Cell Distribution Width 15.0 % Platelet Count 290 x10^3/uL Neutrophils (%) (Auto) 63 % Lymphocytes (%) (Auto) 22 % Monocytes (%) (Auto) 10 % Eosinophils (%) (Auto) 4 % Basophils (%) (Auto) 1 % Neutrophils # (Auto) 5.1 x10^3uL Lymphocytes # (Auto) 1.7 x10^3/uL Monocytes # (Auto) 0.8 x10^3/uL Eosinophils # (Auto) 0.3 x10^3/uL Basophils # (Auto) 0.1 x10^3/uL Sodium Level 138 mmol/L Potassium Level 4.5 mmol/L Chloride Level 107 mmol/L Carbon Dioxide Level 21 mmol/L Anion Gap 10 Blood Urea Nitrogen 32 mg/dL Creatinine 2.1 mg/dL Estimated GFR (Cockcroft-Gault) 30.9 BUN/Creatinine Ratio 15 Glucose Level 161 mg/dL Calcium Level 8.5 mg/dL Total Bilirubin 0.3 mg/dL Aspartate Amino Transf (AST/SGOT) 11 U/L Alanine Aminotransferase (ALT/SGPT) 18 U/L Alkaline Phosphatase 78 U/L Total Protein 5.7 g/dL Albumin 2.8 g/dL Albumin/Globulin Ratio 1.0 Glucose (Fingerstick) 155 mg/dL 138 mg/dL 180 mg/dL Test 04/07/21 19:04 Glucose (Fingerstick) 180 mg/dL Current Medications Medications (Trade) Dose Ordered Sig/Komal Route PRN Reason Start Time Stop Time Status Last Admin Dose Admin Acetaminophen (Tylenol) 650 mg PRN Q6HRS PRN PO MILD PAIN / TEMP > 100.3'F 03/28/21 15:00 03/29/21 16:01 DC Multi-Ingredient Ointment (Analgesic [place]) 1 peggy PRN QID PRN TP MUSCLE PAIN 03/28/21 15:00 Al Hydroxide/Mg Hydroxide (Mylanta Plus Xs) 15 ml PRN AFTMEALHC PRN PO DYSPEPSIA 03/28/21 15:00 Magnesium Hydroxide (Milk Of Magnesia) 2,400 mg PRN QHS PRN PO 2nd choice CONSTIPATION 03/28/21 15:00 Acetaminophen (Tylenol) 650 mg TID PO 03/28/21 21:00 03/29/21 16:01 DC 03/29/21 08:59 Aspirin (Aspirin Chewable) 81 mg DAILY PO 03/29/21 09:00 04/07/21 08:28 Carvedilol (Coreg) 6.25 mg BIDWMEALS PO 03/28/21 17:00 04/07/21 17:23 Vitamin D (Vitamin D3) 2,000 unit DAILY PO 03/29/21 09:00 04/07/21 08:27 Cyanocobalamin (Vitamin B-12) 1,000 mcg QMONTH IM 04/09/21 09:00 Divalproex Sodium (Depakote Sprinkles) 250 mg BID PO 03/28/21 21:00 04/07/21 20:15 Fluticasone Propionate (Flonase) 2 spray DAILY NS 03/29/21 09:00 03/29/21 16:01 DC 03/29/21 08:58 Hydralazine HCl (Apresoline) 10 mg PRN Q8HRS PRN PO HYPERTENSION 03/28/21 16:00 Losartan Potassium (Cozaar) 50 mg DAILY PO 03/29/21 09:00 04/06/21 16:31 DC 04/06/21 09:23 Megestrol Acetate (Megace Oral Susp) 400 mg BIDWBKFT/URIEL PO 03/29/21 08:00 04/07/21 12:10 Mirtazapine (Remeron) 15 mg QHS PO 03/28/21 21:00 04/07/21 20:15 Polyethylene Glycol (miraLAX) 17 gm PRN Q12HR PRN PO 1st choice CONSTIPATION 03/28/21 16:00 04/07/21 08:29 Sennosides (Senna) 8.6 mg PRN Q12HR PRN PO 3rd choice CONSTIPATION 03/28/21 16:00 04/07/21 08:27 Ticagrelor (Brilinta) 90 mg BID PO 03/28/21 21:00 04/07/21 20:15 Atorvastatin Calcium (Lipitor) 40 mg QHS PO 03/28/21 21:00 04/07/21 20:15 Insulin Human Lispro (HumaLOG) 10 units DAILYWSUP PRN SQ IF PT EATS >/= 25% OF NGOZI MEAL 03/28/21 16:15 03/29/21 11:54 DC Insulin Human Lispro (HumaLOG) 13 units BIDACBL SQ 03/29/21 07:30 03/29/21 11:56 DC Insulin Glargine (Lantus Syringe) 35 unit DAILYWBKFT SQ 03/29/21 08:00 04/07/21 08:32 Multivitamins/ Calcium (Thera-M Plus) 1 tab DAILY PO 03/29/21 09:00 04/07/21 08:28 Ondansetron HCl (Zofran Odt) 4 mg PRN Q12HR PRN PO NAUSEA/VOMITING 03/28/21 16:15 Insulin Human Lispro (HumaLOG) 10 units DAILYWSUP SQ 03/29/21 17:00 04/07/21 17:22 Insulin Human Lispro (HumaLOG) 13 units BIDWBKFT/URIEL SQ 03/29/21 12:00 04/07/21 12:14 Acetaminophen (Tylenol) 650 mg PRN TID PRN PO MILD PAIN / TEMP > 100.3'F 03/29/21 16:00 Fluticasone Propionate (Flonase) 2 spray PRN DAILY PRN NS ALLERGIES 03/29/21 16:00 Bupropion HCl (Wellbutrin Xl) 150 mg DAILY PO 03/30/21 09:00 03/30/21 20:20 DC Bupropion HCl (Wellbutrin Xl) 300 mg DAILY PO 04/02/21 09:00 03/30/21 20:20 DC Bupropion HCl (Wellbutrin) 75 mg 0900,1200 PO 03/31/21 09:00 04/02/21 14:00 DC 04/02/21 12:37 Bupropion HCl (Wellbutrin) 150 mg 0900 PO 04/02/21 09:00 04/01/21 17:59 DC Bupropion HCl (Wellbutrin) 75 mg NOON PO 04/03/21 12:00 04/05/21 21:00 DC 04/05/21 12:09 Bupropion HCl (Wellbutrin) 150 mg 0900 PO 04/03/21 09:00 04/07/21 09:01 DC 04/07/21 08:27 Bupropion HCl (Wellbutrin Xl) 150 mg 1200 PO 04/06/21 12:00 04/07/21 06:27 DC 04/06/21 12:08 Losartan Potassium (Cozaar) 100 mg DAILY PO 04/06/21 16:30 04/07/21 08:28 Bupropion HCl (Wellbutrin) 300 mg DAILY PO 04/08/21 09:00 Bupropion HCl (Wellbutrin) 150 mg DAILY@1200 PO 04/07/21 12:00 04/07/21 12:12 Current Medications Medications (Trade) Dose Ordered Sig/Komal Route PRN Reason Start Time Stop Time Status Last Admin Dose Admin Bupropion HCl (Wellbutrin) 150 mg DAILY@1200 PO 04/07/21 12:00 04/07/21 12:12 I have reviewed the current psychotropics carefully including drug interactions. Risk benefit ratio favors no change other than as noted in my dictated progress note. Diagnosis: Problems: (1) Major depressive disorder, recurrent, severe with psychotic features (2) Mild cognitive impairment (3) Anxiety disorder, unspecified (4) Impulse control disorder, unspecified FREDDY SHEARER MD Apr 07, 2021 21:08
--- NOTE | 2021-04-07 22:57 | NUR ---
Pt withdrawn to his room this evening laying calmly in bed. Compliant with crushed medications. Can be short/ irritable at times. Pt currently sleeping.
[2021-04-08 05:37] VITALS: BP 149/86
[2021-04-08] MEDS: DIVALPROEX 125 MG CAP.SPRINK PO SCH (08:28)
[2021-04-08] MEDS: MEGESTROL 400 MG/10 ML ORAL.SUSP. PO SCH ×2 (08:28→12:17)
[2021-04-08] MEDS: buPROPion 100 MG TABLET. PO SCH (08:28)
[2021-04-08] MEDS: MULTIVITAMIN with MINERAL TABLET. PO SCH (08:28)
[2021-04-08] MEDS: CARVEDILOL 6.25 MG TABLET PO SCH ×2 (08:29→17:18)
[2021-04-08] MEDS: LOSARTAN 50 MG TABLET. PO SCH (08:29)
[2021-04-08] MEDS: CHOLECALCIFEROL (VITAMIN D3) 1,000 UNIT TABLET PO SCH (08:29)
[2021-04-08] MEDS: ASPIRIN CHEWABLE 81 MG TABLET. PO SCH (08:29)
[2021-04-08] MEDS: TICAGRELOR 90 MG TABLET. PO SCH ×2 (08:29→20:34)
[2021-04-08] MEDS: INSULIN LISPRO 300 UNITS/3 ML VIAL. SQ SCH ×3 (08:37→17:19)
[2021-04-08] MEDS: INSULIN GLARGINE SYRINGE. SQ SCH (10:16)
--- NOTE | 2021-04-08 11:26 | NUR ---
Nsg Note; Santosh has been withdrawn and irritable this am. He was resistant to taking his meds but ultimately took them. He wanted to go back to bed immediately after breakfast but was told he had to stay up to build up his strength. He then asked multiple staff members to put him to bed and became irritated when we all said the same thing. He did not respond or engage in conversation with me after several attempts.
[2021-04-08] MEDS: buPROPion 75 MG TABLET PO SCH (12:19)
[2021-04-08 15:19] VITALS: BP 108/65
[2021-04-08] MEDS: ATORVASTATIN CALCIUM 20 MG TABLET PO SCH (20:34)
[2021-04-08] MEDS: MIRTAZAPINE 15 MG TABLET PO SCH (20:34)
--- NOTE | 2021-04-08 20:48 | PDOC ---
Exam Note: Jaerth Note: Please also refer to the separate dictated note~for this date of service dictated separately.~Patient seen individually. Discussed the patient with Nursing staff reviewed the chart.~Reviewed interim history and current functioning. Reviewed vital signs,~Labs/ Radiology~and current medications noted below. Continue current treatment with the changes noted in the dictated addendum note Assessment: Vital Signs/I&O: Vital Signs Date Time Temp Pulse Resp B/P (MAP) Pulse Ox O2 Delivery O2 Flow Rate FiO2 04/08/21 17:18 80 108/65 04/08/21 15:19 98.1 18 94 Room Air I & O 04/07/21 04/07/21 04/08/21 15:00 23:00 07:00 Intake Total 480 ml 600 ml Balance 480 ml 600 ml Labs: Laboratory Tests Test 04/08/21 07:25 04/08/21 11:30 04/08/21 16:46 04/08/21 19:21 Glucose (Fingerstick) 160 mg/dL (70-99) H 174 mg/dL (70-99) H 95 mg/dL (70-99) 115 mg/dL (70-99) H Current Medications: Meds: Laboratory Tests Test 04/08/21 07:25 04/08/21 11:30 04/08/21 16:46 04/08/21 19:21 Glucose (Fingerstick) 160 mg/dL 174 mg/dL 95 mg/dL 115 mg/dL Current Medications Medications (Trade) Dose Ordered Sig/Komal Route PRN Reason Start Time Stop Time Status Last Admin Dose Admin Acetaminophen (Tylenol) 650 mg PRN Q6HRS PRN PO MILD PAIN / TEMP > 100.3'F 03/28/21 15:00 03/29/21 16:01 DC Multi-Ingredient Ointment (Analgesic [place]) 1 peggy PRN QID PRN TP MUSCLE PAIN 03/28/21 15:00 Al Hydroxide/Mg Hydroxide (Mylanta Plus Xs) 15 ml PRN AFTMEALHC PRN PO DYSPEPSIA 03/28/21 15:00 Magnesium Hydroxide (Milk Of Magnesia) 2,400 mg PRN QHS PRN PO 2nd choice CONSTIPATION 03/28/21 15:00 Acetaminophen (Tylenol) 650 mg TID PO 03/28/21 21:00 03/29/21 16:01 DC 03/29/21 08:59 Aspirin (Aspirin Chewable) 81 mg DAILY PO 03/29/21 09:00 04/08/21 08:29 Carvedilol (Coreg) 6.25 mg BIDWMEALS PO 03/28/21 17:00 04/08/21 17:18 Vitamin D (Vitamin D3) 2,000 unit DAILY PO 03/29/21 09:00 04/08/21 08:29 Cyanocobalamin (Vitamin B-12) 1,000 mcg QMONTH IM 04/09/21 09:00 Divalproex Sodium (Depakote Sprinkles) 250 mg BID PO 03/28/21 21:00 04/08/21 19:46 DC 04/08/21 08:28 Fluticasone Propionate (Flonase) 2 spray DAILY NS 03/29/21 09:00 03/29/21 16:01 DC 03/29/21 08:58 Hydralazine HCl (Apresoline) 10 mg PRN Q8HRS PRN PO HYPERTENSION 03/28/21 16:00 Losartan Potassium (Cozaar) 50 mg DAILY PO 03/29/21 09:00 04/06/21 16:31 DC 04/06/21 09:23 Megestrol Acetate (Megace Oral Susp) 400 mg BIDWBKFT/URIEL PO 03/29/21 08:00 04/08/21 12:17 Mirtazapine (Remeron) 15 mg QHS PO 03/28/21 21:00 04/08/21 20:34 Polyethylene Glycol (miraLAX) 17 gm PRN Q12HR PRN PO 1st choice CONSTIPATION 03/28/21 16:00 04/07/21 08:29 Sennosides (Senna) 8.6 mg PRN Q12HR PRN PO 3rd choice CONSTIPATION 03/28/21 16:00 04/07/21 08:27 Ticagrelor (Brilinta) 90 mg BID PO 03/28/21 21:00 04/08/21 20:34 Atorvastatin Calcium (Lipitor) 40 mg QHS PO 03/28/21 21:00 04/08/21 20:34 Insulin Human Lispro (HumaLOG) 10 units DAILYWSUP PRN SQ IF PT EATS >/= 25% OF NGOZI MEAL 03/28/21 16:15 03/29/21 11:54 DC Insulin Human Lispro (HumaLOG) 13 units BIDACBL SQ 03/29/21 07:30 03/29/21 11:56 DC Insulin Glargine (Lantus Syringe) 35 unit DAILYWBKFT SQ 03/29/21 08:00 04/08/21 10:16 Multivitamins/ Calcium (Thera-M Plus) 1 tab DAILY PO 03/29/21 09:00 04/08/21 08:28 Ondansetron HCl (Zofran Odt) 4 mg PRN Q12HR PRN PO NAUSEA/VOMITING 03/28/21 16:15 Insulin Human Lispro (HumaLOG) 10 units DAILYWSUP SQ 03/29/21 17:00 04/07/21 17:22 Insulin Human Lispro (HumaLOG) 13 units BIDWBKFT/URIEL SQ 03/29/21 12:00 04/08/21 12:21 Acetaminophen (Tylenol) 650 mg PRN TID PRN PO MILD PAIN / TEMP > 100.3'F 03/29/21 16:00 Fluticasone Propionate (Flonase) 2 spray PRN DAILY PRN NS ALLERGIES 03/29/21 16:00 Bupropion HCl (Wellbutrin Xl) 150 mg DAILY PO 03/30/21 09:00 03/30/21 20:20 DC Bupropion HCl (Wellbutrin Xl) 300 mg DAILY PO 04/02/21 09:00 03/30/21 20:20 DC Bupropion HCl (Wellbutrin) 75 mg 0900,1200 PO 03/31/21 09:00 04/02/21 14:00 DC 04/02/21 12:37 Bupropion HCl (Wellbutrin) 150 mg 0900 PO 04/02/21 09:00 04/01/21 17:59 DC Bupropion HCl (Wellbutrin) 75 mg NOON PO 04/03/21 12:00 04/05/21 21:00 DC 04/05/21 12:09 Bupropion HCl (Wellbutrin) 150 mg 0900 PO 04/03/21 09:00 04/07/21 09:01 DC 04/07/21 08:27 Bupropion HCl (Wellbutrin Xl) 150 mg 1200 PO 04/06/21 12:00 04/07/21 06:27 DC 04/06/21 12:08 Losartan Potassium (Cozaar) 100 mg DAILY PO 04/06/21 16:30 04/08/21 08:29 Bupropion HCl (Wellbutrin) 300 mg DAILY PO 04/08/21 09:00 04/08/21 08:28 Bupropion HCl (Wellbutrin) 150 mg DAILY@1200 PO 04/07/21 12:00 04/08/21 12:19 Current Medications Medications (Trade) Dose Ordered Sig/Komal Route PRN Reason Start Time Stop Time Status Last Admin Dose Admin Bupropion HCl (Wellbutrin) 300 mg DAILY PO 04/08/21 09:00 04/08/21 08:28 I have reviewed the current psychotropics carefully including drug interactions. Risk benefit ratio favors no change other than as noted in my dictated progress note. Diagnosis: Problems: (1) Major depressive disorder, recurrent, severe with psychotic features (2) Mild cognitive impairment (3) Anxiety disorder, unspecified (4) Impulse control disorder, unspecified FREDDY SHEARER MD Apr 08, 2021 20:47
--- NOTE | 2021-04-08 22:29 | NUR ---
Pt located in his room this evening laying down in bed. Pt compliant with crushed medications. Pt will answer yes/no questions but does not expand on answers. Pt currently sleeping in bed.
[2021-04-09 06:07] VITALS: BP 170/80
--- NOTE | 2021-04-09 07:03 | PDOC ---
Exam Note: Jareth Note: This note is a late entry for 04/07/2021 covers elements not covered in my initial note. Subjective: The patient was reviewed at treatment team meeting individually in the morning on 04/07/2021 with Natalie Rashid, Bina Rasmussen, and Janee Nielsen (social staff worker), Alysia, activity therapy and Dorcas JIANG, discussed and reviewed the chart. The patient slept 8-1/4 hours previous night. His daughter Lorna attended the treatment team meeting. We had lengthy discussion about the patients diagnoses, treatment, current medications. Lorna expressed concerns that the patient hopefully will be able to stay here for an extended period of time till he is improved so that he does not have recurrent symptoms post return to [facility]. We discussed how we used inpatient hospitalization for acute stabilization and then follow-up with outpatient treatment. Appetite is 60%. Also discussed with Dorcas JIANG in the evening. Patient tried to transfe r himself once and is a fall risk. He still has poor motivation and Lorna expressed much concerns about this. He was pleased to hear that his daughter was involved with this. He complained of being tired. Review of Systems: No CV, , pulmonary, eye, ENT system symptoms on review. Ambulation impaired with walker. Mental Status Exam: The patient is oriented to himself and situation. Speech is coherent. Often response is monosyllabic, low in volume. Abstraction fair. Computation impaired. Language function intact. Mood and affect withdrawn. Laboratory Data: Reviewed. Impression: Major depressive disorder, recurrent, severe. Mild cognitive impairment. Anxiety disorder unspecified. Impulse control disorder unspecified. Plan: Continue current psychotropics. Assessment: Vital Signs/I&O: Vital Signs Date Time Temp Pulse Resp B/P (MAP) Pulse Ox O2 Delivery O2 Flow Rate FiO2 04/09/21 06:07 98.3 84 22 170/80 (110) 99 04/08/21 15:19 Room Air I & O 04/08/21 04/08/21 04/09/21 15:00 23:00 07:00 Intake Total 360 ml 120 ml Balance 360 ml 120 ml Labs: Laboratory Tests Test 04/08/21 07:25 04/08/21 11:30 04/08/21 16:46 04/08/21 19:21 Glucose (Fingerstick) 160 mg/dL (70-99) H 174 mg/dL (70-99) H 95 mg/dL (70-99) 115 mg/dL (70-99) H Current Medications: Meds: Laboratory Tests Test 04/08/21 07:25 04/08/21 11:30 04/08/21 16:46 04/08/21 19:21 Glucose (Fingerstick) 160 mg/dL 174 mg/dL 95 mg/dL 115 mg/dL Current Medications Medications (Trade) Dose Ordered Sig/Komal Route PRN Reason Start Time Stop Time Status Last Admin Dose Admin Acetaminophen (Tylenol) 650 mg PRN Q6HRS PRN PO MILD PAIN / TEMP > 100.3'F 03/28/21 15:00 03/29/21 16:01 DC Multi-Ingredient Ointment (Analgesic [place]) 1 peggy PRN QID PRN TP MUSCLE PAIN 03/28/21 15:00 Al Hydroxide/Mg Hydroxide (Mylanta Plus Xs) 15 ml PRN AFTMEALHC PRN PO DYSPEPSIA 03/28/21 15:00 Magnesium Hydroxide (Milk Of Magnesia) 2,400 mg PRN QHS PRN PO 2nd choice CONSTIPATION 03/28/21 15:00 Acetaminophen (Tylenol) 650 mg TID PO 03/28/21 21:00 03/29/21 16:01 DC 03/29/21 08:59 Aspirin (Aspirin Chewable) 81 mg DAILY PO 03/29/21 09:00 04/08/21 08:29 Carvedilol (Coreg) 6.25 mg BIDWMEALS PO 03/28/21 17:00 04/08/21 17:18 Vitamin D (Vitamin D3) 2,000 unit DAILY PO 03/29/21 09:00 04/08/21 08:29 Cyanocobalamin (Vitamin B-12) 1,000 mcg QMONTH IM 04/09/21 09:00 Divalproex Sodium (Depakote Sprinkles) 250 mg BID PO 03/28/21 21:00 04/08/21 19:46 DC 04/08/21 08:28 Fluticasone Propionate (Flonase) 2 spray DAILY NS 03/29/21 09:00 03/29/21 16:01 DC 03/29/21 08:58 Hydralazine HCl (Apresoline) 10 mg PRN Q8HRS PRN PO HYPERTENSION 03/28/21 16:00 Losartan Potassium (Cozaar) 50 mg DAILY PO 03/29/21 09:00 04/06/21 16:31 DC 04/06/21 09:23 Megestrol Acetate (Megace Oral Susp) 400 mg BIDWBKFT/URIEL PO 03/29/21 08:00 04/08/21 12:17 Mirtazapine (Remeron) 15 mg QHS PO 03/28/21 21:00 04/08/21 20:34 Polyethylene Glycol (miraLAX) 17 gm PRN Q12HR PRN PO 1st choice CONSTIPATION 03/28/21 16:00 04/07/21 08:29 Sennosides (Senna) 8.6 mg PRN Q12HR PRN PO 3rd choice CONSTIPATION 03/28/21 16:00 04/07/21 08:27 Ticagrelor (Brilinta) 90 mg BID PO 03/28/21 21:00 04/08/21 20:34 Atorvastatin Calcium (Lipitor) 40 mg QHS PO 03/28/21 21:00 04/08/21 20:34 Insulin Human Lispro (HumaLOG) 10 units DAILYWSUP PRN SQ IF PT EATS >/= 25% OF NGOZI MEAL 03/28/21 16:15 03/29/21 11:54 DC Insulin Human Lispro (HumaLOG) 13 units BIDACBL SQ 03/29/21 07:30 03/29/21 11:56 DC Insulin Glargine (Lantus Syringe) 35 unit DAILYWBKFT SQ 03/29/21 08:00 04/08/21 10:16 Multivitamins/ Calcium (Thera-M Plus) 1 tab DAILY PO 03/29/21 09:00 04/08/21 08:28 Ondansetron HCl (Zofran Odt) 4 mg PRN Q12HR PRN PO NAUSEA/VOMITING 03/28/21 16:15 Insulin Human Lispro (HumaLOG) 10 units DAILYWSUP SQ 03/29/21 17:00 04/07/21 17:22 Insulin Human Lispro (HumaLOG) 13 units BIDWBKFT/URIEL SQ 03/29/21 12:00 04/08/21 12:21 Acetaminophen (Tylenol) 650 mg PRN TID PRN PO MILD PAIN / TEMP > 100.3'F 03/29/21 16:00 Fluticasone Propionate (Flonase) 2 spray PRN DAILY PRN NS ALLERGIES 03/29/21 16:00 Bupropion HCl (Wellbutrin Xl) 150 mg DAILY PO 03/30/21 09:00 03/30/21 20:20 DC Bupropion HCl (Wellbutrin Xl) 300 mg DAILY PO 04/02/21 09:00 03/30/21 20:20 DC Bupropion HCl (Wellbutrin) 75 mg 0900,1200 PO 03/31/21 09:00 04/02/21 14:00 DC 04/02/21 12:37 Bupropion HCl (Wellbutrin) 150 mg 0900 PO 04/02/21 09:00 04/01/21 17:59 DC Bupropion HCl (Wellbutrin) 75 mg NOON PO 04/03/21 12:00 04/05/21 21:00 DC 04/05/21 12:09 Bupropion HCl (Wellbutrin) 150 mg 0900 PO 04/03/21 09:00 04/07/21 09:01 DC 04/07/21 08:27 Bupropion HCl (Wellbutrin Xl) 150 mg 1200 PO 04/06/21 12:00 04/07/21 06:27 DC 04/06/21 12:08 Losartan Potassium (Cozaar) 100 mg DAILY PO 04/06/21 16:30 04/08/21 08:29 Bupropion HCl (Wellbutrin) 300 mg DAILY PO 04/08/21 09:00 04/08/21 08:28 Bupropion HCl (Wellbutrin) 150 mg DAILY@1200 PO 04/07/21 12:00 04/08/21 12:19 Current Medications Medications (Trade) Dose Ordered Sig/Komal Route PRN Reason Start Time Stop Time Status Last Admin Dose Admin Bupropion HCl (Wellbutrin) 300 mg DAILY PO 04/08/21 09:00 04/08/21 08:28 I have reviewed the current psychotropics carefully including drug interactions. Risk benefit ratio favors no change other than as noted in my dictated progress note. Diagnosis: Problems: (1) Major depressive disorder, recurrent, severe with psychotic features (2) Mild cognitive impairment (3) Anxiety disorder, unspecified (4) Impulse control disorder, unspecified FREDDY SHEARER MD Apr 09, 2021 07:03
--- NOTE | 2021-04-09 07:25 | PDOC ---
Exam Note: Jareth Note: This note is a late entry for 04/08/2021 covers elements not covered in my initial note. Subjective: The patient was seen individually in the evening of 04/08/2021 with Trista JIANG, discussed and reviewed the chart. The patient slept 8 hours previous night. He is withdrawn, somewhat flat, did not attend groups. There is no history of seizures and he is on Depakote 250 mg b.i.d. I feel much of his irritability was consequent to his mood symptoms and he is on Wellbutrin for this together with Remeron. We will stop the Depakote since it could be causing sedation. Review of Systems: No CV, , pulmonary, eye, ENT system symptoms on review. Ambulation impaired with walker. Mental Status Exam: The patient is oriented to himself and situation. Speech is coherent. Often response is monosyllabic, low in volume. Abstraction fair. Computation impaired. Language function intact. Mood and affect withdrawn. Laboratory Data: Reviewed. Impression: Major depressive disorder, recurrent, severe. Mild cognitive impairment. Anxiety disorder unspecified. Impulse control disorder unspecified. Plan: Continue current psychotropics. Assessment: Vital Signs/I&O: Vital Signs Date Time Temp Pulse Resp B/P (MAP) Pulse Ox O2 Delivery O2 Flow Rate FiO2 04/09/21 06:07 98.3 84 22 170/80 (110) 99 04/08/21 15:19 Room Air I & O 04/08/21 04/08/21 04/09/21 15:00 23:00 07:00 Intake Total 360 ml 120 ml Balance 360 ml 120 ml Labs: Laboratory Tests Test 04/08/21 07:25 04/08/21 11:30 04/08/21 16:46 04/08/21 19:21 Glucose (Fingerstick) 160 mg/dL (70-99) H 174 mg/dL (70-99) H 95 mg/dL (70-99) 115 mg/dL (70-99) H Test 04/09/21 07:16 Glucose (Fingerstick) 124 mg/dL (70-99) H Current Medications: Meds: Laboratory Tests Test 04/08/21 11:30 04/08/21 16:46 04/08/21 19:21 04/09/21 07:16 Glucose (Fingerstick) 174 mg/dL 95 mg/dL 115 mg/dL 124 mg/dL Current Medications Medications (Trade) Dose Ordered Sig/Komal Route PRN Reason Start Time Stop Time Status Last Admin Dose Admin Acetaminophen (Tylenol) 650 mg PRN Q6HRS PRN PO MILD PAIN / TEMP > 100.3'F 03/28/21 15:00 03/29/21 16:01 DC Multi-Ingredient Ointment (Analgesic [place]) 1 peggy PRN QID PRN TP MUSCLE PAIN 03/28/21 15:00 Al Hydroxide/Mg Hydroxide (Mylanta Plus Xs) 15 ml PRN AFTMEALHC PRN PO DYSPEPSIA 03/28/21 15:00 Magnesium Hydroxide (Milk Of Magnesia) 2,400 mg PRN QHS PRN PO 2nd choice CONSTIPATION 03/28/21 15:00 Acetaminophen (Tylenol) 650 mg TID PO 03/28/21 21:00 03/29/21 16:01 DC 03/29/21 08:59 Aspirin (Aspirin Chewable) 81 mg DAILY PO 03/29/21 09:00 04/08/21 08:29 Carvedilol (Coreg) 6.25 mg BIDWMEALS PO 03/28/21 17:00 04/08/21 17:18 Vitamin D (Vitamin D3) 2,000 unit DAILY PO 03/29/21 09:00 04/08/21 08:29 Cyanocobalamin (Vitamin B-12) 1,000 mcg QMONTH IM 04/09/21 09:00 Divalproex Sodium (Depakote Sprinkles) 250 mg BID PO 03/28/21 21:00 04/08/21 19:46 DC 04/08/21 08:28 Fluticasone Propionate (Flonase) 2 spray DAILY NS 03/29/21 09:00 03/29/21 16:01 DC 03/29/21 08:58 Hydralazine HCl (Apresoline) 10 mg PRN Q8HRS PRN PO HYPERTENSION 03/28/21 16:00 Losartan Potassium (Cozaar) 50 mg DAILY PO 03/29/21 09:00 04/06/21 16:31 DC 04/06/21 09:23 Megestrol Acetate (Megace Oral Susp) 400 mg BIDWBKFT/URIEL PO 03/29/21 08:00 04/08/21 12:17 Mirtazapine (Remeron) 15 mg QHS PO 03/28/21 21:00 04/08/21 20:34 Polyethylene Glycol (miraLAX) 17 gm PRN Q12HR PRN PO 1st choice CONSTIPATION 03/28/21 16:00 04/07/21 08:29 Sennosides (Senna) 8.6 mg PRN Q12HR PRN PO 3rd choice CONSTIPATION 03/28/21 16:00 04/07/21 08:27 Ticagrelor (Brilinta) 90 mg BID PO 03/28/21 21:00 04/08/21 20:34 Atorvastatin Calcium (Lipitor) 40 mg QHS PO 03/28/21 21:00 04/08/21 20:34 Insulin Human Lispro (HumaLOG) 10 units DAILYWSUP PRN SQ IF PT EATS >/= 25% OF NGOZI MEAL 03/28/21 16:15 03/29/21 11:54 DC Insulin Human Lispro (HumaLOG) 13 units BIDACBL SQ 03/29/21 07:30 03/29/21 11:56 DC Insulin Glargine (Lantus Syringe) 35 unit DAILYWBKFT SQ 03/29/21 08:00 04/08/21 10:16 Multivitamins/ Calcium (Thera-M Plus) 1 tab DAILY PO 03/29/21 09:00 04/08/21 08:28 Ondansetron HCl (Zofran Odt) 4 mg PRN Q12HR PRN PO NAUSEA/VOMITING 03/28/21 16:15 Insulin Human Lispro (HumaLOG) 10 units DAILYWSUP SQ 03/29/21 17:00 04/07/21 17:22 Insulin Human Lispro (HumaLOG) 13 units BIDWBKFT/URIEL SQ 03/29/21 12:00 04/08/21 12:21 Acetaminophen (Tylenol) 650 mg PRN TID PRN PO MILD PAIN / TEMP > 100.3'F 03/29/21 16:00 Fluticasone Propionate (Flonase) 2 spray PRN DAILY PRN NS ALLERGIES 03/29/21 16:00 Bupropion HCl (Wellbutrin Xl) 150 mg DAILY PO 03/30/21 09:00 03/30/21 20:20 DC Bupropion HCl (Wellbutrin Xl) 300 mg DAILY PO 04/02/21 09:00 03/30/21 20:20 DC Bupropion HCl (Wellbutrin) 75 mg 0900,1200 PO 03/31/21 09:00 04/02/21 14:00 DC 04/02/21 12:37 Bupropion HCl (Wellbutrin) 150 mg 0900 PO 04/02/21 09:00 04/01/21 17:59 DC Bupropion HCl (Wellbutrin) 75 mg NOON PO 04/03/21 12:00 04/05/21 21:00 DC 04/05/21 12:09 Bupropion HCl (Wellbutrin) 150 mg 0900 PO 04/03/21 09:00 04/07/21 09:01 DC 04/07/21 08:27 Bupropion HCl (Wellbutrin Xl) 150 mg 1200 PO 04/06/21 12:00 04/07/21 06:27 DC 04/06/21 12:08 Losartan Potassium (Cozaar) 100 mg DAILY PO 04/06/21 16:30 04/08/21 08:29 Bupropion HCl (Wellbutrin) 300 mg DAILY PO 04/08/21 09:00 04/08/21 08:28 Bupropion HCl (Wellbutrin) 150 mg DAILY@1200 PO 04/07/21 12:00 04/08/21 12:19 Current Medications Medications (Trade) Dose Ordered Sig/Komal Route PRN Reason Start Time Stop Time Status Last Admin Dose Admin Bupropion HCl (Wellbutrin) 300 mg DAILY PO 04/08/21 09:00 04/08/21 08:28 I have reviewed the current psychotropics carefully including drug interactions. Risk benefit ratio favors no change other than as noted in my dictated progress note. Diagnosis: Problems: (1) Major depressive disorder, recurrent, severe with psychotic features (2) Mild cognitive impairment (3) Anxiety disorder, unspecified (4) Impulse control disorder, unspecified FREDDY SHEARER MD Apr 09, 2021 07:25
[2021-04-09] MEDS: MEGESTROL 400 MG/10 ML ORAL.SUSP. PO SCH ×2 (08:24→12:23)
[2021-04-09] MEDS: MULTIVITAMIN with MINERAL TABLET. PO SCH (08:25)
[2021-04-09] MEDS: CHOLECALCIFEROL (VITAMIN D3) 1,000 UNIT TABLET PO SCH (08:25)
[2021-04-09] MEDS: ASPIRIN CHEWABLE 81 MG TABLET. PO SCH (08:25)
[2021-04-09] MEDS: TICAGRELOR 90 MG TABLET. PO SCH ×2 (08:26→20:12)
[2021-04-09] MEDS: buPROPion 100 MG TABLET. PO SCH (08:26)
[2021-04-09] MEDS: LOSARTAN 50 MG TABLET. PO SCH (08:26)
[2021-04-09] MEDS: CARVEDILOL 6.25 MG TABLET PO SCH ×2 (08:26→17:34)
[2021-04-09] MEDS: INSULIN LISPRO 300 UNITS/3 ML VIAL. SQ SCH ×3 (08:29→17:36)
[2021-04-09] MEDS ORDERED: CYANOCOBALAMIN (VITAMIN B-12) 1,000 MCG/ML VIAL. IM SCH (09:00)
[2021-04-09] MEDS: INSULIN GLARGINE SYRINGE. SQ SCH (09:42)
[2021-04-09] MEDS: buPROPion 75 MG TABLET PO SCH (12:23)
[2021-04-09 15:40] VITALS: BP 147/85
--- NOTE | 2021-04-09 15:44 | NUR ---
Nursing note: Patient in dinning room for morning medication and assessment. He is compliant with taking medications crushed/floated in pudding. He is A/O X 3, unable to report situation. Patient can be rude, demanding, confused, withdrawn and isolative. He participated in group this afternoon. Patient denies having any pain/discomfort at this time. He propels self through unit and bedroom in w/c. He is currently laying in bed with eyes closed. Will continue to monitor.
[2021-04-09] MEDS: ATORVASTATIN CALCIUM 20 MG TABLET PO SCH (20:11)
[2021-04-09] MEDS: MIRTAZAPINE 15 MG TABLET PO SCH (20:12)
--- NOTE | 2021-04-09 21:04 | PDOC ---
Exam Note: Jareth Note: Please also refer to the separate dictated note~for this date of service dictated separately.~Patient seen individually. Discussed the patient with Nursing staff reviewed the chart.~Reviewed interim history and current functioning. Reviewed vital signs,~Labs/ Radiology~and current medications noted below. Continue current treatment with the changes noted in the dictated addendum note Assessment: Vital Signs/I&O: Vital Signs Date Time Temp Pulse Resp B/P (MAP) Pulse Ox O2 Delivery O2 Flow Rate FiO2 04/09/21 17:34 91 147/85 04/09/21 15:40 97.9 20 96 04/08/21 15:19 Room Air I & O 04/08/21 04/08/21 04/09/21 15:00 23:00 07:00 Intake Total 360 ml 120 ml Balance 360 ml 120 ml Labs: Laboratory Tests Test 04/09/21 06:00 04/09/21 07:16 04/09/21 11:45 04/09/21 16:46 SARS-CoV-2 (PCR) Not detected (NOT DETECTD) Glucose (Fingerstick) 124 mg/dL (70-99) H 81 mg/dL (70-99) 201 mg/dL (70-99) H Test 04/09/21 19:04 Glucose (Fingerstick) 124 mg/dL (70-99) H Current Medications: Meds: Laboratory Tests Test 04/09/21 06:00 04/09/21 07:16 04/09/21 11:45 04/09/21 16:46 Coronavirus (COVID-19)(PCR) Not detected Glucose (Fingerstick) 124 mg/dL 81 mg/dL 201 mg/dL Test 04/09/21 19:04 Glucose (Fingerstick) 124 mg/dL Current Medications Medications (Trade) Dose Ordered Sig/Komal Route PRN Reason Start Time Stop Time Status Last Admin Dose Admin Acetaminophen (Tylenol) 650 mg PRN Q6HRS PRN PO MILD PAIN / TEMP > 100.3'F 03/28/21 15:00 03/29/21 16:01 DC Multi-Ingredient Ointment (Analgesic [place]) 1 peggy PRN QID PRN TP MUSCLE PAIN 03/28/21 15:00 Al Hydroxide/Mg Hydroxide (Mylanta Plus Xs) 15 ml PRN AFTMEALHC PRN PO DYSPEPSIA 03/28/21 15:00 Magnesium Hydroxide (Milk Of Magnesia) 2,400 mg PRN QHS PRN PO 2nd choice CONSTIPATION 03/28/21 15:00 Acetaminophen (Tylenol) 650 mg TID PO 03/28/21 21:00 03/29/21 16:01 DC 03/29/21 08:59 Aspirin (Aspirin Chewable) 81 mg DAILY PO 03/29/21 09:00 04/09/21 08:25 Carvedilol (Coreg) 6.25 mg BIDWMEALS PO 03/28/21 17:00 04/09/21 17:34 Vitamin D (Vitamin D3) 2,000 unit DAILY PO 03/29/21 09:00 04/09/21 08:25 Cyanocobalamin (Vitamin B-12) 1,000 mcg QMONTH IM 04/09/21 09:00 04/09/21 09:43 Divalproex Sodium (Depakote Sprinkles) 250 mg BID PO 03/28/21 21:00 04/08/21 19:46 DC 04/08/21 08:28 Fluticasone Propionate (Flonase) 2 spray DAILY NS 03/29/21 09:00 03/29/21 16:01 DC 03/29/21 08:58 Hydralazine HCl (Apresoline) 10 mg PRN Q8HRS PRN PO HYPERTENSION 03/28/21 16:00 Losartan Potassium (Cozaar) 50 mg DAILY PO 03/29/21 09:00 04/06/21 16:31 DC 04/06/21 09:23 Megestrol Acetate (Megace Oral Susp) 400 mg BIDWBKFT/URIEL PO 03/29/21 08:00 04/09/21 12:23 Mirtazapine (Remeron) 15 mg QHS PO 03/28/21 21:00 04/09/21 20:12 Polyethylene Glycol (miraLAX) 17 gm PRN Q12HR PRN PO 1st choice CONSTIPATION 03/28/21 16:00 04/07/21 08:29 Sennosides (Senna) 8.6 mg PRN Q12HR PRN PO 3rd choice CONSTIPATION 03/28/21 16:00 04/07/21 08:27 Ticagrelor (Brilinta) 90 mg BID PO 03/28/21 21:00 04/09/21 20:12 Atorvastatin Calcium (Lipitor) 40 mg QHS PO 03/28/21 21:00 04/09/21 20:11 Insulin Human Lispro (HumaLOG) 10 units DAILYWSUP PRN SQ IF PT EATS >/= 25% OF NGOZI MEAL 03/28/21 16:15 03/29/21 11:54 DC Insulin Human Lispro (HumaLOG) 13 units BIDACBL SQ 03/29/21 07:30 03/29/21 11:56 DC Insulin Glargine (Lantus Syringe) 35 unit DAILYWBKFT SQ 03/29/21 08:00 04/09/21 09:42 Multivitamins/ Calcium (Thera-M Plus) 1 tab DAILY PO 03/29/21 09:00 04/09/21 08:25 Ondansetron HCl (Zofran Odt) 4 mg PRN Q12HR PRN PO NAUSEA/VOMITING 03/28/21 16:15 Insulin Human Lispro (HumaLOG) 10 units DAILYWSUP SQ 03/29/21 17:00 04/09/21 17:36 Insulin Human Lispro (HumaLOG) 13 units BIDWBKFT/URIEL SQ 03/29/21 12:00 04/09/21 08:29 Acetaminophen (Tylenol) 650 mg PRN TID PRN PO MILD PAIN / TEMP > 100.3'F 03/29/21 16:00 Fluticasone Propionate (Flonase) 2 spray PRN DAILY PRN NS ALLERGIES 03/29/21 16:00 Bupropion HCl (Wellbutrin Xl) 150 mg DAILY PO 03/30/21 09:00 03/30/21 20:20 DC Bupropion HCl (Wellbutrin Xl) 300 mg DAILY PO 04/02/21 09:00 03/30/21 20:20 DC Bupropion HCl (Wellbutrin) 75 mg 0900,1200 PO 03/31/21 09:00 04/02/21 14:00 DC 04/02/21 12:37 Bupropion HCl (Wellbutrin) 150 mg 0900 PO 04/02/21 09:00 04/01/21 17:59 DC Bupropion HCl (Wellbutrin) 75 mg NOON PO 04/03/21 12:00 04/05/21 21:00 DC 04/05/21 12:09 Bupropion HCl (Wellbutrin) 150 mg 0900 PO 04/03/21 09:00 04/07/21 09:01 DC 04/07/21 08:27 Bupropion HCl (Wellbutrin Xl) 150 mg 1200 PO 04/06/21 12:00 04/07/21 06:27 DC 04/06/21 12:08 Losartan Potassium (Cozaar) 100 mg DAILY PO 04/06/21 16:30 04/09/21 08:26 Bupropion HCl (Wellbutrin) 300 mg DAILY PO 04/08/21 09:00 04/09/21 08:26 Bupropion HCl (Wellbutrin) 150 mg DAILY@1200 PO 04/07/21 12:00 04/09/21 12:23 Aripiprazole (Abilify) 2 mg DAILY PO 04/10/21 09:00 Current Medications Medications (Trade) Dose Ordered Sig/Komal Route PRN Reason Start Time Stop Time Status Last Admin Dose Admin Cyanocobalamin (Vitamin B-12) 1,000 mcg QMONTH IM 04/09/21 09:00 04/09/21 09:43 I have reviewed the current psychotropics carefully including drug interactions. Risk benefit ratio favors no change other than as noted in my dictated progress note. Diagnosis: Problems: (1) Major depressive disorder, recurrent, severe with psychotic features (2) Mild cognitive impairment (3) Anxiety disorder, unspecified (4) Impulse control disorder, unspecified FREDDY SHEARER MD Apr 09, 2021 21:04
--- NOTE | 2021-04-09 22:59 | NUR ---
Patient is located in his room on assumption of care, awake in bed. He is withdrawn, depressed. He was compliant with assessments and medications crushed in chocolate pudding. Cooperative with HS cares. Patient denies any SI thoughts at this time. He denies any pain or discomfort. Appears to be sleeping comfortably at present time. Will continue to monitor.
[2021-04-10 06:19] VITALS: BP 140/73
--- NOTE | 2021-04-10 07:18 | PDOC ---
Exam Note: Jareth Note: This note is a late entry for 04/09/2021 covers elements not covered in my initial note. Subjective: The patient was seen individually in the evening of 04/09/2021 with Dorcas JIANG, discussed and reviewed the chart. The patient slept 6-1/4 hours previous night. He has come out during the day today, went to the group room. Bina Rasmussen, social insurance administrator discussed with me earlier that patient was more interactive in groups as well. By the time I met with him in the evening, he was still somewhat withdrawn, depressed but better than the day before. Reportedly he had a conversation with his daughter earlier in the day as well over the phone. Review of Systems: No CV, , pulmonary, eye, ENT system symptoms on review. Ambulation impaired in wheelchair. Mental Status Exam: The patient is oriented to himself and situation. Speech is low in rate and rhythm, low in volume. Often response is monosyllabic. Abstraction fair. Computation impaired. Language function intact. Mood and affect withdrawn but improved. No suicidal ideation. Laboratory Data: Reviewed. Impression: Major depressive disorder, recurrent, severe. Mild cognitive impairment. Anxiety disorder unspecified. Impulse control disorder unspecified. Plan: Continue psychotropics from initial note. Augment the Wellbutrin with Abilify 2 mg a day. Maintain Remeron and Megace unchanged for now. Assessment: Vital Signs/I&O: Vital Signs Date Time Temp Pulse Resp B/P (MAP) Pulse Ox O2 Delivery O2 Flow Rate FiO2 04/10/21 06:19 97.1 78 16 140/73 (95) 99 04/08/21 15:19 Room Air I & O 04/09/21 04/09/21 04/10/21 15:00 23:00 07:00 Intake Total 720 ml 240 ml Balance 720 ml 240 ml Labs: Laboratory Tests Test 04/09/21 11:45 04/09/21 16:46 04/09/21 19:04 Glucose (Fingerstick) 81 mg/dL (70-99) 201 mg/dL (70-99) H 124 mg/dL (70-99) H Current Medications: Meds: Laboratory Tests Test 04/09/21 11:45 04/09/21 16:46 04/09/21 19:04 Glucose (Fingerstick) 81 mg/dL 201 mg/dL 124 mg/dL Current Medications Medications (Trade) Dose Ordered Sig/Komal Route PRN Reason Start Time Stop Time Status Last Admin Dose Admin Acetaminophen (Tylenol) 650 mg PRN Q6HRS PRN PO MILD PAIN / TEMP > 100.3'F 03/28/21 15:00 03/29/21 16:01 DC Multi-Ingredient Ointment (Analgesic [place]) 1 peggy PRN QID PRN TP MUSCLE PAIN 03/28/21 15:00 Al Hydroxide/Mg Hydroxide (Mylanta Plus Xs) 15 ml PRN AFTMEALHC PRN PO DYSPEPSIA 03/28/21 15:00 Magnesium Hydroxide (Milk Of Magnesia) 2,400 mg PRN QHS PRN PO 2nd choice CONSTIPATION 03/28/21 15:00 Acetaminophen (Tylenol) 650 mg TID PO 03/28/21 21:00 03/29/21 16:01 DC 03/29/21 08:59 Aspirin (Aspirin Chewable) 81 mg DAILY PO 03/29/21 09:00 04/09/21 08:25 Carvedilol (Coreg) 6.25 mg BIDWMEALS PO 03/28/21 17:00 04/09/21 17:34 Vitamin D (Vitamin D3) 2,000 unit DAILY PO 03/29/21 09:00 04/09/21 08:25 Cyanocobalamin (Vitamin B-12) 1,000 mcg QMONTH IM 04/09/21 09:00 04/09/21 09:43 Divalproex Sodium (Depakote Sprinkles) 250 mg BID PO 03/28/21 21:00 04/08/21 19:46 DC 04/08/21 08:28 Fluticasone Propionate (Flonase) 2 spray DAILY NS 03/29/21 09:00 03/29/21 16:01 DC 03/29/21 08:58 Hydralazine HCl (Apresoline) 10 mg PRN Q8HRS PRN PO HYPERTENSION 03/28/21 16:00 Losartan Potassium (Cozaar) 50 mg DAILY PO 03/29/21 09:00 04/06/21 16:31 DC 04/06/21 09:23 Megestrol Acetate (Megace Oral Susp) 400 mg BIDWBKFT/URIEL PO 03/29/21 08:00 04/09/21 12:23 Mirtazapine (Remeron) 15 mg QHS PO 03/28/21 21:00 04/09/21 20:12 Polyethylene Glycol (miraLAX) 17 gm PRN Q12HR PRN PO 1st choice CONSTIPATION 03/28/21 16:00 04/07/21 08:29 Sennosides (Senna) 8.6 mg PRN Q12HR PRN PO 3rd choice CONSTIPATION 03/28/21 16:00 04/07/21 08:27 Ticagrelor (Brilinta) 90 mg BID PO 03/28/21 21:00 04/09/21 20:12 Atorvastatin Calcium (Lipitor) 40 mg QHS PO 03/28/21 21:00 04/09/21 20:11 Insulin Human Lispro (HumaLOG) 10 units DAILYWSUP PRN SQ IF PT EATS >/= 25% OF NGOZI MEAL 03/28/21 16:15 03/29/21 11:54 DC Insulin Human Lispro (HumaLOG) 13 units BIDACBL SQ 03/29/21 07:30 03/29/21 11:56 DC Insulin Glargine (Lantus Syringe) 35 unit DAILYWBKFT SQ 03/29/21 08:00 04/09/21 09:42 Multivitamins/ Calcium (Thera-M Plus) 1 tab DAILY PO 03/29/21 09:00 04/09/21 08:25 Ondansetron HCl (Zofran Odt) 4 mg PRN Q12HR PRN PO NAUSEA/VOMITING 03/28/21 16:15 Insulin Human Lispro (HumaLOG) 10 units DAILYWSUP SQ 03/29/21 17:00 04/09/21 17:36 Insulin Human Lispro (HumaLOG) 13 units BIDWBKFT/URIEL SQ 03/29/21 12:00 04/09/21 08:29 Acetaminophen (Tylenol) 650 mg PRN TID PRN PO MILD PAIN / TEMP > 100.3'F 03/29/21 16:00 Fluticasone Propionate (Flonase) 2 spray PRN DAILY PRN NS ALLERGIES 03/29/21 16:00 Bupropion HCl (Wellbutrin Xl) 150 mg DAILY PO 03/30/21 09:00 03/30/21 20:20 DC Bupropion HCl (Wellbutrin Xl) 300 mg DAILY PO 04/02/21 09:00 03/30/21 20:20 DC Bupropion HCl (Wellbutrin) 75 mg 0900,1200 PO 03/31/21 09:00 04/02/21 14:00 DC 04/02/21 12:37 Bupropion HCl (Wellbutrin) 150 mg 0900 PO 04/02/21 09:00 04/01/21 17:59 DC Bupropion HCl (Wellbutrin) 75 mg NOON PO 04/03/21 12:00 04/05/21 21:00 DC 04/05/21 12:09 Bupropion HCl (Wellbutrin) 150 mg 0900 PO 04/03/21 09:00 04/07/21 09:01 DC 04/07/21 08:27 Bupropion HCl (Wellbutrin Xl) 150 mg 1200 PO 04/06/21 12:00 04/07/21 06:27 DC 04/06/21 12:08 Losartan Potassium (Cozaar) 100 mg DAILY PO 04/06/21 16:30 04/09/21 08:26 Bupropion HCl (Wellbutrin) 300 mg DAILY PO 04/08/21 09:00 04/09/21 08:26 Bupropion HCl (Wellbutrin) 150 mg DAILY@1200 PO 04/07/21 12:00 04/09/21 12:23 Aripiprazole (Abilify) 2 mg DAILY PO 04/10/21 09:00 Current Medications Medications (Trade) Dose Ordered Sig/Komal Route PRN Reason Start Time Stop Time Status Last Admin Dose Admin Cyanocobalamin (Vitamin B-12) 1,000 mcg QMONTH IM 04/09/21 09:00 04/09/21 09:43 I have reviewed the current psychotropics carefully including drug interactions. Risk benefit ratio favors no change other than as noted in my dictated progress note. Diagnosis: Problems: (1) Major depressive disorder, recurrent, severe with psychotic features (2) Mild cognitive impairment (3) Anxiety disorder, unspecified (4) Impulse control disorder, unspecified FREDDY SHEARER MD Apr 10, 2021 07:18
[2021-04-10] MEDS: buPROPion 100 MG TABLET. PO SCH (07:57)
[2021-04-10] MEDS: MULTIVITAMIN with MINERAL TABLET. PO SCH (07:58)
[2021-04-10] MEDS: ASPIRIN CHEWABLE 81 MG TABLET. PO SCH (07:58)
[2021-04-10] MEDS: CARVEDILOL 6.25 MG TABLET PO SCH ×2 (07:58→17:00)
[2021-04-10] MEDS: CHOLECALCIFEROL (VITAMIN D3) 1,000 UNIT TABLET PO SCH (07:58)
[2021-04-10] MEDS: LOSARTAN 50 MG TABLET. PO SCH (07:58)
[2021-04-10] MEDS: MEGESTROL 400 MG/10 ML ORAL.SUSP. PO SCH ×2 (07:59→12:08)
[2021-04-10] MEDS: TICAGRELOR 90 MG TABLET. PO SCH ×2 (08:00→19:37)
[2021-04-10] MEDS: INSULIN LISPRO 300 UNITS/3 ML VIAL. SQ SCH ×3 (08:00→17:00)
[2021-04-10] MEDS: INSULIN GLARGINE SYRINGE. SQ SCH (08:00)
[2021-04-10] MEDS: ARIPiprazole 2 MG TABLET PO SCH (08:00)
--- NOTE | 2021-04-10 09:28 | NUR ---
Pt was appropriate during breakfast; A&Ox3, denies SI/HI/VH/AH/delusions pain. He is compliant with whole medications. He remains flat and primarily withdrawn. He continues to want to spend all day in bed, however staff have been trying to encourage him to not engage in this behavior. While in his room pt became so insistent on being put back into bed that he was discovered by staff to be deliberately trying to slide out of w/c and onto floor. When asked, pt verbalized acknowledgement of the deliberate nature of his behavior. Pt has been known to deliberately slide out of w/c and onto floor during previous shifts. Pt is now sitting in w/c with staff for safety. Plan of care continues, will pass to next shift.
[2021-04-10] MEDS: buPROPion 75 MG TABLET PO SCH (12:08)
--- NOTE | 2021-04-10 15:41 | NUR ---
CESAR has spent 1:1 time with Santosh on 04/07, 04/09, and this date. Santosh accepted invite to recreational therapy group on 04/09/21, stayed for the entirety of music activity and was engaged in the activity. Santosh requested to use the phone to call Adriana and CESAR Rothman retrieved the phone and assisted to dial. Santosh has expressed a desire to return to [facility] as it is closer to his home and allows for him to have visitors. He has not made any recent expressions of going home or believing that he is capable of living independently. Discussed frustration around loss of independence and tendency to take that frustration out on staff or family. Santosh acknowledged this and was tearful. Update provided to Lorna, daughter/POA, on 04/09/21. Update provided to Valery, [facility] nurse, on this date. Faxed current notes, medication list, and labs to Valery for review. Lorna will be involved in team meeting on 04/14/21.
[2021-04-10 16:13] VITALS: BP 134/71
--- NOTE | 2021-04-10 17:49 | NUR ---
Pt's chair alarm was heard going off from his room. This nurse immediately went into his room approx 30 seconds from the alarm going off and observed pt laying on his R side on the ground with his arm tucked under his head like a pillow. He was laying in front of his bed approx 5 feet away from his w/c which was positioned away from the bed. Pt states he was "trying to get into bed." Pt absent of visible injuries, denies hitting his head. BP 156/69, HR 92, RR 18, O2 98% RA. Pt has been increasing in behaviors in which he is intentionally placing himself on the floor (or attempting), this appears to possibly be the case as well. Pt assisted into w/c 2:1 and brought back to the dining room to sit close to staff. This nurse explained to pt that he will not be able to be in his room by himself if he cannot be trusted to not engage in potentially dangerous behaviors. Pt verbalized understanding.
[2021-04-10] MEDS: ATORVASTATIN CALCIUM 20 MG TABLET PO SCH (19:37)
[2021-04-10] MEDS: MIRTAZAPINE 15 MG TABLET PO SCH (19:38)
--- NOTE | 2021-04-10 21:04 | PDOC ---
Exam Note: Jareth Note: Please also refer to the separate dictated note~for this date of service dictated separately.~Patient seen individually. Discussed the patient with Nursing staff reviewed the chart.~Reviewed interim history and current functioning. Reviewed vital signs,~Labs/ Radiology~and current medications noted below. Continue current treatment with the changes noted in the dictated addendum note Assessment: Vital Signs/I&O: Vital Signs Date Time Temp Pulse Resp B/P (MAP) Pulse Ox O2 Delivery O2 Flow Rate FiO2 04/10/21 17:00 79 134/71 04/10/21 16:13 97.8 18 95 Room Air I & O 04/09/21 04/09/21 04/10/21 15:00 23:00 07:00 Intake Total 720 ml 240 ml Balance 720 ml 240 ml Labs: Laboratory Tests Test 04/10/21 07:28 04/10/21 12:08 04/10/21 17:01 04/10/21 19:10 Glucose (Fingerstick) 136 mg/dL (70-99) H 129 mg/dL (70-99) H 98 mg/dL (70-99) 277 mg/dL (70-99) H Current Medications: Meds: Laboratory Tests Test 04/10/21 07:28 04/10/21 12:08 04/10/21 17:01 04/10/21 19:10 Glucose (Fingerstick) 136 mg/dL 129 mg/dL 98 mg/dL 277 mg/dL Current Medications Medications (Trade) Dose Ordered Sig/Komal Route PRN Reason Start Time Stop Time Status Last Admin Dose Admin Acetaminophen (Tylenol) 650 mg PRN Q6HRS PRN PO MILD PAIN / TEMP > 100.3'F 03/28/21 15:00 03/29/21 16:01 DC Multi-Ingredient Ointment (Analgesic [place]) 1 peggy PRN QID PRN TP MUSCLE PAIN 03/28/21 15:00 Al Hydroxide/Mg Hydroxide (Mylanta Plus Xs) 15 ml PRN AFTMEALHC PRN PO DYSPEPSIA 03/28/21 15:00 Magnesium Hydroxide (Milk Of Magnesia) 2,400 mg PRN QHS PRN PO 2nd choice CONSTIPATION 03/28/21 15:00 Acetaminophen (Tylenol) 650 mg TID PO 03/28/21 21:00 03/29/21 16:01 DC 03/29/21 08:59 Aspirin (Aspirin Chewable) 81 mg DAILY PO 03/29/21 09:00 04/10/21 07:58 Carvedilol (Coreg) 6.25 mg BIDWMEALS PO 03/28/21 17:00 04/10/21 17:00 Vitamin D (Vitamin D3) 2,000 unit DAILY PO 03/29/21 09:00 04/10/21 07:58 Cyanocobalamin (Vitamin B-12) 1,000 mcg QMONTH IM 04/09/21 09:00 04/09/21 09:43 Divalproex Sodium (Depakote Sprinkles) 250 mg BID PO 03/28/21 21:00 04/08/21 19:46 DC 04/08/21 08:28 Fluticasone Propionate (Flonase) 2 spray DAILY NS 03/29/21 09:00 03/29/21 16:01 DC 03/29/21 08:58 Hydralazine HCl (Apresoline) 10 mg PRN Q8HRS PRN PO HYPERTENSION 03/28/21 16:00 Losartan Potassium (Cozaar) 50 mg DAILY PO 03/29/21 09:00 04/06/21 16:31 DC 04/06/21 09:23 Megestrol Acetate (Megace Oral Susp) 400 mg BIDWBKFT/URIEL PO 03/29/21 08:00 04/10/21 12:08 Mirtazapine (Remeron) 15 mg QHS PO 03/28/21 21:00 04/10/21 19:38 Polyethylene Glycol (miraLAX) 17 gm PRN Q12HR PRN PO 1st choice CONSTIPATION 03/28/21 16:00 04/07/21 08:29 Sennosides (Senna) 8.6 mg PRN Q12HR PRN PO 3rd choice CONSTIPATION 03/28/21 16:00 04/07/21 08:27 Ticagrelor (Brilinta) 90 mg BID PO 03/28/21 21:00 04/10/21 19:37 Atorvastatin Calcium (Lipitor) 40 mg QHS PO 03/28/21 21:00 04/10/21 19:37 Insulin Human Lispro (HumaLOG) 10 units DAILYWSUP PRN SQ IF PT EATS >/= 25% OF NGOZI MEAL 03/28/21 16:15 03/29/21 11:54 DC Insulin Human Lispro (HumaLOG) 13 units BIDACBL SQ 03/29/21 07:30 03/29/21 11:56 DC Insulin Glargine (Lantus Syringe) 35 unit DAILYWBKFT SQ 03/29/21 08:00 04/10/21 08:00 Multivitamins/ Calcium (Thera-M Plus) 1 tab DAILY PO 03/29/21 09:00 04/10/21 07:58 Ondansetron HCl (Zofran Odt) 4 mg PRN Q12HR PRN PO NAUSEA/VOMITING 03/28/21 16:15 Insulin Human Lispro (HumaLOG) 10 units DAILYWSUP SQ 03/29/21 17:00 04/09/21 17:36 Insulin Human Lispro (HumaLOG) 13 units BIDWBKFT/URIEL SQ 03/29/21 12:00 04/10/21 12:00 Acetaminophen (Tylenol) 650 mg PRN TID PRN PO MILD PAIN / TEMP > 100.3'F 03/29/21 16:00 Fluticasone Propionate (Flonase) 2 spray PRN DAILY PRN NS ALLERGIES 03/29/21 16:00 Bupropion HCl (Wellbutrin Xl) 150 mg DAILY PO 03/30/21 09:00 03/30/21 20:20 DC Bupropion HCl (Wellbutrin Xl) 300 mg DAILY PO 04/02/21 09:00 03/30/21 20:20 DC Bupropion HCl (Wellbutrin) 75 mg 0900,1200 PO 03/31/21 09:00 04/02/21 14:00 DC 04/02/21 12:37 Bupropion HCl (Wellbutrin) 150 mg 0900 PO 04/02/21 09:00 04/01/21 17:59 DC Bupropion HCl (Wellbutrin) 75 mg NOON PO 04/03/21 12:00 04/05/21 21:00 DC 04/05/21 12:09 Bupropion HCl (Wellbutrin) 150 mg 0900 PO 04/03/21 09:00 04/07/21 09:01 DC 04/07/21 08:27 Bupropion HCl (Wellbutrin Xl) 150 mg 1200 PO 04/06/21 12:00 04/07/21 06:27 DC 04/06/21 12:08 Losartan Potassium (Cozaar) 100 mg DAILY PO 04/06/21 16:30 04/10/21 07:58 Bupropion HCl (Wellbutrin) 300 mg DAILY PO 04/08/21 09:00 04/10/21 07:57 Bupropion HCl (Wellbutrin) 150 mg DAILY@1200 PO 04/07/21 12:00 04/10/21 12:08 Aripiprazole (Abilify) 2 mg DAILY PO 04/10/21 09:00 04/10/21 08:00 Current Medications Medications (Trade) Dose Ordered Sig/Komal Route PRN Reason Start Time Stop Time Status Last Admin Dose Admin Aripiprazole (Abilify) 2 mg DAILY PO 04/10/21 09:00 04/10/21 08:00 I have reviewed the current psychotropics carefully including drug interactions. Risk benefit ratio favors no change other than as noted in my dictated progress note. Diagnosis: Problems: (1) Major depressive disorder, recurrent, severe with psychotic features (2) Mild cognitive impairment (3) Anxiety disorder, unspecified (4) Impulse control disorder, unspecified FREDDY SHEARER MD Apr 10, 2021 21:04
--- NOTE | 2021-04-11 04:21 | NUR ---
Nursing Note The patient was located in his room for his assessment and medication pass. The patient was compliant with medication and took them whole. The patient was alert to name and hospital. Pleasant and appropriate during interactions with this nurse. Currently sleeping in his room.
[2021-04-11 05:59] VITALS: BP 157/89
--- NOTE | 2021-04-11 07:23 | PDOC ---
Exam Note: Jareth Note: This note is a late entry for 04/10/2021 covers elements not covered in my initial note. Subjective: The patient was seen individually in the evening of 04/10/2021 with Andrea JIANG, discussed and reviewed the chart. The patient slept 7-1/2 hours previous night. He is frequently wanting to get into bed. He was sitting in the hallway as I met with him. He states he had a fall earlier today but no injury noted. Review of Systems: No CV, , pulmonary, eye, ENT system symptoms on review. Ambulation impaired in wheelchair. Mental Status Exam: The patient is reasonably oriented. Speech has some latency. Abstraction fair. Computation impaired. Language function intact. Mood and affect improved. No suicidal ideation. Laboratory Data: Reviewed. Impression: Major depressive disorder, recurrent, severe. Mild cognitive impairment. Anxiety disorder unspecified. Impulse control disorder unspecified. Plan: Continue psychotropics from initial note. Assessment: Vital Signs/I&O: Vital Signs Date Time Temp Pulse Resp B/P (MAP) Pulse Ox O2 Delivery O2 Flow Rate FiO2 04/11/21 05:59 97.4 76 18 157/89 (111) 96 Room Air I & O 04/10/21 04/10/21 04/11/21 15:00 23:00 07:00 Intake Total 840 ml 600 ml Balance 840 ml 600 ml Labs: Laboratory Tests Test 04/10/21 07:28 04/10/21 12:08 04/10/21 17:01 04/10/21 19:10 Glucose (Fingerstick) 136 mg/dL (70-99) H 129 mg/dL (70-99) H 98 mg/dL (70-99) 277 mg/dL (70-99) H Test 04/11/21 07:13 Glucose (Fingerstick) 163 mg/dL (70-99) H Current Medications: Meds: Laboratory Tests Test 04/10/21 07:28 04/10/21 12:08 04/10/21 17:01 04/10/21 19:10 Glucose (Fingerstick) 136 mg/dL 129 mg/dL 98 mg/dL 277 mg/dL Test 04/11/21 07:13 Glucose (Fingerstick) 163 mg/dL Current Medications Medications (Trade) Dose Ordered Sig/Komal Route PRN Reason Start Time Stop Time Status Last Admin Dose Admin Acetaminophen (Tylenol) 650 mg PRN Q6HRS PRN PO MILD PAIN / TEMP > 100.3'F 03/28/21 15:00 03/29/21 16:01 DC Multi-Ingredient Ointment (Analgesic [place]) 1 peggy PRN QID PRN TP MUSCLE PAIN 03/28/21 15:00 Al Hydroxide/Mg Hydroxide (Mylanta Plus Xs) 15 ml PRN AFTMEALHC PRN PO DYSPEPSIA 03/28/21 15:00 Magnesium Hydroxide (Milk Of Magnesia) 2,400 mg PRN QHS PRN PO 2nd choice CONSTIPATION 03/28/21 15:00 Acetaminophen (Tylenol) 650 mg TID PO 03/28/21 21:00 03/29/21 16:01 DC 03/29/21 08:59 Aspirin (Aspirin Chewable) 81 mg DAILY PO 03/29/21 09:00 04/10/21 07:58 Carvedilol (Coreg) 6.25 mg BIDWMEALS PO 03/28/21 17:00 04/10/21 17:00 Vitamin D (Vitamin D3) 2,000 unit DAILY PO 03/29/21 09:00 04/10/21 07:58 Cyanocobalamin (Vitamin B-12) 1,000 mcg QMONTH IM 04/09/21 09:00 04/09/21 09:43 Divalproex Sodium (Depakote Sprinkles) 250 mg BID PO 03/28/21 21:00 04/08/21 19:46 DC 04/08/21 08:28 Fluticasone Propionate (Flonase) 2 spray DAILY NS 03/29/21 09:00 03/29/21 16:01 DC 03/29/21 08:58 Hydralazine HCl (Apresoline) 10 mg PRN Q8HRS PRN PO HYPERTENSION 03/28/21 16:00 Losartan Potassium (Cozaar) 50 mg DAILY PO 03/29/21 09:00 04/06/21 16:31 DC 04/06/21 09:23 Megestrol Acetate (Megace Oral Susp) 400 mg BIDWBKFT/URIEL PO 03/29/21 08:00 04/10/21 12:08 Mirtazapine (Remeron) 15 mg QHS PO 03/28/21 21:00 04/10/21 19:38 Polyethylene Glycol (miraLAX) 17 gm PRN Q12HR PRN PO 1st choice CONSTIPATION 03/28/21 16:00 04/07/21 08:29 Sennosides (Senna) 8.6 mg PRN Q12HR PRN PO 3rd choice CONSTIPATION 03/28/21 16:00 04/07/21 08:27 Ticagrelor (Brilinta) 90 mg BID PO 03/28/21 21:00 04/10/21 19:37 Atorvastatin Calcium (Lipitor) 40 mg QHS PO 03/28/21 21:00 04/10/21 19:37 Insulin Human Lispro (HumaLOG) 10 units DAILYWSUP PRN SQ IF PT EATS >/= 25% OF NGOZI MEAL 03/28/21 16:15 03/29/21 11:54 DC Insulin Human Lispro (HumaLOG) 13 units BIDACBL SQ 03/29/21 07:30 03/29/21 11:56 DC Insulin Glargine (Lantus Syringe) 35 unit DAILYWBKFT SQ 03/29/21 08:00 04/10/21 08:00 Multivitamins/ Calcium (Thera-M Plus) 1 tab DAILY PO 03/29/21 09:00 04/10/21 07:58 Ondansetron HCl (Zofran Odt) 4 mg PRN Q12HR PRN PO NAUSEA/VOMITING 03/28/21 16:15 Insulin Human Lispro (HumaLOG) 10 units DAILYWSUP SQ 03/29/21 17:00 04/09/21 17:36 Insulin Human Lispro (HumaLOG) 13 units BIDWBKFT/URIEL SQ 03/29/21 12:00 04/10/21 12:00 Acetaminophen (Tylenol) 650 mg PRN TID PRN PO MILD PAIN / TEMP > 100.3'F 03/29/21 16:00 Fluticasone Propionate (Flonase) 2 spray PRN DAILY PRN NS ALLERGIES 03/29/21 16:00 Bupropion HCl (Wellbutrin Xl) 150 mg DAILY PO 03/30/21 09:00 03/30/21 20:20 DC Bupropion HCl (Wellbutrin Xl) 300 mg DAILY PO 04/02/21 09:00 03/30/21 20:20 DC Bupropion HCl (Wellbutrin) 75 mg 0900,1200 PO 03/31/21 09:00 04/02/21 14:00 DC 04/02/21 12:37 Bupropion HCl (Wellbutrin) 150 mg 0900 PO 04/02/21 09:00 04/01/21 17:59 DC Bupropion HCl (Wellbutrin) 75 mg NOON PO 04/03/21 12:00 04/05/21 21:00 DC 04/05/21 12:09 Bupropion HCl (Wellbutrin) 150 mg 0900 PO 04/03/21 09:00 04/07/21 09:01 DC 04/07/21 08:27 Bupropion HCl (Wellbutrin Xl) 150 mg 1200 PO 04/06/21 12:00 04/07/21 06:27 DC 04/06/21 12:08 Losartan Potassium (Cozaar) 100 mg DAILY PO 04/06/21 16:30 04/10/21 07:58 Bupropion HCl (Wellbutrin) 300 mg DAILY PO 04/08/21 09:00 04/10/21 07:57 Bupropion HCl (Wellbutrin) 150 mg DAILY@1200 PO 04/07/21 12:00 04/10/21 12:08 Aripiprazole (Abilify) 2 mg DAILY PO 04/10/21 09:00 04/10/21 08:00 Current Medications Medications (Trade) Dose Ordered Sig/Komal Route PRN Reason Start Time Stop Time Status Last Admin Dose Admin Aripiprazole (Abilify) 2 mg DAILY PO 04/10/21 09:00 04/10/21 08:00 I have reviewed the current psychotropics carefully including drug interactions. Risk benefit ratio favors no change other than as noted in my dictated progress note. Diagnosis: Problems: (1) Major depressive disorder, recurrent, severe with psychotic features (2) Mild cognitive impairment (3) Anxiety disorder, unspecified (4) Impulse control disorder, unspecified FREDDY SHEARER MD Apr 11, 2021 07:22
[2021-04-11] MEDS: MEGESTROL 400 MG/10 ML ORAL.SUSP. PO SCH ×2 (08:08→12:11)
[2021-04-11] MEDS: CARVEDILOL 6.25 MG TABLET PO SCH ×2 (08:09→17:13)
[2021-04-11] MEDS: TICAGRELOR 90 MG TABLET. PO SCH ×2 (08:09→20:51)
[2021-04-11] MEDS: CHOLECALCIFEROL (VITAMIN D3) 1,000 UNIT TABLET PO SCH (08:09)
[2021-04-11] MEDS: ARIPiprazole 2 MG TABLET PO SCH (08:09)
[2021-04-11] MEDS: MULTIVITAMIN with MINERAL TABLET. PO SCH (08:09)
[2021-04-11] MEDS: ASPIRIN CHEWABLE 81 MG TABLET. PO SCH (08:09)
[2021-04-11] MEDS: buPROPion 100 MG TABLET. PO SCH (08:10)
[2021-04-11] MEDS: LOSARTAN 50 MG TABLET. PO SCH (08:10)
--- NOTE | 2021-04-11 08:40 | NUR ---
Pt A&Ox3, appropriate in his interactions with this nurse. Pt remains slightly flat in affect and says few words during conversations, denies SI/HI/VH/AH/delusions/pain. He is compliant with medications crushed and mixed into pudding. Plan of care continues, will pass to next shift.
[2021-04-11] MEDS: INSULIN GLARGINE SYRINGE. SQ SCH (09:55)
[2021-04-11] MEDS: INSULIN LISPRO 300 UNITS/3 ML VIAL. SQ SCH ×3 (09:56→17:00)
[2021-04-11] MEDS: buPROPion 75 MG TABLET PO SCH (12:11)
[2021-04-11 16:08] VITALS: BP 142/82
[2021-04-11] MEDS: MIRTAZAPINE 15 MG TABLET PO SCH (20:51)
[2021-04-11] MEDS: ATORVASTATIN CALCIUM 20 MG TABLET PO SCH (20:51)
[2021-04-11] MEDS ORDERED: ARIPiprazole 2 MG TABLET PO ONE (21:00)
--- NOTE | 2021-04-11 21:07 | PDOC ---
Exam Note: Jareth Note: Please also refer to the separate dictated note~for this date of service dictated separately.~Patient seen individually. Discussed the patient with Nursing staff reviewed the chart.~Reviewed interim history and current functioning. Reviewed vital signs,~Labs/ Radiology~and current medications noted below. Continue current treatment with the changes noted in the dictated addendum note Assessment: Vital Signs/I&O: Vital Signs Date Time Temp Pulse Resp B/P (MAP) Pulse Ox O2 Delivery O2 Flow Rate FiO2 04/11/21 17:13 94 142/82 04/11/21 16:08 97.8 18 93 04/11/21 05:59 Room Air I & O 04/10/21 04/10/21 04/11/21 15:00 23:00 07:00 Intake Total 840 ml 600 ml Balance 840 ml 600 ml Labs: Laboratory Tests Test 04/11/21 07:13 04/11/21 11:15 04/11/21 16:24 04/11/21 19:27 Glucose (Fingerstick) 163 mg/dL (70-99) H 173 mg/dL (70-99) H 75 mg/dL (70-99) 157 mg/dL (70-99) H Current Medications: Meds: Laboratory Tests Test 04/11/21 07:13 04/11/21 11:15 04/11/21 16:24 04/11/21 19:27 Glucose (Fingerstick) 163 mg/dL 173 mg/dL 75 mg/dL 157 mg/dL Current Medications Medications (Trade) Dose Ordered Sig/Komal Route PRN Reason Start Time Stop Time Status Last Admin Dose Admin Acetaminophen (Tylenol) 650 mg PRN Q6HRS PRN PO MILD PAIN / TEMP > 100.3'F 03/28/21 15:00 03/29/21 16:01 DC Multi-Ingredient Ointment (Analgesic [place]) 1 peggy PRN QID PRN TP MUSCLE PAIN 03/28/21 15:00 Al Hydroxide/Mg Hydroxide (Mylanta Plus Xs) 15 ml PRN AFTMEALHC PRN PO DYSPEPSIA 03/28/21 15:00 Magnesium Hydroxide (Milk Of Magnesia) 2,400 mg PRN QHS PRN PO 2nd choice CONSTIPATION 03/28/21 15:00 Acetaminophen (Tylenol) 650 mg TID PO 03/28/21 21:00 03/29/21 16:01 DC 03/29/21 08:59 Aspirin (Aspirin Chewable) 81 mg DAILY PO 03/29/21 09:00 04/11/21 08:09 Carvedilol (Coreg) 6.25 mg BIDWMEALS PO 03/28/21 17:00 04/11/21 17:13 Vitamin D (Vitamin D3) 2,000 unit DAILY PO 03/29/21 09:00 04/11/21 08:09 Cyanocobalamin (Vitamin B-12) 1,000 mcg QMONTH IM 04/09/21 09:00 04/09/21 09:43 Divalproex Sodium (Depakote Sprinkles) 250 mg BID PO 03/28/21 21:00 04/08/21 19:46 DC 04/08/21 08:28 Fluticasone Propionate (Flonase) 2 spray DAILY NS 03/29/21 09:00 03/29/21 16:01 DC 03/29/21 08:58 Hydralazine HCl (Apresoline) 10 mg PRN Q8HRS PRN PO HYPERTENSION 03/28/21 16:00 Losartan Potassium (Cozaar) 50 mg DAILY PO 03/29/21 09:00 04/06/21 16:31 DC 04/06/21 09:23 Megestrol Acetate (Megace Oral Susp) 400 mg BIDWBKFT/URIEL PO 03/29/21 08:00 04/11/21 12:11 Mirtazapine (Remeron) 15 mg QHS PO 03/28/21 21:00 04/11/21 20:51 Polyethylene Glycol (miraLAX) 17 gm PRN Q12HR PRN PO 1st choice CONSTIPATION 03/28/21 16:00 04/07/21 08:29 Sennosides (Senna) 8.6 mg PRN Q12HR PRN PO 3rd choice CONSTIPATION 03/28/21 16:00 04/07/21 08:27 Ticagrelor (Brilinta) 90 mg BID PO 03/28/21 21:00 04/11/21 20:51 Atorvastatin Calcium (Lipitor) 40 mg QHS PO 03/28/21 21:00 04/11/21 20:51 Insulin Human Lispro (HumaLOG) 10 units DAILYWSUP PRN SQ IF PT EATS >/= 25% OF NGOZI MEAL 03/28/21 16:15 03/29/21 11:54 DC Insulin Human Lispro (HumaLOG) 13 units BIDACBL SQ 03/29/21 07:30 03/29/21 11:56 DC Insulin Glargine (Lantus Syringe) 35 unit DAILYWBKFT SQ 03/29/21 08:00 04/11/21 09:55 Multivitamins/ Calcium (Thera-M Plus) 1 tab DAILY PO 03/29/21 09:00 04/11/21 08:09 Ondansetron HCl (Zofran Odt) 4 mg PRN Q12HR PRN PO NAUSEA/VOMITING 03/28/21 16:15 Insulin Human Lispro (HumaLOG) 10 units DAILYWSUP SQ 03/29/21 17:00 04/09/21 17:36 Insulin Human Lispro (HumaLOG) 13 units BIDWBKFT/URIEL SQ 03/29/21 12:00 04/11/21 12:00 Acetaminophen (Tylenol) 650 mg PRN TID PRN PO MILD PAIN / TEMP > 100.3'F 03/29/21 16:00 Fluticasone Propionate (Flonase) 2 spray PRN DAILY PRN NS ALLERGIES 03/29/21 16:00 Bupropion HCl (Wellbutrin Xl) 150 mg DAILY PO 03/30/21 09:00 03/30/21 20:20 DC Bupropion HCl (Wellbutrin Xl) 300 mg DAILY PO 04/02/21 09:00 03/30/21 20:20 DC Bupropion HCl (Wellbutrin) 75 mg 0900,1200 PO 03/31/21 09:00 04/02/21 14:00 DC 04/02/21 12:37 Bupropion HCl (Wellbutrin) 150 mg 0900 PO 04/02/21 09:00 04/01/21 17:59 DC Bupropion HCl (Wellbutrin) 75 mg NOON PO 04/03/21 12:00 04/05/21 21:00 DC 04/05/21 12:09 Bupropion HCl (Wellbutrin) 150 mg 0900 PO 04/03/21 09:00 04/07/21 09:01 DC 04/07/21 08:27 Bupropion HCl (Wellbutrin Xl) 150 mg 1200 PO 04/06/21 12:00 04/07/21 06:27 DC 04/06/21 12:08 Losartan Potassium (Cozaar) 100 mg DAILY PO 04/06/21 16:30 04/11/21 08:10 Bupropion HCl (Wellbutrin) 300 mg DAILY PO 04/08/21 09:00 04/11/21 08:10 Bupropion HCl (Wellbutrin) 150 mg DAILY@1200 PO 04/07/21 12:00 04/11/21 12:11 Aripiprazole (Abilify) 2 mg DAILY PO 04/10/21 09:00 04/11/21 17:55 DC 04/11/21 08:09 Aripiprazole (Abilify) 5 mg HS PO 04/12/21 21:00 Aripiprazole (Abilify) 3 mg 1X ONCE PO 04/11/21 21:00 04/11/21 21:01 DC 04/11/21 20:52 Current Medications Medications (Trade) Dose Ordered Sig/Komal Route PRN Reason Start Time Stop Time Status Last Admin Dose Admin Aripiprazole (Abilify) 3 mg 1X ONCE PO 04/11/21 21:00 04/11/21 21:01 DC 04/11/21 20:52 I have reviewed the current psychotropics carefully including drug interactions. Risk benefit ratio favors no change other than as noted in my dictated progress note. Diagnosis: Problems: (1) Major depressive disorder, recurrent, severe with psychotic features (2) Mild cognitive impairment (3) Anxiety disorder, unspecified (4) Impulse control disorder, unspecified FREDDY SHEARER MD Apr 11, 2021 21:07
[2021-04-12 05:56] VITALS: BP 181/73
[2021-04-12] MEDS: INSULIN GLARGINE SYRINGE. SQ SCH (08:00)
[2021-04-12] MEDS: INSULIN LISPRO 300 UNITS/3 ML VIAL. SQ SCH ×3 (08:00→17:00)
[2021-04-12] MEDS: LOSARTAN 50 MG TABLET. PO SCH (08:08)
[2021-04-12] MEDS: MULTIVITAMIN with MINERAL TABLET. PO SCH (08:08)
[2021-04-12] MEDS: TICAGRELOR 90 MG TABLET. PO SCH ×2 (08:08→20:35)
[2021-04-12] MEDS: buPROPion 100 MG TABLET. PO SCH (08:08)
[2021-04-12] MEDS: MEGESTROL 400 MG/10 ML ORAL.SUSP. PO SCH ×2 (08:09→12:00)
[2021-04-12] MEDS: CHOLECALCIFEROL (VITAMIN D3) 1,000 UNIT TABLET PO SCH (08:09)
[2021-04-12] MEDS: ASPIRIN CHEWABLE 81 MG TABLET. PO SCH (08:09)
[2021-04-12] MEDS: CARVEDILOL 6.25 MG TABLET PO SCH ×2 (08:09→17:10)
[2021-04-12] MEDS: buPROPion 75 MG TABLET PO SCH (12:00)
--- NOTE | 2021-04-12 12:42 | NUR ---
Pt's chair alarm was heard from his room, this nurse immediately entered. Pt was observed attempting to self transfer from bed to w/c; he was laying supine, torso in the bed and legs in the w/c. Pt assisted back into w/c 2:1 and brought to the nurse station with staff while the other patients were completing their meals. This nurse discussed again with pt that if he continues to engage in potentially dangerous behaviors when he is alone in his room then he cannot be left alone in his room. Pt has been asleep in bed all morning from breakfast until it was time for lunch, and immediately after lunch he went back to his room to attempt to place himself back in bed to sleep some more. Instructions given to nursing staff to encourage pt to stay awake and out of bed during the afternoon and to not let him be unsupervised in his room.
[2021-04-12 15:19] VITALS: BP 130/75
--- NOTE | 2021-04-12 15:33 | NUR ---
Pt requested to be placed back into bed to nap before dinner. This nurse assisted to transfer him 1:1 from w/c to bed. This nurse explained to pt to use his legs to help stand and he verbalized understanding. Pt gave the "1,2,3" count leading to the transfer. As soon as pt exited w/c he deadweighted and tossed himself to the side in a bellyflop fashion onto the bed. I placed by knee under his buttocks in an effort to stabilize him and keep him in place on the bed, instructing him to put weight onto his feet so he could stand and not slide off the bed. Pt did not follow instructions and began to slide off the bed despite my knee stabilizing him. Pt guided onto the floor by this nurse. Pt transferred from floor to bed 2:1. Pt absent of visible injuries.
[2021-04-12] MEDS: ATORVASTATIN CALCIUM 20 MG TABLET PO SCH (20:35)
[2021-04-12] MEDS: ARIPiprazole 5 MG TABLET PO SCH (20:35)
[2021-04-12] MEDS: MIRTAZAPINE 15 MG TABLET PO SCH (20:35)
--- NOTE | 2021-04-12 21:08 | PDOC ---
Exam Note: Jareth Note: Please also refer to the separate dictated note~for this date of service dictated separately.~Patient seen individually. Discussed the patient with Nursing staff reviewed the chart.~Reviewed interim history and current functioning. Reviewed vital signs,~Labs/ Radiology~and current medications noted below. Continue current treatment with the changes noted in the dictated addendum note Assessment: Vital Signs/I&O: Vital Signs Date Time Temp Pulse Resp B/P (MAP) Pulse Ox O2 Delivery O2 Flow Rate FiO2 04/12/21 17:10 94 130/75 04/12/21 15:19 97.5 20 97 Room Air I & O 04/11/21 04/11/21 04/12/21 15:00 23:00 07:00 Intake Total 840 ml 900 ml Balance 840 ml 900 ml Labs: Laboratory Tests Test 04/12/21 07:27 04/12/21 11:10 04/12/21 16:54 04/12/21 19:07 Glucose (Fingerstick) 158 mg/dL (70-99) H 103 mg/dL (70-99) H 154 mg/dL (70-99) H 214 mg/dL (70-99) H Current Medications: Meds: Laboratory Tests Test 04/12/21 07:27 04/12/21 11:10 04/12/21 16:54 04/12/21 19:07 Glucose (Fingerstick) 158 mg/dL 103 mg/dL 154 mg/dL 214 mg/dL Current Medications Medications (Trade) Dose Ordered Sig/Komal Route PRN Reason Start Time Stop Time Status Last Admin Dose Admin Acetaminophen (Tylenol) 650 mg PRN Q6HRS PRN PO MILD PAIN / TEMP > 100.3'F 03/28/21 15:00 03/29/21 16:01 DC Multi-Ingredient Ointment (Analgesic [place]) 1 peggy PRN QID PRN TP MUSCLE PAIN 03/28/21 15:00 Al Hydroxide/Mg Hydroxide (Mylanta Plus Xs) 15 ml PRN AFTMEALHC PRN PO DYSPEPSIA 03/28/21 15:00 Magnesium Hydroxide (Milk Of Magnesia) 2,400 mg PRN QHS PRN PO 2nd choice CONSTIPATION 03/28/21 15:00 Acetaminophen (Tylenol) 650 mg TID PO 03/28/21 21:00 03/29/21 16:01 DC 10/30/21 08:59 Aspirin (Aspirin Chewable) 81 mg DAILY PO 03/29/21 09:00 04/12/21 08:09 Carvedilol (Coreg) 6.25 mg BIDWMEALS PO 03/28/21 17:00 04/12/21 17:10 Vitamin D (Vitamin D3) 2,000 unit DAILY PO 03/29/21 09:00 04/12/21 08:09 Cyanocobalamin (Vitamin B-12) 1,000 mcg QMONTH IM 04/09/21 09:00 04/09/21 09:43 Divalproex Sodium (Depakote Sprinkles) 250 mg BID PO 03/28/21 21:00 04/08/21 19:46 DC 04/08/21 08:28 Fluticasone Propionate (Flonase) 2 spray DAILY NS 03/29/21 09:00 03/29/21 16:01 DC 03/29/21 08:58 Hydralazine HCl (Apresoline) 10 mg PRN Q8HRS PRN PO HYPERTENSION 03/28/21 16:00 Losartan Potassium (Cozaar) 50 mg DAILY PO 03/29/21 09:00 04/06/21 16:31 DC 04/06/21 09:23 Megestrol Acetate (Megace Oral Susp) 400 mg BIDWBKFT/URIEL PO 03/29/21 08:00 04/12/21 12:00 Mirtazapine (Remeron) 15 mg QHS PO 03/28/21 21:00 04/12/21 20:35 Polyethylene Glycol (miraLAX) 17 gm PRN Q12HR PRN PO 1st choice CONSTIPATION 03/28/21 16:00 04/07/21 08:29 Sennosides (Senna) 8.6 mg PRN Q12HR PRN PO 3rd choice CONSTIPATION 03/28/21 16:00 04/07/21 08:27 Ticagrelor (Brilinta) 90 mg BID PO 03/28/21 21:00 04/12/21 20:35 Atorvastatin Calcium (Lipitor) 40 mg QHS PO 03/28/21 21:00 04/12/21 20:35 Insulin Human Lispro (HumaLOG) 10 units DAILYWSUP PRN SQ IF PT EATS >/= 25% OF NGOZI MEAL 03/28/21 16:15 03/29/21 11:54 DC Insulin Human Lispro (HumaLOG) 13 units BIDACBL SQ 03/29/21 07:30 03/29/21 11:56 DC Insulin Glargine (Lantus Syringe) 35 unit DAILYWBKFT SQ 03/29/21 08:00 04/12/21 08:00 Multivitamins/ Calcium (Thera-M Plus) 1 tab DAILY PO 03/29/21 09:00 04/12/21 08:08 Ondansetron HCl (Zofran Odt) 4 mg PRN Q12HR PRN PO NAUSEA/VOMITING 03/28/21 16:15 Insulin Human Lispro (HumaLOG) 10 units DAILYWSUP SQ 03/29/21 17:00 04/12/21 17:00 Insulin Human Lispro (HumaLOG) 13 units BIDWBKFT/URIEL SQ 03/29/21 12:00 04/12/21 08:00 Acetaminophen (Tylenol) 650 mg PRN TID PRN PO MILD PAIN / TEMP > 100.3'F 03/29/21 16:00 Fluticasone Propionate (Flonase) 2 spray PRN DAILY PRN NS ALLERGIES 03/29/21 16:00 Bupropion HCl (Wellbutrin Xl) 150 mg DAILY PO 03/30/21 09:00 03/30/21 20:20 DC Bupropion HCl (Wellbutrin Xl) 300 mg DAILY PO 04/02/21 09:00 03/30/21 20:20 DC Bupropion HCl (Wellbutrin) 75 mg 0900,1200 PO 03/31/21 09:00 04/02/21 14:00 DC 04/02/21 12:37 Bupropion HCl (Wellbutrin) 150 mg 0900 PO 04/02/21 09:00 04/01/21 17:59 DC Bupropion HCl (Wellbutrin) 75 mg NOON PO 04/03/21 12:00 04/05/21 21:00 DC 04/05/21 12:09 Bupropion HCl (Wellbutrin) 150 mg 0900 PO 04/03/21 09:00 04/07/21 09:01 DC 04/07/21 08:27 Bupropion HCl (Wellbutrin Xl) 150 mg 1200 PO 04/06/21 12:00 04/07/21 06:27 DC 04/06/21 12:08 Losartan Potassium (Cozaar) 100 mg DAILY PO 04/06/21 16:30 04/12/21 08:08 Bupropion HCl (Wellbutrin) 300 mg DAILY PO 04/08/21 09:00 04/12/21 08:08 Bupropion HCl (Wellbutrin) 150 mg DAILY@1200 PO 04/07/21 12:00 04/12/21 12:00 Aripiprazole (Abilify) 2 mg DAILY PO 04/10/21 09:00 04/11/21 17:55 DC 04/11/21 08:09 Aripiprazole (Abilify) 5 mg HS PO 04/12/21 21:00 04/12/21 20:35 Aripiprazole (Abilify) 3 mg 1X ONCE PO 04/11/21 21:00 04/11/21 21:01 DC 04/11/21 20:52 Current Medications Medications (Trade) Dose Ordered Sig/Komal Route PRN Reason Start Time Stop Time Status Last Admin Dose Admin Aripiprazole (Abilify) 5 mg HS PO 04/12/21 21:00 04/12/21 20:35 I have reviewed the current psychotropics carefully including drug interactions. Risk benefit ratio favors no change other than as noted in my dictated progress note. Diagnosis: Problems: (1) Major depressive disorder, recurrent, severe with psychotic features (2) Mild cognitive impairment (3) Anxiety disorder, unspecified (4) Impulse control disorder, unspecified FREDDY SHEARER MD Apr 12, 2021 21:08
[2021-04-13 05:55] VITALS: BP 176/85
--- NOTE | 2021-04-13 07:18 | PDOC ---
Exam Note: Jareth Note: This note is a late entry for 04/11/2021 covers elements not covered in my initial note. Subjective: The patient was seen individually in the evening of 04/11/2021 with Celestina JIANG, discussed and reviewed the chart. The patient slept 8-1/2 hours previous night. He was seen in his room. He is lying in bed. He has been somewhat isolative, withdrawn, still depressed but not tearful. Review of Systems: No CV, , pulmonary, eye, ENT system symptoms on review. Ambulation impaired in wheelchair. Mental Status Exam: The patient is oriented to himself and situation. Speech has some latency, coherent. Abstraction fair. Computation impaired. Language function intact. Mood and affect somewhat withdrawn. No suicidal or homicidal ideation. He is less depressed and anxious. Laboratory Data: Reviewed. Impression: Major depressive disorder, recurrent, severe. Mild cognitive impairment. Anxiety disorder unspecified. Impulse control disorder unspecified. Plan: Continue psychotropics from initial note. We will increase the Abilify from 2 mg a day to 5 mg h.s. to augment the Wellbutrin which is currently at 450 mg a day. Appetite is better. We will maintain Megace for now but consider stopping it and continue Remeron for now. Assessment: Vital Signs/I&O: Vital Signs Date Time Temp Pulse Resp B/P (MAP) Pulse Ox O2 Delivery O2 Flow Rate FiO2 04/13/21 05:55 98.2 94 20 176/85 (115) 96 Room Air I & O 04/12/21 04/12/21 04/13/21 15:00 23:00 07:00 Intake Total 360 ml 600 ml Balance 360 ml 600 ml Labs: Laboratory Tests Test 04/12/21 07:27 04/12/21 11:10 04/12/21 16:54 04/12/21 19:07 Glucose (Fingerstick) 158 mg/dL (70-99) H 103 mg/dL (70-99) H 154 mg/dL (70-99) H 214 mg/dL (70-99) H Current Medications: Meds: Laboratory Tests Test 04/12/21 07:27 04/12/21 11:10 04/12/21 16:54 04/12/21 19:07 Glucose (Fingerstick) 158 mg/dL 103 mg/dL 154 mg/dL 214 mg/dL Current Medications Medications (Trade) Dose Ordered Sig/Komal Route PRN Reason Start Time Stop Time Status Last Admin Dose Admin Acetaminophen (Tylenol) 650 mg PRN Q6HRS PRN PO MILD PAIN / TEMP > 100.3'F 03/28/21 15:00 03/29/21 16:01 DC Multi-Ingredient Ointment (Analgesic [place]) 1 peggy PRN QID PRN TP MUSCLE PAIN 03/28/21 15:00 Al Hydroxide/Mg Hydroxide (Mylanta Plus Xs) 15 ml PRN AFTMEALHC PRN PO DYSPEPSIA 03/28/21 15:00 Magnesium Hydroxide (Milk Of Magnesia) 2,400 mg PRN QHS PRN PO 2nd choice CONSTIPATION 03/28/21 15:00 Acetaminophen (Tylenol) 650 mg TID PO 03/28/21 21:00 03/29/21 16:01 DC 03/29/21 08:59 Aspirin (Aspirin Chewable) 81 mg DAILY PO 03/29/21 09:00 04/12/21 08:09 Carvedilol (Coreg) 6.25 mg BIDWMEALS PO 03/28/21 17:00 04/12/21 17:10 Vitamin D (Vitamin D3) 2,000 unit DAILY PO 03/29/21 09:00 04/12/21 08:09 Cyanocobalamin (Vitamin B-12) 1,000 mcg QMONTH IM 04/09/21 09:00 04/09/21 09:43 Divalproex Sodium (Depakote Sprinkles) 250 mg BID PO 03/28/21 21:00 04/08/21 19:46 DC 04/08/21 08:28 Fluticasone Propionate (Flonase) 2 spray DAILY NS 03/29/21 09:00 03/29/21 16:01 DC 03/29/21 08:58 Hydralazine HCl (Apresoline) 10 mg PRN Q8HRS PRN PO HYPERTENSION 03/28/21 16:00 Losartan Potassium (Cozaar) 50 mg DAILY PO 03/29/21 09:00 04/06/21 16:31 DC 04/06/21 09:23 Megestrol Acetate (Megace Oral Susp) 400 mg BIDWBKFT/URIEL PO 03/29/21 08:00 04/12/21 12:00 Mirtazapine (Remeron) 15 mg QHS PO 03/28/21 21:00 04/12/21 20:35 Polyethylene Glycol (miraLAX) 17 gm PRN Q12HR PRN PO 1st choice CONSTIPATION 03/28/21 16:00 04/07/21 08:29 Sennosides (Senna) 8.6 mg PRN Q12HR PRN PO 3rd choice CONSTIPATION 03/28/21 16:00 04/07/21 08:27 Ticagrelor (Brilinta) 90 mg BID PO 03/28/21 21:00 04/12/21 20:35 Atorvastatin Calcium (Lipitor) 40 mg QHS PO 03/28/21 21:00 04/12/21 20:35 Insulin Human Lispro (HumaLOG) 10 units DAILYWSUP PRN SQ IF PT EATS >/= 25% OF NGOZI MEAL 03/28/21 16:15 03/29/21 11:54 DC Insulin Human Lispro (HumaLOG) 13 units BIDACBL SQ 03/29/21 07:30 03/29/21 11:56 DC Insulin Glargine (Lantus Syringe) 35 unit DAILYWBKFT SQ 03/29/21 08:00 04/12/21 08:00 Multivitamins/ Calcium (Thera-M Plus) 1 tab DAILY PO 03/29/21 09:00 04/12/21 08:08 Ondansetron HCl (Zofran Odt) 4 mg PRN Q12HR PRN PO NAUSEA/VOMITING 03/28/21 16:15 Insulin Human Lispro (HumaLOG) 10 units DAILYWSUP SQ 03/29/21 17:00 04/12/21 17:00 Insulin Human Lispro (HumaLOG) 13 units BIDWBKFT/URIEL SQ 03/29/21 12:00 04/12/21 08:00 Acetaminophen (Tylenol) 650 mg PRN TID PRN PO MILD PAIN / TEMP > 100.3'F 03/29/21 16:00 Fluticasone Propionate (Flonase) 2 spray PRN DAILY PRN NS ALLERGIES 03/29/21 16:00 Bupropion HCl (Wellbutrin Xl) 150 mg DAILY PO 03/30/21 09:00 03/30/21 20:20 DC Bupropion HCl (Wellbutrin Xl) 300 mg DAILY PO 04/02/21 09:00 03/30/21 20:20 DC Bupropion HCl (Wellbutrin) 75 mg 0900,1200 PO 03/31/21 09:00 04/02/21 14:00 DC 04/02/21 12:37 Bupropion HCl (Wellbutrin) 150 mg 0900 PO 04/02/21 09:00 04/01/21 17:59 DC Bupropion HCl (Wellbutrin) 75 mg NOON PO 04/03/21 12:00 04/05/21 21:00 DC 04/05/21 12:09 Bupropion HCl (Wellbutrin) 150 mg 0900 PO 04/03/21 09:00 04/07/21 09:01 DC 04/07/21 08:27 Bupropion HCl (Wellbutrin Xl) 150 mg 1200 PO 04/06/21 12:00 04/07/21 06:27 DC 04/06/21 12:08 Losartan Potassium (Cozaar) 100 mg DAILY PO 04/06/21 16:30 04/12/21 08:08 Bupropion HCl (Wellbutrin) 300 mg DAILY PO 04/08/21 09:00 04/12/21 08:08 Bupropion HCl (Wellbutrin) 150 mg DAILY@1200 PO 04/07/21 12:00 04/12/21 12:00 Aripiprazole (Abilify) 2 mg DAILY PO 04/10/21 09:00 04/11/21 17:55 DC 04/11/21 08:09 Aripiprazole (Abilify) 5 mg HS PO 04/12/21 21:00 04/12/21 20:35 Aripiprazole (Abilify) 3 mg 1X ONCE PO 04/11/21 21:00 04/11/21 21:01 DC 04/11/21 20:52 Current Medications Medications (Trade) Dose Ordered Sig/Komal Route PRN Reason Start Time Stop Time Status Last Admin Dose Admin Aripiprazole (Abilify) 5 mg HS PO 04/12/21 21:00 04/12/21 20:35 I have reviewed the current psychotropics carefully including drug interactions. Risk benefit ratio favors no change other than as noted in my dictated progress note. Diagnosis: Problems: (1) Major depressive disorder, recurrent, severe with psychotic features (2) Mild cognitive impairment (3) Anxiety disorder, unspecified (4) Impulse control disorder, unspecified FREDDY SHEARER MD Apr 13, 2021 07:18
[2021-04-13] MEDS: MEGESTROL 400 MG/10 ML ORAL.SUSP. PO SCH ×2 (09:07→13:12)
[2021-04-13] MEDS: ASPIRIN CHEWABLE 81 MG TABLET. PO SCH (09:08)
[2021-04-13] MEDS: buPROPion 100 MG TABLET. PO SCH (09:08)
[2021-04-13] MEDS: CHOLECALCIFEROL (VITAMIN D3) 1,000 UNIT TABLET PO SCH (09:08)
[2021-04-13] MEDS: LOSARTAN 50 MG TABLET. PO SCH (09:08)
[2021-04-13] MEDS: TICAGRELOR 90 MG TABLET. PO SCH ×2 (09:08→19:58)
[2021-04-13] MEDS: MULTIVITAMIN with MINERAL TABLET. PO SCH (09:08)
[2021-04-13] MEDS: CARVEDILOL 6.25 MG TABLET PO SCH ×2 (09:09→17:33)
[2021-04-13] MEDS: INSULIN GLARGINE SYRINGE. SQ SCH (09:51)
[2021-04-13] MEDS: INSULIN LISPRO 300 UNITS/3 ML VIAL. SQ SCH ×3 (09:51→17:37)
[2021-04-13 10:58] VITALS: BP 61/44
[2021-04-13 11:00] VITALS: BP 123/85
[2021-04-13 11:25] VITALS: BP 126/74
[2021-04-13 12:15] LABS: BASO # 0.1 x10^3/uL (0.0-0.2); BASO % 2 % (0-3); EOS # 0.4 x10^3/uL (0.0-0.7); EOS % 5 % (0-3); HEMATOCRIT 29.9 % (39.0-53.0); HEMOGLOBIN 10.1 g/dL (13.0-17.5); LYMPH # 2.3 x10^3/uL (1.0-4.8); LYMPH % 24 % (24-48); MEAN CORPUSCULAR HEMOGLOBIN 31 pg (25-35); MEAN CORPUSCULAR HGB CONC 34 g/dL (31-37); MEAN CORPUSCULAR VOLUME 91 fL (79-100); MONO # 1.3 x10^3/uL (0.0-1.1); MONO % 14 % (0-9); NEUT # 5.3 x10^3uL (1.8-7.7); NEUT % 56 % (31-73); PLATELET COUNT 292 x10^3/uL (140-400); WHITE BLOOD COUNT 9.4 x10^3/uL (4.0-11.0)
[2021-04-13 12:17] LABS: CALCIUM 9.3 mg/dL (8.5-10.1); CREATININE 2.5 mg/dL (0.7-1.3); GFR 25.2
[2021-04-13 12:23] LABS: ALBUMIN 3.6 g/dL (3.4-5.0); ALBUMIN/GLOBULIN RATIO 1.1 (1.0-1.7); TOTAL BILIRUBIN 0.4 mg/dL (0.2-1.0); TOTAL PROTEIN 6.8 g/dL (6.4-8.2)
[2021-04-13] MEDS: buPROPion 75 MG TABLET PO SCH (13:13)
--- NOTE | 2021-04-13 15:21 | NUR ---
Nursing note: Patient in bedroom for morning medication and assessment. He is compliant with taking medications crushed/floated in pudding. He ate breakfast late, this nurse observed his napkin that appeared to have scant amount of bloody mucus on it. Patient stated he blew his nose. He is A/O X 3, unable to report situation. Patient can be rude, demanding, confused, withdrawn and isolative. He did not participate in groups or interact with peers. Patient denies having any pain/discomfort at this time. He propels self through unit and bedroom in w/c, he requires a stand by assist with transfers. He is currently laying in bed eating a snack. Will continue to monitor.
[2021-04-13 16:07] VITALS: BP 138/75
[2021-04-13] MEDS: MIRTAZAPINE 15 MG TABLET PO SCH (19:57)
[2021-04-13] MEDS: ARIPiprazole 5 MG TABLET PO SCH (19:57)
[2021-04-13] MEDS: ATORVASTATIN CALCIUM 20 MG TABLET PO SCH (19:58)
--- NOTE | 2021-04-13 21:01 | PDOC ---
Exam Note: Jareth Note: Please also refer to the separate dictated note~for this date of service dictated separately.~Patient seen individually. Discussed the patient with Nursing staff reviewed the chart.~Reviewed interim history and current functioning. Reviewed vital signs,~Labs/ Radiology~and current medications noted below. Continue current treatment with the changes noted in the dictated addendum note Assessment: Vital Signs/I&O: Vital Signs Date Time Temp Pulse Resp B/P (MAP) Pulse Ox O2 Delivery O2 Flow Rate FiO2 04/13/21 17:33 89 138/75 04/13/21 16:07 98.2 18 99 Room Air I & O 04/12/21 04/12/21 04/13/21 15:00 23:00 07:00 Intake Total 360 ml 600 ml Balance 360 ml 600 ml Labs: Laboratory Tests Test 04/13/21 07:32 04/13/21 11:33 04/13/21 11:56 04/13/21 13:10 Glucose (Fingerstick) 140 mg/dL (70-99) H 97 mg/dL (70-99) 90 mg/dL (70-99) White Blood Count 9.4 x10^3/uL (4.0-11.0) Red Blood Count 3.30 x10^6/uL (4.30-5.70) L Hemoglobin 10.1 g/dL (13.0-17.5) L Hematocrit 29.9 % (39.0-53.0) L Mean Corpuscular Volume 91 fL (79-100) Mean Corpuscular Hemoglobin 31 pg (25-35) Mean Corpuscular Hemoglobin Concent 34 g/dL (31-37) Red Cell Distribution Width 15.0 % (11.5-14.5) H Platelet Count 292 x10^3/uL (140-400) Neutrophils (%) (Auto) 56 % (31-73) Lymphocytes (%) (Auto) 24 % (24-48) Monocytes (%) (Auto) 14 % (0-9) H Eosinophils (%) (Auto) 5 % (0-3) H Basophils (%) (Auto) 2 % (0-3) Neutrophils # (Auto) 5.3 x10^3uL (1.8-7.7) Lymphocytes # (Auto) 2.3 x10^3/uL (1.0-4.8) Monocytes # (Auto) 1.3 x10^3/uL (0.0-1.1) H Eosinophils # (Auto) 0.4 x10^3/uL (0.0-0.7) Basophils # (Auto) 0.1 x10^3/uL (0.0-0.2) Sodium Level 136 mmol/L (136-145) Potassium Level 4.0 mmol/L (3.5-5.1) Chloride Level 103 mmol/L (98-107) Carbon Dioxide Level 20 mmol/L (21-32) L Anion Gap 13 (6-14) Blood Urea Nitrogen 39 mg/dL (8-26) H Creatinine 2.5 mg/dL (0.7-1.3) H Estimated GFR (Cockcroft-Gault) 25.2 BUN/Creatinine Ratio 16 (6-20) Glucose Level 58 mg/dL (70-99) L Calcium Level 9.3 mg/dL (8.5-10.1) Total Bilirubin 0.4 mg/dL (0.2-1.0) Aspartate Amino Transferase (AST) 13 U/L (15-37) L Alanine Aminotransferase (ALT) 30 U/L (16-63) Alkaline Phosphatase 90 U/L (46-116) Total Protein 6.8 g/dL (6.4-8.2) Albumin 3.6 g/dL (3.4-5.0) Albumin/Globulin Ratio 1.1 (1.0-1.7) Test 04/13/21 16:19 04/13/21 18:59 Glucose (Fingerstick) 153 mg/dL (70-99) H 154 mg/dL (70-99) H Current Medications: Meds: Laboratory Tests Test 04/13/21 07:32 04/13/21 11:33 04/13/21 11:56 04/13/21 13:10 Glucose (Fingerstick) 140 mg/dL 97 mg/dL 90 mg/dL White Blood Count 9.4 x10^3/uL Red Blood Count 3.30 x10^6/uL Hemoglobin 10.1 g/dL Hematocrit 29.9 % Mean Corpuscular Volume 91 fL Mean Corpuscular Hemoglobin 31 pg Mean Corpuscular Hemoglobin Concent 34 g/dL Red Cell Distribution Width 15.0 % Platelet Count 292 x10^3/uL Neutrophils (%) (Auto) 56 % Lymphocytes (%) (Auto) 24 % Monocytes (%) (Auto) 14 % Eosinophils (%) (Auto) 5 % Basophils (%) (Auto) 2 % Neutrophils # (Auto) 5.3 x10^3uL Lymphocytes # (Auto) 2.3 x10^3/uL Monocytes # (Auto) 1.3 x10^3/uL Eosinophils # (Auto) 0.4 x10^3/uL Basophils # (Auto) 0.1 x10^3/uL Sodium Level 136 mmol/L Potassium Level 4.0 mmol/L Chloride Level 103 mmol/L Carbon Dioxide Level 20 mmol/L Anion Gap 13 Blood Urea Nitrogen 39 mg/dL Creatinine 2.5 mg/dL Estimated GFR (Cockcroft-Gault) 25.2 BUN/Creatinine Ratio 16 Glucose Level 58 mg/dL Calcium Level 9.3 mg/dL Total Bilirubin 0.4 mg/dL Aspartate Amino Transf (AST/SGOT) 13 U/L Alanine Aminotransferase (ALT/SGPT) 30 U/L Alkaline Phosphatase 90 U/L Total Protein 6.8 g/dL Albumin 3.6 g/dL Albumin/Globulin Ratio 1.1 Test 04/13/21 16:19 04/13/21 18:59 Glucose (Fingerstick) 153 mg/dL 154 mg/dL Current Medications Medications (Trade) Dose Ordered Sig/Komal Route PRN Reason Start Time Stop Time Status Last Admin Dose Admin Acetaminophen (Tylenol) 650 mg PRN Q6HRS PRN PO MILD PAIN / TEMP > 100.3'F 03/28/21 15:00 03/29/21 16:01 DC Multi-Ingredient Ointment (Analgesic [place]) 1 peggy PRN QID PRN TP MUSCLE PAIN 03/28/21 15:00 Al Hydroxide/Mg Hydroxide (Mylanta Plus Xs) 15 ml PRN AFTMEALHC PRN PO DYSPEPSIA 03/28/21 15:00 Magnesium Hydroxide (Milk Of Magnesia) 2,400 mg PRN QHS PRN PO 2nd choice CONSTIPATION 03/28/21 15:00 04/13/21 19:58 Acetaminophen (Tylenol) 650 mg TID PO 03/28/21 21:00 03/29/21 16:01 DC 03/29/21 08:59 Aspirin (Aspirin Chewable) 81 mg DAILY PO 03/29/21 09:00 04/13/21 09:08 Carvedilol (Coreg) 6.25 mg BIDWMEALS PO 03/28/21 17:00 04/13/21 17:33 Vitamin D (Vitamin D3) 2,000 unit DAILY PO 03/29/21 09:00 04/13/21 09:08 Cyanocobalamin (Vitamin B-12) 1,000 mcg QMONTH IM 04/09/21 09:00 04/09/21 09:43 Divalproex Sodium (Depakote Sprinkles) 250 mg BID PO 03/28/21 21:00 04/08/21 19:46 DC 04/08/21 08:28 Fluticasone Propionate (Flonase) 2 spray DAILY NS 03/29/21 09:00 03/29/21 16:01 DC 03/29/21 08:58 Hydralazine HCl (Apresoline) 10 mg PRN Q8HRS PRN PO HYPERTENSION 03/28/21 16:00 Losartan Potassium (Cozaar) 50 mg DAILY PO 03/29/21 09:00 04/06/21 16:31 DC 04/06/21 09:23 Megestrol Acetate (Megace Oral Susp) 400 mg BIDWBKFT/URIEL PO 03/29/21 08:00 04/13/21 13:12 Mirtazapine (Remeron) 15 mg QHS PO 03/28/21 21:00 04/13/21 19:57 Polyethylene Glycol (miraLAX) 17 gm PRN Q12HR PRN PO 1st choice CONSTIPATION 03/28/21 16:00 04/07/21 08:29 Sennosides (Senna) 8.6 mg PRN Q12HR PRN PO 3rd choice CONSTIPATION 03/28/21 16:00 04/07/21 08:27 Ticagrelor (Brilinta) 90 mg BID PO 03/28/21 21:00 04/13/21 19:58 Atorvastatin Calcium (Lipitor) 40 mg QHS PO 03/28/21 21:00 04/13/21 19:58 Insulin Human Lispro (HumaLOG) 10 units DAILYWSUP PRN SQ IF PT EATS >/= 25% OF NGOZI MEAL 03/28/21 16:15 03/29/21 11:54 DC Insulin Human Lispro (HumaLOG) 13 units BIDACBL SQ 03/29/21 07:30 03/29/21 11:56 DC Insulin Glargine (Lantus Syringe) 35 unit DAILYWBKFT SQ 03/29/21 08:00 04/13/21 09:51 Multivitamins/ Calcium (Thera-M Plus) 1 tab DAILY PO 03/29/21 09:00 04/13/21 09:08 Ondansetron HCl (Zofran Odt) 4 mg PRN Q12HR PRN PO NAUSEA/VOMITING 03/28/21 16:15 Insulin Human Lispro (HumaLOG) 10 units DAILYWSUP SQ 03/29/21 17:00 04/13/21 17:37 Insulin Human Lispro (HumaLOG) 13 units BIDWBKFT/URIEL SQ 03/29/21 12:00 04/13/21 09:51 Acetaminophen (Tylenol) 650 mg PRN TID PRN PO MILD PAIN / TEMP > 100.3'F 03/29/21 16:00 Fluticasone Propionate (Flonase) 2 spray PRN DAILY PRN NS ALLERGIES 03/29/21 16:00 Bupropion HCl (Wellbutrin Xl) 150 mg DAILY PO 03/30/21 09:00 03/30/21 20:20 DC Bupropion HCl (Wellbutrin Xl) 300 mg DAILY PO 04/02/21 09:00 03/30/21 20:20 DC Bupropion HCl (Wellbutrin) 75 mg 0900,1200 PO 03/31/21 09:00 04/02/21 14:00 DC 04/02/21 12:37 Bupropion HCl (Wellbutrin) 150 mg 0900 PO 04/02/21 09:00 04/01/21 17:59 DC Bupropion HCl (Wellbutrin) 75 mg NOON PO 04/03/21 12:00 04/05/21 21:00 DC 04/05/21 12:09 Bupropion HCl (Wellbutrin) 150 mg 0900 PO 04/03/21 09:00 04/07/21 09:01 DC 04/07/21 08:27 Bupropion HCl (Wellbutrin Xl) 150 mg 1200 PO 04/06/21 12:00 04/07/21 06:27 DC 04/06/21 12:08 Losartan Potassium (Cozaar) 100 mg DAILY PO 04/06/21 16:30 04/13/21 11:24 DC 04/13/21 09:08 Bupropion HCl (Wellbutrin) 300 mg DAILY PO 04/08/21 09:00 04/13/21 09:08 Bupropion HCl (Wellbutrin) 150 mg DAILY@1200 PO 04/07/21 12:00 04/13/21 13:13 Aripiprazole (Abilify) 2 mg DAILY PO 04/10/21 09:00 04/11/21 17:55 DC 04/11/21 08:09 Aripiprazole (Abilify) 5 mg HS PO 04/12/21 21:00 04/13/21 19:57 Aripiprazole (Abilify) 3 mg 1X ONCE PO 04/11/21 21:00 04/11/21 21:01 DC 04/11/21 20:52 I have reviewed the current psychotropics carefully including drug interactions. Risk benefit ratio favors no change other than as noted in my dictated progress note. Diagnosis: Problems: (1) Major depressive disorder, recurrent, severe with psychotic features (2) Mild cognitive impairment (3) Anxiety disorder, unspecified (4) Impulse control disorder, unspecified FREDDY SHEARER MD Apr 13, 2021 21:01
--- NOTE | 2021-04-13 22:48 | NUR ---
Patient is located in his room on assumption of care, awake in bed. He is withdrawn, depressed, irritable. He was compliant with assessments and medications crushed in chocolate pudding. PRN MOM given with HS meds due to no recorded BM since 04/11. Cooperative with HS cares. Patient denies any SI thoughts at this time. He denies any pain or discomfort. Appears to be sleeping comfortably at present time. Will continue to monitor.
[2021-04-14 05:41] VITALS: BP 140/80
[2021-04-14] MEDS: INSULIN LISPRO 300 UNITS/3 ML VIAL. SQ SCH ×3 (08:00→17:00)
[2021-04-14] MEDS: ASPIRIN CHEWABLE 81 MG TABLET. PO SCH (08:28)
[2021-04-14] MEDS: SENNOSIDES 8.6 MG TABLET PO PRN ×2 (08:28→20:21)
[2021-04-14] MEDS: MEGESTROL 400 MG/10 ML ORAL.SUSP. PO SCH ×2 (08:28→12:14)
[2021-04-14] MEDS: TICAGRELOR 90 MG TABLET. PO SCH ×2 (08:29→20:21)
[2021-04-14] MEDS: CARVEDILOL 6.25 MG TABLET PO SCH ×2 (08:29→17:18)
[2021-04-14] MEDS: CHOLECALCIFEROL (VITAMIN D3) 1,000 UNIT TABLET PO SCH (08:29)
[2021-04-14] MEDS: MULTIVITAMIN with MINERAL TABLET. PO SCH (08:29)
[2021-04-14] MEDS: buPROPion 100 MG TABLET. PO SCH (08:29)
[2021-04-14] MEDS: POLYETHYLENE GLYCOL 3350 17 GM PACKET. PO PRN (08:31)
[2021-04-14] MEDS: INSULIN GLARGINE SYRINGE. SQ SCH (09:40)
[2021-04-14] MEDS: buPROPion 75 MG TABLET PO SCH (12:14)
--- NOTE | 2021-04-14 12:48 | NUR ---
WEEKLY ACTIVITY THERAPY NOTE Date of Admission: 03/28/21 Date of AT Assessment: 03/31 Precipitating behaviors that initiated intake and admission: Patient was reported to be tearful, not eating, depressed r/t deteriorating physical condition post-stroke, expressing he wants to , threatening staff with cane Goal aimed: increase socialization and engagement Initial Goal: Pt will participate in at least five Activity Therapy sessions before discharge Weekly progress towards goal: on track (04/09-music through the decades) Group participation level: 1 full Weekly highlights: guessed tv show theme songs accurately Wednesday afternoon Behaviors observed: encouragement needed for group participation, quiet and pleasant Plan: no change to goal Beneficial adaptations: encouragement
--- NOTE | 2021-04-14 14:05 | TX PLAN ---
Interdisciplinary Tx Plan Admission Information Mar 28, 2021 at 14:27 Legal Status (on Admission): Voluntary, DPOA DPOA/Guardian Name: Lorna Vasquez-daughter Contact Other Contact Name: Tung Other Contact Verified Code Status: DNR Allergies: Coded Allergies: No Known Drug Allergies (Unverified , 03/28/21) Estimated Length of Stay: 14 Diagnoses Primary Diagnosis: MDD Reasons for Admission: Aggressive, Agitated, Depressed, Angry, Suicidal ideation, Isolating, Poor impulse control Problem in Patient's Words: Roger Bernstein, "I had a stroke." Additional Admission Comments: Per intake, depressed related to 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 Problems Active Problems: Depressed Isolating Angry Tearful Poor intake Inactive Problems: Medication compliant Averaging nine hours of sleep Pt Strengths/Limitations Ability for [place]: Fair Cognitive Functioning/Ability: Fair Communication Skills/Ability: Fair Financial Resources: Fair Insight/Judgement: Fair Intellectual Ability: Fair Physical Health: Fair Social Skills: Fair Stability in Family: Good Verbal Skills: Fair Discharge Criteria Discharge Criteria: Adequate arrangements @DC, Improved behavior, Improved mood/thought Preliminary Discharge Plan Preliminary DC Plan: Nursing Home Other Arrangements: [facility] Special Precautions Special Precautions: Agitation/Assault Fall Risk: High Initial D/C Plan [facility] Identified Discharge Needs: Out patient psychiatry and counseling, if available Currently Utilized Resources Currently Utilized Resources/P: PCP 24 hour care and oversight provided by SNF Referrals Community Resources: Out patient psychiatry and counseling, if available Identified Problems/Hx/Goals Objectives/Short-Term Goals Short Term Goals: Control abnormal behavior, Dec. Aggression, Dec. Symp. Depression, Improved Social Skills, Medication Stabilization, Monitor Med Effects, No Suicidal/Evaristo. ideation, Prevent Deterioration, Promote Coping Skill Short Term Goals in Patient's: Roger Bernstein, "Get me home." Interventions/Frequency Staff Interventions/Frequency&: Nursing to provide routine safety checks, medication administration, and adl support. Psychiatry to see three times weekly. SW to see twice weekly. PT/OT eval and tx as indicated. SW and recreational therapy as Amandeep will be involved. 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 Social: Amandeep has enjoyed quail hunting and being outdoors. Education: Amandeep graduated from high school. Community Follow-up PCP Out patient psychiatry and counseling if available Community Provider/Family Inpu: Team meeting was held on 03/31/21. entry level buyer of treatment plan was completed on 04/01/21. Lorna, daughter/ROMEA, was involved via phone in team meeting on 03/31/21. Treatment Plan Explained Patient/Auto Care Center Manager had this treatment plan explained to him/her as indicated by the signature below and has been given the opportunity to ask questions and make suggestions: Date: Patient/Auto Care Center Manager Signature: Status Update Update WEEKLY NOTE/UPDATE: Santosh is averaging 50% of meal intakes and eight hours of sleep at night. He continues on Megace for appetite stimulant. Santosh attended one group activity in the past week and needs encouragement to be up and out of bed. He has attended meals in the dining room daily. Santosh can be impatient with waiting for staff to assist him to get back into bed. Santosh is receiving Wellbutrin, Abilify, and Remeron for depression. D/C is being coordinated for his return to [facility] on 04/16/21. SW will contact [facility] to arrange out patient mental health services. SUSY Rothman/daughter, participated in team meeting via phone this date. COLETTE BARRAZA Apr 14, 2021 14:05
--- NOTE | 2021-04-14 14:14 | NUR ---
Nursing note: Patient in dinning room for morning medication and assessment. He is compliant with taking medications crushed/floated in pudding. He is A/O X 3, unable to report situation. Patient can be rude, demanding, confused, irritable, withdrawn and isolative. He participated in group this morning. Patient denies having any pain/discomfort at this time. He propels self through unit and bedroom in w/c, requires a stand by assist with transfers. He is currently laying in bed with eyes closed. Will continue to monitor.
--- NOTE | 2021-04-14 15:09 | NUR ---
Team meeting was held on this date and SUSY Rothman, was involved via phone. Santosh will d/c to [facility] on 04/16/21. Valery, [place] nurse natural science manager, will call CESAR back with pharmacy picking technician time. CESAR left message at [facility] [place] with the intention of inquiring about out patient counseling and psychiatry for follow up. Awaiting return call. CESAR attempted to see Santosh who was sleeping on both attempts. Addendum: 04/14/21 at 1551 by COLETTE GUERRERO CESAR met with Santosh and updated on above. Santosh is looking forward to returning to [place] and agreed he would continue rehab sessions once he returned there. Santosh spoke about his children, childhood, and other memories throughout his life. He was tearful at times while reminiscing. Santosh thanked CESAR for update and visit.
[2021-04-14 15:26] VITALS: BP 131/53
[2021-04-14] MEDS: ARIPiprazole 5 MG TABLET PO SCH (20:20)
[2021-04-14] MEDS: ATORVASTATIN CALCIUM 20 MG TABLET PO SCH (20:20)
[2021-04-14] MEDS: MIRTAZAPINE 15 MG TABLET PO SCH (20:21)
--- NOTE | 2021-04-14 21:49 | PDOC ---
Exam Note: Jareth Note: This note is a late entry for 04/12/2021 covers elements not covered in my initial note. Subjective: The patient was seen individually in the evening of 04/12/2021 with Javier JIANG, discussed and reviewed the chart. The patient slept 8-3/4 hours previous night. Overall the patient remains somewhat withdrawn, oriented to himself and situation, otherwise, doing about the same per nursing report. He remains anxious, restless, constantly moving cant wait for help per nursing staff. He is often trying to transfer himself on the wheelchair to the bed and is a fall risk. I addressed this with him at some length. He dropped himself to the floor earlier in the day. Review of Systems: No CV, , pulmonary, eye, ENT system symptoms on review. Ambulation impaired in wheelchair. Mental Status Exam: The patient is oriented to himself and situation. He was seen in the hallway. He is always wanting to get back to his room and I addressed that he should spend more time around others and with activities to stimulate his mind. Speech has some latency, coherent. Abstraction fair. Computation impaired. Language function intact. Mood and affect somewhat withdrawn. No suicidal or homicidal ideation. Laboratory Data: Reviewed. Impression: Major depressive disorder, recurrent, severe. Mild cognitive impairment. Anxiety disorder unspecified. Impulse control disorder unspecified. Plan: Continue psychotropics from initial note. Assessment: Vital Signs/I&O: Vital Signs Date Time Temp Pulse Resp B/P (MAP) Pulse Ox O2 Delivery O2 Flow Rate FiO2 04/14/21 17:18 85 131/53 04/14/21 15:26 98.2 18 98 04/13/21 16:07 Room Air I & O 04/13/21 04/13/21 04/14/21 15:00 23:00 07:00 Intake Total 120 ml 240 ml Balance 120 ml 240 ml Labs: Laboratory Tests Test 04/14/21 07:24 04/14/21 11:18 04/14/21 16:35 04/14/21 20:02 Glucose (Fingerstick) 94 mg/dL (70-99) 158 mg/dL (70-99) H 72 mg/dL (70-99) 149 mg/dL (70-99) H Current Medications: Meds: Laboratory Tests Test 04/14/21 07:24 04/14/21 11:18 04/14/21 16:35 04/14/21 20:02 Glucose (Fingerstick) 94 mg/dL 158 mg/dL 72 mg/dL 149 mg/dL Current Medications Medications (Trade) Dose Ordered Sig/Komal Route PRN Reason Start Time Stop Time Status Last Admin Dose Admin Acetaminophen (Tylenol) 650 mg PRN Q6HRS PRN PO MILD PAIN / TEMP > 100.3'F 03/28/21 15:00 03/29/21 16:01 DC Multi-Ingredient Ointment (Analgesic [place]) 1 peggy PRN QID PRN TP MUSCLE PAIN 03/28/21 15:00 Al Hydroxide/Mg Hydroxide (Mylanta Plus Xs) 15 ml PRN AFTMEALHC PRN PO DYSPEPSIA 03/28/21 15:00 Magnesium Hydroxide (Milk Of Magnesia) 2,400 mg PRN QHS PRN PO 2nd choice CONSTIPATION 03/28/21 15:00 04/13/21 19:58 Acetaminophen (Tylenol) 650 mg TID PO 03/28/21 21:00 03/29/21 16:01 DC 03/29/21 08:59 Aspirin (Aspirin Chewable) 81 mg DAILY PO 03/29/21 09:00 04/14/21 08:28 Carvedilol (Coreg) 6.25 mg BIDWMEALS PO 03/28/21 17:00 04/14/21 17:18 Vitamin D (Vitamin D3) 2,000 unit DAILY PO 03/29/21 09:00 04/14/21 08:29 Cyanocobalamin (Vitamin B-12) 1,000 mcg QMONTH IM 04/09/21 09:00 04/09/21 09:43 Divalproex Sodium (Depakote Sprinkles) 250 mg BID PO 03/28/21 21:00 04/08/21 19:46 DC 04/08/21 08:28 Fluticasone Propionate (Flonase) 2 spray DAILY NS 03/29/21 09:00 03/29/21 16:01 DC 03/29/21 08:58 Hydralazine HCl (Apresoline) 10 mg PRN Q8HRS PRN PO HYPERTENSION 03/28/21 16:00 Losartan Potassium (Cozaar) 50 mg DAILY PO 03/29/21 09:00 04/06/21 16:31 DC 04/06/21 09:23 Megestrol Acetate (Megace Oral Susp) 400 mg BIDWBKFT/URIEL PO 03/29/21 08:00 04/14/21 12:14 Mirtazapine (Remeron) 15 mg QHS PO 03/28/21 21:00 04/14/21 20:21 Polyethylene Glycol (miraLAX) 17 gm PRN Q12HR PRN PO 1st choice CONSTIPATION 03/28/21 16:00 04/14/21 08:31 Sennosides (Senna) 8.6 mg PRN Q12HR PRN PO 3rd choice CONSTIPATION 03/28/21 16:00 04/14/21 20:21 Ticagrelor (Brilinta) 90 mg BID PO 03/28/21 21:00 04/14/21 20:21 Atorvastatin Calcium (Lipitor) 40 mg QHS PO 03/28/21 21:00 04/14/21 20:20 Insulin Human Lispro (HumaLOG) 10 units DAILYWSUP PRN SQ IF PT EATS >/= 25% OF NGOZI MEAL 03/28/21 16:15 03/29/21 11:54 DC Insulin Human Lispro (HumaLOG) 13 units BIDACBL SQ 03/29/21 07:30 03/29/21 11:56 DC Insulin Glargine (Lantus Syringe) 35 unit DAILYWBKFT SQ 03/29/21 08:00 04/14/21 09:40 Multivitamins/ Calcium (Thera-M Plus) 1 tab DAILY PO 03/29/21 09:00 04/14/21 08:29 Ondansetron HCl (Zofran Odt) 4 mg PRN Q12HR PRN PO NAUSEA/VOMITING 03/28/21 16:15 Insulin Human Lispro (HumaLOG) 10 units DAILYWSUP SQ 03/29/21 17:00 04/13/21 17:37 Insulin Human Lispro (HumaLOG) 13 units BIDWBKFT/URIEL SQ 03/29/21 12:00 04/14/21 12:13 Acetaminophen (Tylenol) 650 mg PRN TID PRN PO MILD PAIN / TEMP > 100.3'F 03/29/21 16:00 Fluticasone Propionate (Flonase) 2 spray PRN DAILY PRN NS ALLERGIES 03/29/21 16:00 Bupropion HCl (Wellbutrin Xl) 150 mg DAILY PO 03/30/21 09:00 03/30/21 20:20 DC Bupropion HCl (Wellbutrin Xl) 300 mg DAILY PO 04/02/21 09:00 03/30/21 20:20 DC Bupropion HCl (Wellbutrin) 75 mg 0900,1200 PO 03/31/21 09:00 04/02/21 14:00 DC 04/02/21 12:37 Bupropion HCl (Wellbutrin) 150 mg 0900 PO 04/02/21 09:00 04/01/21 17:59 DC Bupropion HCl (Wellbutrin) 75 mg NOON PO 04/03/21 12:00 04/05/21 21:00 DC 04/05/21 12:09 Bupropion HCl (Wellbutrin) 150 mg 0900 PO 04/03/21 09:00 04/07/21 09:01 DC 04/07/21 08:27 Bupropion HCl (Wellbutrin Xl) 150 mg 1200 PO 04/06/21 12:00 04/07/21 06:27 DC 04/06/21 12:08 Losartan Potassium (Cozaar) 100 mg DAILY PO 04/06/21 16:30 04/13/21 11:24 DC 04/13/21 09:08 Bupropion HCl (Wellbutrin) 300 mg DAILY PO 04/08/21 09:00 04/14/21 08:29 Bupropion HCl (Wellbutrin) 150 mg DAILY@1200 PO 04/07/21 12:00 04/14/21 12:14 Aripiprazole (Abilify) 2 mg DAILY PO 04/10/21 09:00 04/11/21 17:55 DC 04/11/21 08:09 Aripiprazole (Abilify) 5 mg HS PO 04/12/21 21:00 04/14/21 20:20 Aripiprazole (Abilify) 3 mg 1X ONCE PO 04/11/21 21:00 04/11/21 21:01 DC 04/11/21 20:52 I have reviewed the current psychotropics carefully including drug interactions. Risk benefit ratio favors no change other than as noted in my dictated progress note. Diagnosis: Problems: (1) Major depressive disorder, recurrent, severe with psychotic features (2) Mild cognitive impairment (3) Anxiety disorder, unspecified (4) Impulse control disorder, unspecified FREDDY SHEARER MD Apr 14, 2021 21:49
--- NOTE | 2021-04-14 22:22 | NUR ---
Patient is grouchy and irritable tonight. He initially refused to take his medications, stating that nurse had been "opening his door and disturbing him all night". When this nurse told patient that it was only just now 2029, he agreed to take medications but then wanted nurse to leave the room and turn the light off. Patient compliant with medications taken crushed in vanilla pudding. PRN senna given as patient has not had a documented bowel movement since 04/11. He has hypoactive bowel sounds, denies abdominal pain when asked. Patient has history of neurogenic bowel. Will continue to monitor patient for bowel movement tonight.
--- NOTE | 2021-04-14 22:25 | PDOC ---
Exam Note: Jareth Note: This note is a late entry for 04/13/2021 covers elements not covered in my initial note. Subjective: The patient was seen individually in the evening of 04/13/2021 with Javier JIANG, discussed and reviewed the chart. The patient slept 7-1/2 hours previous night. He has been somewhat withdrawn. He is not dropping himself to the floor. Review of Systems: No CV, , pulmonary, eye, ENT system symptoms on review. Impaired ambulation. Mental Status Exam: The patient is oriented to himself and situation. Speech coherent. Abstraction fair. Computation impaired. Language function intact. Mood and affect somewhat withdrawn. No suicidal or homicidal ideation. Laboratory Data: Reviewed. Impression: Major depressive disorder, recurrent, severe. Mild cognitive impairment. Anxiety disorder unspecified. Impulse control disorder unspecified. Plan: Continue psychotropics from initial note. Assessment: Vital Signs/I&O: Vital Signs Date Time Temp Pulse Resp B/P (MAP) Pulse Ox O2 Delivery O2 Flow Rate FiO2 04/14/21 17:18 85 131/53 04/14/21 15:26 98.2 18 98 04/13/21 16:07 Room Air I & O0 04/13/21 04/13/21 04/14/21 15:00 23:00 07:00 Intake Total 120 ml 240 ml Balance 120 ml 240 ml Labs: Laboratory Tests Test 04/14/21 07:24 04/14/21 11:18 04/14/21 16:35 04/14/21 20:02 Glucose (Fingerstick) 94 mg/dL (70-99) 158 mg/dL (70-99) H 72 mg/dL (70-99) 149 mg/dL (70-99) H Current Medications: Meds: Laboratory Tests Test 04/14/21 07:24 04/14/21 11:18 04/14/21 16:35 04/14/21 20:02 Glucose (Fingerstick) 94 mg/dL 158 mg/dL 72 mg/dL 149 mg/dL Current Medications Medications (Trade) Dose Ordered Sig/Komal Route PRN Reason Start Time Stop Time Status Last Admin Dose Admin Acetaminophen (Tylenol) 650 mg PRN Q6HRS PRN PO MILD PAIN / TEMP > 100.3'F 03/28/21 15:00 03/29/21 16:01 DC Multi-Ingredient Ointment (Analgesic [place]) 1 peggy PRN QID PRN TP MUSCLE PAIN 03/28/21 15:00 Al Hydroxide/Mg Hydroxide (Mylanta Plus Xs) 15 ml PRN AFTMEALHC PRN PO DYSPEPSIA 03/28/21 15:00 Magnesium Hydroxide (Milk Of Magnesia) 2,400 mg PRN QHS PRN PO 2nd choice CONSTIPATION 03/28/21 15:00 04/13/21 19:58 Acetaminophen (Tylenol) 650 mg TID PO 03/28/21 21:00 03/29/21 16:01 DC 03/29/21 08:59 Aspirin (Aspirin Chewable) 81 mg DAILY PO 03/29/21 09:00 04/14/21 08:28 Carvedilol (Coreg) 6.25 mg BIDWMEALS PO 03/28/21 17:00 04/14/21 17:18 Vitamin D (Vitamin D3) 2,000 unit DAILY PO 03/29/21 09:00 04/14/21 08:29 Cyanocobalamin (Vitamin B-12) 1,000 mcg QMONTH IM 04/09/21 09:00 04/09/21 09:43 Divalproex Sodium (Depakote Sprinkles) 250 mg BID PO 03/28/21 21:00 04/08/21 19:46 DC 04/08/21 08:28 Fluticasone Propionate (Flonase) 2 spray DAILY NS 03/29/21 09:00 03/29/21 16:01 DC 03/29/21 08:58 Hydralazine HCl (Apresoline) 10 mg PRN Q8HRS PRN PO HYPERTENSION 03/28/21 16:00 Losartan Potassium (Cozaar) 50 mg DAILY PO 03/29/21 09:00 04/06/21 16:31 DC 04/06/21 09:23 Megestrol Acetate (Megace Oral Susp) 400 mg BIDWBKFT/URIEL PO 03/29/21 08:00 04/14/21 12:14 Mirtazapine (Remeron) 15 mg QHS PO 03/28/21 21:00 04/14/21 20:21 Polyethylene Glycol (miraLAX) 17 gm PRN Q12HR PRN PO 1st choice CONSTIPATION 03/28/21 16:00 11/15/21 08:31 Sennosides (Senna) 8.6 mg PRN Q12HR PRN PO 3rd choice CONSTIPATION 03/28/21 16:00 04/14/21 20:21 Ticagrelor (Brilinta) 90 mg BID PO 03/28/21 21:00 04/14/21 20:21 Atorvastatin Calcium (Lipitor) 40 mg QHS PO 03/28/21 21:00 04/14/21 20:20 Insulin Human Lispro (HumaLOG) 10 units DAILYWSUP PRN SQ IF PT EATS >/= 25% OF NGOZI MEAL 03/28/21 16:15 03/29/21 11:54 DC Insulin Human Lispro (HumaLOG) 13 units BIDACBL SQ 03/29/21 07:30 03/29/21 11:56 DC Insulin Glargine (Lantus Syringe) 35 unit DAILYWBKFT SQ 03/29/21 08:00 04/14/21 09:40 Multivitamins/ Calcium (Thera-M Plus) 1 tab DAILY PO 03/29/21 09:00 04/14/21 08:29 Ondansetron HCl (Zofran Odt) 4 mg PRN Q12HR PRN PO NAUSEA/VOMITING 03/28/21 16:15 Insulin Human Lispro (HumaLOG) 10 units DAILYWSUP SQ 03/29/21 17:00 04/13/21 17:37 Insulin Human Lispro (HumaLOG) 13 units BIDWBKFT/URIEL SQ 03/29/21 12:00 04/14/21 12:13 Acetaminophen (Tylenol) 650 mg PRN TID PRN PO MILD PAIN / TEMP > 100.3'F 03/29/21 16:00 Fluticasone Propionate (Flonase) 2 spray PRN DAILY PRN NS ALLERGIES 03/29/21 16:00 Bupropion HCl (Wellbutrin Xl) 150 mg DAILY PO 03/30/21 09:00 03/30/21 20:20 DC Bupropion HCl (Wellbutrin Xl) 300 mg DAILY PO 04/02/21 09:00 03/30/21 20:20 DC Bupropion HCl (Wellbutrin) 75 mg 0900,1200 PO 03/31/21 09:00 04/02/21 14:00 DC 04/02/21 12:37 Bupropion HCl (Wellbutrin) 150 mg 0900 PO 04/02/21 09:00 04/01/21 17:59 DC Bupropion HCl (Wellbutrin) 75 mg NOON PO 04/03/21 12:00 04/05/21 21:00 DC 04/05/21 12:09 Bupropion HCl (Wellbutrin) 150 mg 0900 PO 04/03/21 09:00 04/07/21 09:01 DC 04/07/21 08:27 Bupropion HCl (Wellbutrin Xl) 150 mg 1200 PO 04/06/21 12:00 04/07/21 06:27 DC 04/06/21 12:08 Losartan Potassium (Cozaar) 100 mg DAILY PO 04/06/21 16:30 04/13/21 11:24 DC 04/13/21 09:08 Bupropion HCl (Wellbutrin) 300 mg DAILY PO 04/08/21 09:00 04/14/21 08:29 Bupropion HCl (Wellbutrin) 150 mg DAILY@1200 PO 04/07/21 12:00 04/14/21 12:14 Aripiprazole (Abilify) 2 mg DAILY PO 04/10/21 09:00 04/11/21 17:55 DC 04/11/21 08:09 Aripiprazole (Abilify) 5 mg HS PO 04/12/21 21:00 04/14/21 20:20 Aripiprazole (Abilify) 3 mg 1X ONCE PO 04/11/21 21:00 04/11/21 21:01 DC 04/11/21 20:52 I have reviewed the current psychotropics carefully including drug interactions. Risk benefit ratio favors no change other than as noted in my dictated progress note. Diagnosis: Problems: (1) Major depressive disorder, recurrent, severe with psychotic features (2) Mild cognitive impairment (3) Anxiety disorder, unspecified (4) Impulse control disorder, unspecified FREDDY SHEARER MD Apr 14, 2021 22:25
[2021-04-15] MEDS ORDERED: ARIP5TAB13 PO (03:01)
[2021-04-15] MEDS ORDERED: CHOL10004 PO (03:06)
[2021-04-15] MEDS ORDERED: MAG-124 PO (03:14)
[2021-04-15] MEDS ORDERED: MAGN24003 PO (03:15)
[2021-04-15] MEDS ORDERED: METH57CR17 TP (03:15)
[2021-04-15] MEDS ORDERED: BUPR100T11 PO (03:16)
[2021-04-15] MEDS ORDERED: BUPR150T11 PO (03:21)
[2021-04-15] MEDS ORDERED: BUPR150T8 PO (03:23)
[2021-04-15] MEDS ORDERED: BUPR75TA6 PO (03:25)
[2021-04-15 06:12] VITALS: BP 162/82
[2021-04-15] MEDS: INSULIN LISPRO 300 UNITS/3 ML VIAL. SQ SCH ×3 (08:00→17:00)
[2021-04-15] MEDS: buPROPion 100 MG TABLET. PO SCH (08:25)
[2021-04-15] MEDS: SENNOSIDES 8.6 MG TABLET PO PRN (08:25)
[2021-04-15] MEDS: POLYETHYLENE GLYCOL 3350 17 GM PACKET. PO PRN (08:25)
[2021-04-15] MEDS: TICAGRELOR 90 MG TABLET. PO SCH ×2 (08:25→20:03)
[2021-04-15] MEDS: CARVEDILOL 6.25 MG TABLET PO SCH ×2 (08:25→17:01)
[2021-04-15] MEDS: MULTIVITAMIN with MINERAL TABLET. PO SCH (08:26)
[2021-04-15] MEDS: ASPIRIN CHEWABLE 81 MG TABLET. PO SCH (08:26)
[2021-04-15] MEDS: MEGESTROL 400 MG/10 ML ORAL.SUSP. PO SCH ×2 (08:26→12:00)
[2021-04-15] MEDS: CHOLECALCIFEROL (VITAMIN D3) 1,000 UNIT TABLET PO SCH (08:26)
[2021-04-15] MEDS: INSULIN GLARGINE SYRINGE. SQ SCH (08:58)
[2021-04-15] MEDS: buPROPion 75 MG TABLET PO SCH (12:00)
--- NOTE | 2021-04-15 12:37 | NUR ---
[facility] Social Work Discharge Planning Form Patient Name SANTOSH JONES Admit Date: 03/28/21 DISCHARGE PLAN Discharge Destination: [facility] Care Assessment: Previously completed Transportation: [facility] will transport on 04/16/21 at 10am. Special Instructions/Notes: Upon return to [facility], schedule f/u appointment with house physician within 7-10 days. Santosh has an intake appointment at [facility] office, on 05/06/2021 at 11am. DISCHARGE TO FACILITY Facility: [facility] Address: [address] [facility] [address] Contact Name: Valery Pedraza, nurse manager special events Name: CESAR Sullivan PCP: Dr. Ivory [phone], (fax) Psychiatrist: Gayla [phone], (fax)
--- NOTE | 2021-04-15 13:13 | NUR ---
Faxed current notes, labs, and medication list to [facility] for review. Call placed to Lorna, daughter/POA, to provide update on d/c arrangements.
[2021-04-15] MEDS ORDERED: MAGNESIUM CITRATE 296 ML SOLUTION. PO ONE (14:45)
[2021-04-15 15:43] VITALS: BP 105/59
[2021-04-15] MEDS: MIRTAZAPINE 15 MG TABLET PO SCH (20:03)
[2021-04-15] MEDS: ARIPiprazole 5 MG TABLET PO SCH (20:03)
[2021-04-15] MEDS: ATORVASTATIN CALCIUM 20 MG TABLET PO SCH (20:03)
--- NOTE | 2021-04-15 20:52 | PDOC ---
Exam Note: Jareth Note: Please also refer to the separate dictated note~for this date of service dictated separately.~Patient seen individually. Discussed the patient with Nursing staff reviewed the chart.~Reviewed interim history and current functioning. Reviewed vital signs,~Labs/ Radiology~and current medications noted below. Continue current treatment with the changes noted in the dictated addendum note Assessment: Vital Signs/I&O: Vital Signs Date Time Temp Pulse Resp B/P (MAP) Pulse Ox O2 Delivery O2 Flow Rate FiO2 04/15/21 17:01 88 105/59 04/15/21 15:43 98.9 20 95 04/13/21 16:07 Room Air I & O 04/14/21 04/14/21 04/15/21 15:00 23:00 07:00 Intake Total 480 ml 240 ml 100 ml Balance 480 ml 240 ml 100 ml Labs: Laboratory Tests Test 04/15/21 07:16 04/15/21 12:02 04/15/21 16:51 04/15/21 20:26 Glucose (Fingerstick) 75 mg/dL (70-99) 154 mg/dL (70-99) H 69 mg/dL (70-99) L 160 mg/dL (70-99) H Current Medications: Meds: Laboratory Tests Test 04/15/21 07:16 04/15/21 12:02 04/15/21 16:51 04/15/21 20:26 Glucose (Fingerstick) 75 mg/dL 154 mg/dL 69 mg/dL 160 mg/dL Current Medications Medications (Trade) Dose Ordered Sig/Komal Route PRN Reason Start Time Stop Time Status Last Admin Dose Admin Acetaminophen (Tylenol) 650 mg PRN Q6HRS PRN PO MILD PAIN / TEMP > 100.3'F 03/28/21 15:00 03/29/21 16:01 DC Multi-Ingredient Ointment (Analgesic [place]) 1 peggy PRN QID PRN TP MUSCLE PAIN 03/28/21 15:00 Al Hydroxide/Mg Hydroxide (Mylanta Plus Xs) 15 ml PRN AFTMEALHC PRN PO DYSPEPSIA 03/28/21 15:00 Magnesium Hydroxide (Milk Of Magnesia) 2,400 mg PRN QHS PRN PO 2nd choice CONSTIPATION 03/28/21 15:00 04/13/21 19:58 Acetaminophen (Tylenol) 650 mg TID PO 03/28/21 21:00 03/29/21 16:01 DC 03/29/21 08:59 Aspirin (Aspirin Chewable) 81 mg DAILY PO 03/29/21 09:00 04/15/21 08:26 Carvedilol (Coreg) 6.25 mg BIDWMEALS PO 03/28/21 17:00 04/15/21 17:01 Vitamin D (Vitamin D3) 2,000 unit DAILY PO 03/29/21 09:00 04/15/21 08:26 Cyanocobalamin (Vitamin B-12) 1,000 mcg QMONTH IM 04/09/21 09:00 04/09/21 09:43 Divalproex Sodium (Depakote Sprinkles) 250 mg BID PO 03/28/21 21:00 04/08/21 19:46 DC 04/08/21 08:28 Fluticasone Propionate (Flonase) 2 spray DAILY NS 03/29/21 09:00 03/29/21 16:01 DC 03/29/21 08:58 Hydralazine HCl (Apresoline) 10 mg PRN Q8HRS PRN PO HYPERTENSION 03/28/21 16:00 Losartan Potassium (Cozaar) 50 mg DAILY PO 03/29/21 09:00 04/06/21 16:31 DC 04/06/21 09:23 Megestrol Acetate (Megace Oral Susp) 400 mg BIDWBKFT/RUIEL PO 03/29/21 08:00 04/15/21 12:00 Mirtazapine (Remeron) 15 mg QHS PO 03/28/21 21:00 04/15/21 20:03 Polyethylene Glycol (miraLAX) 17 gm PRN Q12HR PRN PO 1st choice CONSTIPATION 03/28/21 16:00 04/15/21 08:25 Sennosides (Senna) 8.6 mg PRN Q12HR PRN PO 3rd choice CONSTIPATION 03/28/21 16:00 04/15/21 08:25 Ticagrelor (Brilinta) 90 mg BID PO 03/28/21 21:00 04/15/21 20:03 Atorvastatin Calcium (Lipitor) 40 mg QHS PO 03/28/21 21:00 04/15/21 20:03 Insulin Human Lispro (HumaLOG) 10 units DAILYWSUP PRN SQ IF PT EATS >/= 25% OF NGOZI MEAL 03/28/21 16:15 03/29/21 11:54 DC Insulin Human Lispro (HumaLOG) 13 units BIDACBL SQ 03/29/21 07:30 03/29/21 11:56 DC Insulin Glargine (Lantus Syringe) 35 unit DAILYWBKFT SQ 03/29/21 08:00 04/15/21 08:58 Multivitamins/ Calcium (Thera-M Plus) 1 tab DAILY PO 03/29/21 09:00 04/15/21 08:26 Ondansetron HCl (Zofran Odt) 4 mg PRN Q12HR PRN PO NAUSEA/VOMITING 03/28/21 16:15 Insulin Human Lispro (HumaLOG) 10 units DAILYWSUP SQ 03/29/21 17:00 04/13/21 17:37 Insulin Human Lispro (HumaLOG) 13 units BIDWBKFT/URIEL SQ 03/29/21 12:00 04/15/21 12:00 Acetaminophen (Tylenol) 650 mg PRN TID PRN PO MILD PAIN / TEMP > 100.3'F 03/29/21 16:00 Fluticasone Propionate (Flonase) 2 spray PRN DAILY PRN NS ALLERGIES 03/29/21 16:00 Bupropion HCl (Wellbutrin Xl) 150 mg DAILY PO 03/30/21 09:00 03/30/21 20:20 DC Bupropion HCl (Wellbutrin Xl) 300 mg DAILY PO 04/02/21 09:00 03/30/21 20:20 DC Bupropion HCl (Wellbutrin) 75 mg 0900,1200 PO 03/31/21 09:00 04/02/21 14:00 DC 04/02/21 12:37 Bupropion HCl (Wellbutrin) 150 mg 0900 PO 04/02/21 09:00 04/01/21 17:59 DC Bupropion HCl (Wellbutrin) 75 mg NOON PO 04/03/21 12:00 04/05/21 21:00 DC 04/05/21 12:09 Bupropion HCl (Wellbutrin) 150 mg 0900 PO 04/03/21 09:00 04/07/21 09:01 DC 04/07/21 08:27 Bupropion HCl (Wellbutrin Xl) 150 mg 1200 PO 04/06/21 12:00 04/07/21 06:27 DC 04/06/21 12:08 Losartan Potassium (Cozaar) 100 mg DAILY PO 04/06/21 16:30 04/13/21 11:24 DC 04/13/21 09:08 Bupropion HCl (Wellbutrin) 300 mg DAILY PO 04/08/21 09:00 04/15/21 08:25 Bupropion HCl (Wellbutrin) 150 mg DAILY@1200 PO 04/07/21 12:00 04/15/21 12:00 Aripiprazole (Abilify) 2 mg DAILY PO 04/10/21 09:00 04/11/21 17:55 DC 04/11/21 08:09 Aripiprazole (Abilify) 5 mg HS PO 04/12/21 21:00 04/15/21 20:03 Aripiprazole (Abilify) 3 mg 1X ONCE PO 04/11/21 21:00 04/11/21 21:01 DC 04/11/21 20:52 Magnesium Citrate (Citroma) 296 ml 1X ONCE PO 04/15/21 14:45 04/15/21 14:46 DC 04/15/21 17:44 Current Medications Medications (Trade) Dose Ordered Sig/Komal Route PRN Reason Start Time Stop Time Status Last Admin Dose Admin Magnesium Citrate (Citroma) 296 ml 1X ONCE PO 04/15/21 14:45 04/15/21 14:46 DC 04/15/21 17:44 I have reviewed the current psychotropics carefully including drug interactions. Risk benefit ratio favors no change other than as noted in my dictated progress note. Diagnosis: Problems: (1) Mild cognitive impairment (2) Anxiety disorder, unspecified (3) Impulse control disorder, unspecified (4) MDD (major depressive disorder) FREDDY SHEARER MD Apr 15, 2021 20:52
--- NOTE | 2021-04-15 21:57 | NUR ---
Patient was in bed, asleep when nurse entered room to give HS medications. He woke up easily and was cooperative with assessment and compliant with medications taken crushed in pudding. Per day nurse, patient was given Mag Citrate for constipation at 1745. patient has active bowel signs at this time, denies tenderness, and has not produced a bowel movement this shift. Patient told nurse he is "going home in the morning". He stated he is excited to leave this place. Patient returned to sleep after nurse left room. Will continue to monitor.
[2021-04-16 05:57] VITALS: BP 147/79
--- NOTE | 2021-04-16 06:54 | PDOC ---
Exam Note: Jareth Note: This note is a late entry for 04/14/2021 covers elements not covered in my initial note. Subjective: The patient was reviewed at treatment team meeting individually in the morning on 04/14/2021 with Natalie Rashid, Bina Rasmussen, and Janee Nielsen (transition social worker), Alysia, activity therapy, Lizzy JIANG, Stand Up Comedian, and Dorcas JIANG, discussed and reviewed the chart. We discussed the patients diagnoses, progress, current psychotropics, outpatient treatment including possible visits with psychologists and behavioral interventions to encourage him to get out of his room at the nursing facility. The patient slept 9-1/2 hours previous night. Patients son Sheri and daughter Lorna attended the treatment team meeting. On 04/13 the patient had a drop in his blood pressure and Dr. Reich started him on Losartan. He is continued on Coreg. His appetite varies. He has attended one group. Discussed with Tricia JIANG in the evening. He put himself on the floor x1 while getting into the bathroom. No injury noted. Review of Systems: No CV, , pulmonary, eye, ENT system symptoms on review. Impaired ambulation in wheelchair. Positive for constipation. Mental Status Exam: The patient is alert and oriented to himself. He was seated in the hallway as I entered. He was anxious, restless, wanting to get into bed. Speech coherent. Abstraction fair. Computation impaired. Language function intact. Mood and affect withdrawn. No suicidal or homicidal ideation. Laboratory Data: Reviewed. Impression: Major depressive disorder, recurrent, severe. Mild cognitive impairment. Anxiety disorder unspecified. Impulse control disorder unspecified. Plan: Continue psychotropics from initial note. Assessment: Vital Signs/I&O: Vital Signs Date Time Temp Pulse Resp B/P (MAP) Pulse Ox O2 Delivery O2 Flow Rate FiO2 04/16/21 05:57 98.1 80 20 147/79 (101) 96 04/13/21 16:07 Room Air I & O 04/15/21 04/15/21 04/16/21 14:59 22:59 06:59 Intake Total 860 ml 250 ml Balance 860 ml 250 ml Labs: Laboratory Tests Test 04/15/21 07:16 04/15/21 12:02 04/15/21 16:51 04/15/21 20:26 Glucose (Fingerstick) 75 mg/dL (70-99) 154 mg/dL (70-99) H 69 mg/dL (70-99) L 160 mg/dL (70-99) H Current Medications: Meds: Laboratory Tests Test 04/15/21 07:16 04/15/21 12:02 04/15/21 16:51 04/15/21 20:26 Glucose (Fingerstick) 75 mg/dL 154 mg/dL 69 mg/dL 160 mg/dL Current Medications Medications (Trade) Dose Ordered Sig/Komal Route PRN Reason Start Time Stop Time Status Last Admin Dose Admin Acetaminophen (Tylenol) 650 mg PRN Q6HRS PRN PO MILD PAIN / TEMP > 100.3'F 03/28/21 15:00 03/29/21 16:01 DC Multi-Ingredient Ointment (Analgesic [place]) 1 peggy PRN QID PRN TP MUSCLE PAIN 03/28/21 15:00 Al Hydroxide/Mg Hydroxide (Mylanta Plus Xs) 15 ml PRN AFTMEALHC PRN PO DYSPEPSIA 03/28/21 15:00 Magnesium Hydroxide (Milk Of Magnesia) 2,400 mg PRN QHS PRN PO 2nd choice CONSTIPATION 03/28/21 15:00 04/13/21 19:58 Acetaminophen (Tylenol) 650 mg TID PO 03/28/21 21:00 03/29/21 16:01 DC 03/29/21 08:59 Aspirin (Aspirin Chewable) 81 mg DAILY PO 03/29/21 09:00 04/15/21 08:26 Carvedilol (Coreg) 6.25 mg BIDWMEALS PO 03/28/21 17:00 04/15/21 17:01 Vitamin D (Vitamin D3) 2,000 unit DAILY PO 03/29/21 09:00 04/15/21 08:26 Cyanocobalamin (Vitamin B-12) 1,000 mcg QMONTH IM 04/09/21 09:00 04/09/21 09:43 Divalproex Sodium (Depakote Sprinkles) 250 mg BID PO 03/28/21 21:00 04/08/21 19:46 DC 04/08/21 08:28 Fluticasone Propionate (Flonase) 2 spray DAILY NS 03/29/21 09:00 03/29/21 16:01 DC 03/29/21 08:58 Hydralazine HCl (Apresoline) 10 mg PRN Q8HRS PRN PO HYPERTENSION 03/28/21 16:00 Losartan Potassium (Cozaar) 50 mg DAILY PO 03/29/21 09:00 04/06/21 16:31 DC 04/06/21 09:23 Megestrol Acetate (Megace Oral Susp) 400 mg BIDWBKFT/URIEL PO 03/29/21 08:00 04/15/21 12:00 Mirtazapine (Remeron) 15 mg QHS PO 03/28/21 21:00 04/15/21 20:03 Polyethylene Glycol (miraLAX) 17 gm PRN Q12HR PRN PO 1st choice CONSTIPATION 03/28/21 16:00 04/15/21 08:25 Sennosides (Senna) 8.6 mg PRN Q12HR PRN PO 3rd choice CONSTIPATION 03/28/21 16:00 04/15/21 08:25 Ticagrelor (Brilinta) 90 mg BID PO 03/28/21 21:00 04/15/21 20:03 Atorvastatin Calcium (Lipitor) 40 mg QHS PO 03/28/21 21:00 04/15/21 20:03 Insulin Human Lispro (HumaLOG) 10 units DAILYWSUP PRN SQ IF PT EATS >/= 25% OF NGOZI MEAL 03/28/21 16:15 03/29/21 11:54 DC Insulin Human Lispro (HumaLOG) 13 units BIDACBL SQ 03/29/21 07:30 03/29/21 11:56 DC Insulin Glargine (Lantus Syringe) 35 unit DAILYWBKFT SQ 03/29/21 08:00 04/15/21 08:58 Multivitamins/ Calcium (Thera-M Plus) 1 tab DAILY PO 03/29/21 09:00 04/15/21 08:26 Ondansetron HCl (Zofran Odt) 4 mg PRN Q12HR PRN PO NAUSEA/VOMITING 03/28/21 16:15 Insulin Human Lispro (HumaLOG) 10 units DAILYWSUP SQ 03/29/21 17:00 04/13/21 17:37 Insulin Human Lispro (HumaLOG) 13 units BIDWBKFT/URIEL SQ 03/29/21 12:00 04/15/21 12:00 Acetaminophen (Tylenol) 650 mg PRN TID PRN PO MILD PAIN / TEMP > 100.3'F 03/29/21 16:00 Fluticasone Propionate (Flonase) 2 spray PRN DAILY PRN NS ALLERGIES 03/29/21 16:00 Bupropion HCl (Wellbutrin Xl) 150 mg DAILY PO 03/30/21 09:00 03/30/21 20:20 DC Bupropion HCl (Wellbutrin Xl) 300 mg DAILY PO 04/02/21 09:00 03/30/21 20:20 DC Bupropion HCl (Wellbutrin) 75 mg 0900,1200 PO 03/31/21 09:00 04/02/21 14:00 DC 04/02/21 12:37 Bupropion HCl (Wellbutrin) 150 mg 0900 PO 04/02/21 09:00 04/01/21 17:59 DC Bupropion HCl (Wellbutrin) 75 mg NOON PO 04/03/21 12:00 04/05/21 21:00 DC 04/05/21 12:09 Bupropion HCl (Wellbutrin) 150 mg 0900 PO 04/03/21 09:00 04/07/21 09:01 DC 04/07/21 08:27 Bupropion HCl (Wellbutrin Xl) 150 mg 1200 PO 04/06/21 12:00 04/07/21 06:27 DC 04/06/21 12:08 Losartan Potassium (Cozaar) 100 mg DAILY PO 04/06/21 16:30 04/13/21 11:24 DC 04/13/21 09:08 Bupropion HCl (Wellbutrin) 300 mg DAILY PO 04/08/21 09:00 04/15/21 08:25 Bupropion HCl (Wellbutrin) 150 mg DAILY@1200 PO 04/07/21 12:00 04/15/21 12:00 Aripiprazole (Abilify) 2 mg DAILY PO 04/10/21 09:00 04/11/21 17:55 DC 04/11/21 08:09 Aripiprazole (Abilify) 5 mg HS PO 04/12/21 21:00 04/15/21 20:03 Aripiprazole (Abilify) 3 mg 1X ONCE PO 04/11/21 21:00 04/11/21 21:01 DC 04/11/21 20:52 Magnesium Citrate (Citroma) 296 ml 1X ONCE PO 04/15/21 14:45 04/15/21 14:46 DC 04/15/21 17:44 Current Medications Medications (Trade) Dose Ordered Sig/Komal Route PRN Reason Start Time Stop Time Status Last Admin Dose Admin Magnesium Citrate (Citroma) 296 ml 1X ONCE PO 04/15/21 14:45 04/15/21 14:46 DC 04/15/21 17:44 I have reviewed the current psychotropics carefully including drug interactions. Risk benefit ratio favors no change other than as noted in my dictated progress note. Diagnosis: Problems: (1) Major depressive disorder, recurrent, severe with psychotic features (2) Mild cognitive impairment (3) Anxiety disorder, unspecified (4) Impulse control disorder, unspecified FREDDY SHEARER MD Apr 16, 2021 06:54
--- NOTE | 2021-04-16 07:50 | PDOC ---
Exam Note: Jareth Note: This note is a late entry for 04/15/2021 covers elements not covered in my initial note. Subjective: The patient was seen individually in the evening of 04/15/2021 with Tricia JIANG, discussed and reviewed the chart. The patient slept 5 hours previous night. I met with him in his room. He has not put himself on the floor. Review of Systems: No CV, , pulmonary, eye, ENT system symptoms on review. Impaired ambulation in wheelchair. Mental Status Exam: The patient is oriented to himself and situation. Speech coherent. Abstraction fair. Computation impaired. Language function intact. Mood and affect somewhat withdrawn. No suicidal or homicidal ideation. Laboratory Data: Reviewed. Impression: Major depressive disorder, recurrent, severe. Mild cognitive impairment. Anxiety disorder unspecified. Impulse control disorder unspecified. Plan: Continue psychotropics from initial note. Tentative discharge in a day or two. Assessment: Vital Signs/I&O: Vital Signs Date Time Temp Pulse Resp B/P (MAP) Pulse Ox O2 Delivery O2 Flow Rate FiO2 04/16/21 05:57 98.1 80 20 147/79 (101) 96 04/13/21 16:07 Room Air I & O 04/15/21 04/15/21 04/16/21 15:00 23:00 07:00 Intake Total 860 ml 250 ml Balance 860 ml 250 ml Labs: Laboratory Tests Test 04/15/21 12:02 04/15/21 16:51 04/15/21 20:26 04/16/21 07:27 Glucose (Fingerstick) 154 mg/dL (70-99) H 69 mg/dL (70-99) L 160 mg/dL (70-99) H 149 mg/dL (70-99) H Current Medications: Meds: Laboratory Tests Test 04/15/21 12:02 04/15/21 16:51 04/15/21 20:26 04/16/21 07:27 Glucose (Fingerstick) 154 mg/dL 69 mg/dL 160 mg/dL 149 mg/dL Current Medications Medications (Trade) Dose Ordered Sig/Komal Route PRN Reason Start Time Stop Time Status Last Admin Dose Admin Acetaminophen (Tylenol) 650 mg PRN Q6HRS PRN PO MILD PAIN / TEMP > 100.3'F 03/28/21 15:00 03/29/21 16:01 DC Multi-Ingredient Ointment (Analgesic [place]) 1 peggy PRN QID PRN TP MUSCLE PAIN 03/28/21 15:00 Al Hydroxide/Mg Hydroxide (Mylanta Plus Xs) 15 ml PRN AFTMEALHC PRN PO DYSPEPSIA 03/28/21 15:00 Magnesium Hydroxide (Milk Of Magnesia) 2,400 mg PRN QHS PRN PO 2nd choice CONSTIPATION 03/28/21 15:00 04/13/21 19:58 Acetaminophen (Tylenol) 650 mg TID PO 03/28/21 21:00 03/29/21 16:01 DC 03/29/21 08:59 Aspirin (Aspirin Chewable) 81 mg DAILY PO 03/29/21 09:00 04/15/21 08:26 Carvedilol (Coreg) 6.25 mg BIDWMEALS PO 03/28/21 17:00 04/15/21 17:01 Vitamin D (Vitamin D3) 2,000 unit DAILY PO 03/29/21 09:00 04/15/21 08:26 Cyanocobalamin (Vitamin B-12) 1,000 mcg QMONTH IM 04/09/21 09:00 04/09/21 09:43 Divalproex Sodium (Depakote Sprinkles) 250 mg BID PO 03/28/21 21:00 04/08/21 19:46 DC 04/08/21 08:28 Fluticasone Propionate (Flonase) 2 spray DAILY NS 03/29/21 09:00 03/29/21 16:01 DC 03/29/21 08:58 Hydralazine HCl (Apresoline) 10 mg PRN Q8HRS PRN PO HYPERTENSION 03/28/21 16:00 Losartan Potassium (Cozaar) 50 mg DAILY PO 03/29/21 09:00 04/06/21 16:31 DC 04/06/21 09:23 Megestrol Acetate (Megace Oral Susp) 400 mg BIDWBKFT/URIEL PO 03/29/21 08:00 04/15/21 12:00 Mirtazapine (Remeron) 15 mg QHS PO 03/28/21 21:00 04/15/21 20:03 Polyethylene Glycol (miraLAX) 17 gm PRN Q12HR PRN PO 1st choice CONSTIPATION 03/28/21 16:00 04/15/21 08:25 Sennosides (Senna) 8.6 mg PRN Q12HR PRN PO 3rd choice CONSTIPATION 03/28/21 16:00 04/15/21 08:25 Ticagrelor (Brilinta) 90 mg BID PO 03/28/21 21:00 04/15/21 20:03 Atorvastatin Calcium (Lipitor) 40 mg QHS PO 03/28/21 21:00 04/15/21 20:03 Insulin Human Lispro (HumaLOG) 10 units DAILYWSUP PRN SQ IF PT EATS >/= 25% OF NGOZI MEAL 03/28/21 16:15 03/29/21 11:54 DC Insulin Human Lispro (HumaLOG) 13 units BIDACBL SQ 03/29/21 07:30 03/29/21 11:56 DC Insulin Glargine (Lantus Syringe) 35 unit DAILYWBKFT SQ 03/29/21 08:00 04/15/21 08:58 Multivitamins/ Calcium (Thera-M Plus) 1 tab DAILY PO 03/29/21 09:00 04/15/21 08:26 Ondansetron HCl (Zofran Odt) 4 mg PRN Q12HR PRN PO NAUSEA/VOMITING 03/28/21 16:15 Insulin Human Lispro (HumaLOG) 10 units DAILYWSUP SQ 03/29/21 17:00 04/13/21 17:37 Insulin Human Lispro (HumaLOG) 13 units BIDWBKFT/URIEL SQ 03/29/21 12:00 04/15/21 12:00 Acetaminophen (Tylenol) 650 mg PRN TID PRN PO MILD PAIN / TEMP > 100.3'F 03/29/21 16:00 Fluticasone Propionate (Flonase) 2 spray PRN DAILY PRN NS ALLERGIES 03/29/21 16:00 Bupropion HCl (Wellbutrin Xl) 150 mg DAILY PO 03/30/21 09:00 03/30/21 20:20 DC Bupropion HCl (Wellbutrin Xl) 300 mg DAILY PO 04/02/21 09:00 03/30/21 20:20 DC Bupropion HCl (Wellbutrin) 75 mg 0900,1200 PO 03/31/21 09:00 04/02/21 14:00 DC 04/02/21 12:37 Bupropion HCl (Wellbutrin) 150 mg 0900 PO 04/02/21 09:00 04/01/21 17:59 DC Bupropion HCl (Wellbutrin) 75 mg NOON PO 04/03/21 12:00 04/05/21 21:00 DC 04/05/21 12:09 Bupropion HCl (Wellbutrin) 150 mg 0900 PO 04/03/21 09:00 04/07/21 09:01 DC 04/07/21 08:27 Bupropion HCl (Wellbutrin Xl) 150 mg 1200 PO 04/06/21 12:00 04/07/21 06:27 DC 04/06/21 12:08 Losartan Potassium (Cozaar) 100 mg DAILY PO 04/06/21 16:30 04/13/21 11:24 DC 04/13/21 09:08 Bupropion HCl (Wellbutrin) 300 mg DAILY PO 04/08/21 09:00 04/15/21 08:25 Bupropion HCl (Wellbutrin) 150 mg DAILY@1200 PO 04/07/21 12:00 04/15/21 12:00 Aripiprazole (Abilify) 2 mg DAILY PO 04/10/21 09:00 04/11/21 17:55 DC 04/11/21 08:09 Aripiprazole (Abilify) 5 mg HS PO 04/12/21 21:00 04/15/21 20:03 Aripiprazole (Abilify) 3 mg 1X ONCE PO 04/11/21 21:00 04/11/21 21:01 DC 04/11/21 20:52 Magnesium Citrate (Citroma) 296 ml 1X ONCE PO 04/15/21 14:45 04/15/21 14:46 DC 04/15/21 17:44 Current Medications Medications (Trade) Dose Ordered Sig/Komal Route PRN Reason Start Time Stop Time Status Last Admin Dose Admin Magnesium Citrate (Citroma) 296 ml 1X ONCE PO 04/15/21 14:45 04/15/21 14:46 DC 04/15/21 17:44 I have reviewed the current psychotropics carefully including drug interactions. Risk benefit ratio favors no change other than as noted in my dictated progress note. Diagnosis: Problems: (1) Major depressive disorder, recurrent, severe with psychotic features (2) Mild cognitive impairment (3) Anxiety disorder, unspecified (4) Impulse control disorder, unspecified FREDDY SHEARER MD Apr 16, 2021 07:50
[2021-04-16] MEDS: INSULIN GLARGINE SYRINGE. SQ SCH (08:00)
[2021-04-16 08:25] VITALS: BP 147/79
[2021-04-16] MEDS: buPROPion 100 MG TABLET. PO SCH (08:25)
[2021-04-16] MEDS: ASPIRIN CHEWABLE 81 MG TABLET. PO SCH (08:25)
[2021-04-16] MEDS: CHOLECALCIFEROL (VITAMIN D3) 1,000 UNIT TABLET PO SCH (08:25)
[2021-04-16] MEDS: CARVEDILOL 6.25 MG TABLET PO SCH (08:25)
[2021-04-16] MEDS: MULTIVITAMIN with MINERAL TABLET. PO SCH (08:25)
[2021-04-16] MEDS: TICAGRELOR 90 MG TABLET. PO SCH (08:26)
[2021-04-16] MEDS: MEGESTROL 400 MG/10 ML ORAL.SUSP. PO SCH (08:26)
[2021-04-16] MEDS: SENNOSIDES 8.6 MG TABLET PO PRN (08:26)
[2021-04-16] MEDS: POLYETHYLENE GLYCOL 3350 17 GM PACKET. PO PRN (08:26)
[2021-04-16] MEDS: INSULIN LISPRO 300 UNITS/3 ML VIAL. SQ SCH (08:28)
--- NOTE | 2021-04-16 10:49 | EKG ---
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
--- NOTE | 2021-04-16 11:00 | NUR ---
Nursing note: Pt was sitting in [place] waiting for his transport to arrive when pt lost color in his face and began to slide out of his chair and become unresponsive. Pt was awakened by staff with a sternal rub and he is unable to keep his eyes open. VS obtained and showed pt was hypotensive with BP of 50/21. Rapid response was called and manual BP was attempted to be obtained. Manual was unable to be obtained d/t staff repositioning pt and pt then becoming more awake and fighting the BP cuff. O2 was at 97% on RA and HR was 80. Pt was transferred to a bed and taken to [address] [place] [address] Room 111 regarding his hypotensive incident. Pt's safe items and belongings were taken downstairs with him and copy of belonging sheet was provided to [address] [place] [address]. Pt's facility was notified of pt's change in status and attempted to notify DPOA, but we were unable to get a hold of her. Will continue to attempt notify DPOA. Dr. Vora was notified of pt's status and new orders received to d/c wellbutrin and abilify. APOLINAR Lynn on [address] [place] [address] Vora's orders.
--- NOTE | 2021-04-16 11:05 | NUR ---
Transition Record was faxed to follow-up provider with the following elements: Reason for admission, procedures, tests, principal diagnosis, pending studies, patient instructions, 21/12 contact information for unit, phone number to obtain pending test results, plan for follow-up care, physician follow-up, advanced directive information, and medication list with dose, duration and instructions. This information was included in the following documents: History and physical, lab results, study results, progress notes, social work planning form, DC instruction form, patient visit summary, and medication reconciliation form. Date & time record faxed: 04/15/21 @ 3599 [facility] [phone]; Hard copies were delivered to APOLINAR Lynn on [address] at time of transfer Record discussed with/ report given to: APOLINAR Lynn
--- NOTE | 2021-04-16 12:14 | NUR ---
Nursing note: Pt's daughter/DPOA notified of pt's change in status. All questions that were able to be answered by me were provided. Phone call was then transferred to [address] [place] [address] so further questions regarding current medical status could be answered.
--- NOTE | 2021-04-16 20:12 | PDOC ---
Exam Note: Jareth Note: Please also refer to the separate dictated note~for this date of service dictated separately.~Patient seen individually. Discussed the patient with Nursing staff reviewed the chart.~Reviewed interim history and current functioning. Reviewed vital signs,~Labs/ Radiology~and current medications noted below. Continue current treatment with the changes noted in the dictated addendum note Assessment: Vital Signs/I&O: Vital Signs Date Time Temp Pulse Resp B/P (MAP) Pulse Ox O2 Delivery O2 Flow Rate FiO2 04/16/21 08:25 80 147/79 04/16/21 05:57 98.1 20 96 04/13/21 16:07 Room Air I & O 04/15/21 04/15/21 04/16/21 15:00 23:00 07:00 Intake Total 860 ml 250 ml Balance 860 ml 250 ml Labs: Laboratory Tests Test 04/15/21 20:26 04/16/21 07:27 04/16/21 10:04 Glucose (Fingerstick) 160 mg/dL (70-99) H 149 mg/dL (70-99) H 158 mg/dL (70-99) H Current Medications: Meds: Laboratory Tests Test 04/15/21 20:26 04/16/21 07:27 04/16/21 10:04 Glucose (Fingerstick) 160 mg/dL 149 mg/dL 158 mg/dL Current Medications Medications (Trade) Dose Ordered Sig/Komal Route PRN Reason Start Time Stop Time Status Last Admin Dose Admin Acetaminophen (Tylenol) 650 mg PRN Q6HRS PRN PO MILD PAIN / TEMP > 100.3'F 03/28/21 15:00 03/29/21 16:01 DC Multi-Ingredient Ointment (Analgesic [place]) 1 peggy PRN QID PRN TP MUSCLE PAIN 03/28/21 15:00 04/16/21 10:26 DC Al Hydroxide/Mg Hydroxide (Mylanta Plus Xs) 15 ml PRN AFTMEALHC PRN PO DYSPEPSIA 03/28/21 15:00 04/16/21 10:26 DC Magnesium Hydroxide (Milk Of Magnesia) 2,400 mg PRN QHS PRN PO 2nd choice CONSTIPATION 03/28/21 15:00 04/16/21 10:26 DC 04/13/21 19:58 Acetaminophen (Tylenol) 650 mg TID PO 03/28/21 21:00 03/29/21 16:01 DC 03/29/21 08:59 Aspirin (Aspirin Chewable) 81 mg DAILY PO 03/29/21 09:00 04/16/21 10:26 DC 04/16/21 08:25 Carvedilol (Coreg) 6.25 mg BIDWMEALS PO 03/28/21 17:00 04/16/21 10:26 DC 04/16/21 08:25 Vitamin D (Vitamin D3) 2,000 unit DAILY PO 03/29/21 09:00 04/16/21 10:26 DC 04/16/21 08:25 Cyanocobalamin (Vitamin B-12) 1,000 mcg QMONTH IM 04/09/21 09:00 04/16/21 10:26 DC 04/09/21 09:43 Divalproex Sodium (Depakote Sprinkles) 250 mg BID PO 03/28/21 21:00 04/08/21 19:46 DC 04/08/21 08:28 Fluticasone Propionate (Flonase) 2 spray DAILY NS 03/29/21 09:00 03/29/21 16:01 DC 03/29/21 08:58 Hydralazine HCl (Apresoline) 10 mg PRN Q8HRS PRN PO HYPERTENSION 03/28/21 16:00 04/16/21 10:26 DC Losartan Potassium (Cozaar) 50 mg DAILY PO 03/29/21 09:00 04/06/21 16:31 DC 04/06/21 09:23 Megestrol Acetate (Megace Oral Susp) 400 mg BIDWBKFT/URIEL PO 03/29/21 08:00 04/16/21 10:26 DC 04/16/21 08:26 Mirtazapine (Remeron) 15 mg QHS PO 03/28/21 21:00 04/16/21 10:26 DC 04/15/21 20:03 Polyethylene Glycol (miraLAX) 17 gm PRN Q12HR PRN PO 1st choice CONSTIPATION 03/28/21 16:00 04/16/21 10:26 DC 04/16/21 08:26 Sennosides (Senna) 8.6 mg PRN Q12HR PRN PO 3rd choice CONSTIPATION 03/28/21 16:00 04/16/21 10:26 DC 04/16/21 08:26 Ticagrelor (Brilinta) 90 mg BID PO 03/28/21 21:00 04/16/21 10:26 DC 04/16/21 08:26 Atorvastatin Calcium (Lipitor) 40 mg QHS PO 03/28/21 21:00 04/16/21 10:26 DC 04/15/21 20:03 Insulin Human Lispro (HumaLOG) 10 units DAILYWSUP PRN SQ IF PT EATS >/= 25% OF NGOZI MEAL 03/28/21 16:15 03/29/21 11:54 DC Insulin Human Lispro (HumaLOG) 13 units BIDACBL SQ 03/29/21 07:30 03/29/21 11:56 DC Insulin Glargine (Lantus Syringe) 35 unit DAILYWBKFT SQ 03/29/21 08:00 04/16/21 10:26 DC 04/16/21 08:00 Multivitamins/ Calcium (Thera-M Plus) 1 tab DAILY PO 03/29/21 09:00 04/16/21 10:26 DC 04/16/21 08:25 Ondansetron HCl (Zofran Odt) 4 mg PRN Q12HR PRN PO NAUSEA/VOMITING 03/28/21 16:15 04/16/21 10:26 DC Insulin Human Lispro (HumaLOG) 10 units DAILYWSUP SQ 03/29/21 17:00 04/16/21 10:26 DC 04/13/21 17:37 Insulin Human Lispro (HumaLOG) 13 units BIDWBKFT/URIEL SQ 03/29/21 12:00 04/16/21 10:26 DC 04/16/21 08:28 Acetaminophen (Tylenol) 650 mg PRN TID PRN PO MILD PAIN / TEMP > 100.3'F 03/29/21 16:00 04/16/21 10:26 DC Fluticasone Propionate (Flonase) 2 spray PRN DAILY PRN NS ALLERGIES 03/29/21 16:00 04/16/21 10:26 DC Bupropion HCl (Wellbutrin Xl) 150 mg DAILY PO 03/30/21 09:00 03/30/21 20:20 DC Bupropion HCl (Wellbutrin Xl) 300 mg DAILY PO 04/02/21 09:00 03/30/21 20:20 DC Bupropion HCl (Wellbutrin) 75 mg 0900,1200 PO 03/31/21 09:00 04/02/21 14:00 DC 04/02/21 12:37 Bupropion HCl (Wellbutrin) 150 mg 0900 PO 04/02/21 09:00 04/01/21 17:59 DC Bupropion HCl (Wellbutrin) 75 mg NOON PO 04/03/21 12:00 04/05/21 21:00 DC 04/05/21 12:09 Bupropion HCl (Wellbutrin) 150 mg 0900 PO 04/03/21 09:00 04/07/21 09:01 DC 04/07/21 08:27 Bupropion HCl (Wellbutrin Xl) 150 mg 1200 PO 04/06/21 12:00 04/07/21 06:27 DC 04/06/21 12:08 Losartan Potassium (Cozaar) 100 mg DAILY PO 04/06/21 16:30 04/13/21 11:24 DC 04/13/21 09:08 Bupropion HCl (Wellbutrin) 300 mg DAILY PO 04/08/21 09:00 04/16/21 10:26 DC 04/16/21 08:25 Bupropion HCl (Wellbutrin) 150 mg DAILY@1200 PO 04/07/21 12:00 04/16/21 10:26 DC 04/15/21 12:00 Aripiprazole (Abilify) 2 mg DAILY PO 04/10/21 09:00 04/11/21 17:55 DC 04/11/21 08:09 Aripiprazole (Abilify) 5 mg HS PO 04/12/21 21:00 04/16/21 10:26 DC 04/15/21 20:03 Aripiprazole (Abilify) 3 mg 1X ONCE PO 04/11/21 21:00 04/11/21 21:01 DC 04/11/21 20:52 Magnesium Citrate (Citroma) 296 ml 1X ONCE PO 04/15/21 14:45 04/15/21 14:46 DC 04/15/21 17:44 I have reviewed the current psychotropics carefully including drug interactions. Risk benefit ratio favors no change other than as noted in my dictated progress note. Diagnosis: Problems: (1) Major depressive disorder, recurrent, severe with psychotic features (2) Mild cognitive impairment (3) Anxiety disorder, unspecified (4) Impulse control disorder, unspecified FREDDY SHEARER MD Apr 16, 2021 20:12
[2021-04-16] MEDS ORDERED: BUPR300T92 PO (21:08)
--- NOTE | 2021-04-17 22:05 | DS ---
DATE OF DISCHARGE: 04/16/2021 DISCHARGE SUMMARY/PSYCHIATRIC PROGRESS NOTE Admitted on 03/28, discharged on 04/[address] Vora. This is a late entry, date of service 04/16, covers elements not covered in my initial note of 04/16. REASON FOR ADMISSION: Please refer to the admission history for details. Briefly, the patient is a 76-year-old male referred to us from [facility] in [place] by his primary care physician/psychiatrist on account of worsening symptoms of depression. He had been tearful, not eating, depressed regarding his deteriorating physical condition post-stroke. He has been expressing wishes that he wanted to and was threatening staff with his cane. He had failed outpatient psychiatric interventions. Behaviors were deemed dangerous, unmanageable at the facility resulting in this referral. SIGNIFICANT FINDINGS AND CLINICAL COURSE: Following admission, the patient was seen daily individually by myself from a psychiatric standpoint, medical followup with Dr. Shea/Dr. Reich. The patient remained depressed, withdrawn, isolative, hopeless, helpless, worthless. Adjustments were made in his psychotropics and he seemed to respond to a combination of Wellbutrin-XL 300 mg in the morning, Wellbutrin 150 mg at noon. Megace was continued 400 mg twice a day, Remeron 15 mg at bedtime, Abilify 5 mg at bedtime. Gradually mood appeared to improve. He is more interactive. Denies suicidal ideation, less irritable. Discharge was planned on the 04/16, but on the morning of the 04/16, he had a vasovagal attack with drop in blood pressure, which was significant. Rapid response was called and he was transferred to the medical/surgical floor per Dr. Shea for further management. I had initially stopped the patient's Abilify and Wellbutrin while he was being worked up medically to make sure there was no cardiac condition for which the antidepressants might be contraindicated. Nevertheless, I was informed once he went to [address] [place] [address], he was found to have significant bowel obstruction due to marked constipation and large amount of stool was removed and he appeared clinically much better after that. I had requested APOLINAR Clarke to inform the medical/surgical nurses and to get approval from Dr. Shea but from a psychiatric standpoint, it would be appropriate to restart him on Wellbutrin-XL, but only at 300 mg in the morning, Abilify 2.5 mg a day. Prior to discharge on 04/16, ambulation impaired and he did have the episode of passing out. No suicidal or homicidal ideation. Mood and affect remains withdrawn. No clear psychotic symptoms. LABORATORY DATA: Reviewed. FINAL DIAGNOSES: Major depressive disorder, recurrent, in partial remission; anxiety disorder, unspecified; mild cognitive impairment. Rest as above. DISCHARGE MEDICATIONS: As noted above. MEDICAL AND PSYCHIATRIC FOLLOWUP: On [facility] medical/surgical floor per Dr. Shea. Time for discharge day management greater than [address]: Jaelyn TID: [id number]
== END 2021-04-16 10:25 | DRG 885 ==
LOC: GEROPSY 14:27
PROVIDERS: ADMIT Psychiatry & Neurology Psychiatry; ATTEND Psychiatry & Neurology Psychiatry
DX: F33.3 Major depressive disorder, recurrent, severe with psychotic symptoms (principal); N18.9 Chronic kidney disease, unspecified; R45.851 Suicidal ideations; Z66 Do not resuscitate; E11.22 Type 2 diabetes mellitus with diabetic chronic kidney disease; D64.9 Anemia, unspecified; E87.6 Hypokalemia; F41.9 Anxiety disorder, unspecified; F63.9 Impulse disorder, unspecified; G31.84 Mild cognitive impairment of uncertain or unknown etiology; I12.9 Hypertensive chronic kidney disease with stage 1 through stage 4 chronic kidney disease, or unspecified chronic kidney disease; N31.9 Neuromuscular dysfunction of bladder, unspecified; M19.90 Unspecified osteoarthritis, unspecified site; Z20.822 Contact with and (suspected) exposure to COVID-19; Z95.1 Presence of aortocoronary bypass graft; Z91.81 History of falling; Z87.891 Personal history of nicotine dependence; Z86.73 Personal history of transient ischemic attack (TIA), and cerebral infarction without residual deficits; Z79.899 Other long term (current) drug therapy
CPT/HCPCS: 36415; 80053; 80061; 80164; 81001; 82306; 82607; 82947; 83036; 83540; 83550; 83735; 84436; 84443; 84480; 85025; 85379; 86592; 93005; J1815; J3420; U0003; 92610; 97110; 97116; 97530

== ENCOUNTER 2021-04-16 10:30 | Inpatient (IN) | payer MEDICARE ==
[~2021-04-16] VITALS: Ht 172.7 cm; Wt 71.3 kg
[2021-04-16] MEDS: IV NORMAL SALINE 1,000ML 1,000 ML IV SCH ×2 (00:47→12:45)
[~2021-04-16 10:30] MED LIST: ACET325T21 PO; ARIP5TAB13 PO; ASPI-630 PO; ATOR40TA59 PO; BUPR100T11 PO; BUPR150T11 PO; BUPR150T8 PO; BUPR75TA6 PO; CARV6.25 PO; CHOL10004 PO; CYAN10002 IM; DIVA125C2 PO; FLUT16SP21 NS; HYDR-2867 PO; INSU100I13 SQ; INSU100I17 SQ; LOSA50TA86 PO; MAG-124 PO; MAGN24003 PO; MEGE400O4 PO; METH57CR17 TP; MIRT-7 PO; MULT-154 PO; ONDA4TAB7 PO; POLY17PO5 PO; SENN8.6T11 PO; TICA90TA PO
[2021-04-16 11:43] VITALS: BP 148/66
[2021-04-16] MEDS ORDERED: IV NORMAL SALINE 1,000ML 1,000 ML IV ONE (12:45)
[2021-04-16 13:18] LABS: BASO # 0.1 x10^3/uL (0.0-0.2); BASO % 1 % (0-3); EOS # 0.4 x10^3/uL (0.0-0.7); EOS % 3 % (0-3); HEMATOCRIT 29.4 % (39.0-53.0); HEMOGLOBIN 9.9 g/dL (13.0-17.5); LYMPH # 1.6 x10^3/uL (1.0-4.8); LYMPH % 14 % (24-48); MEAN CORPUSCULAR HEMOGLOBIN 31 pg (25-35); MEAN CORPUSCULAR HGB CONC 34 g/dL (31-37); MEAN CORPUSCULAR VOLUME 92 fL (79-100); MONO # 1.1 x10^3/uL (0.0-1.1); MONO % 10 % (0-9); NEUT # 7.9 x10^3uL (1.8-7.7); NEUT % 72 % (31-73); PLATELET COUNT 255 x10^3/uL (140-400); RED BLOOD COUNT 3.21 x10^6/uL (4.30-5.70); RED CELL DISTRIBUTION WIDTH 15.7 % (11.5-14.5)
[2021-04-16 13:26] LABS: CALCIUM 9.3 mg/dL (8.5-10.1); CREATININE 2.8 mg/dL (0.7-1.3); GFR 22.1; POTASSIUM 4.8 mmol/L (3.5-5.1)
[2021-04-16 13:32] LABS: ALBUMIN 3.8 g/dL (3.4-5.0); ALBUMIN/GLOBULIN RATIO 1.2 (1.0-1.7); TOTAL BILIRUBIN 0.3 mg/dL (0.2-1.0); TOTAL PROTEIN 6.9 g/dL (6.4-8.2)
--- NOTE | 2021-04-16 13:57 | RAD ---
EXAM: Chest, single view. HISTORY: Chest pain. COMPARISON: None. FINDINGS: A frontal view of the chest is obtained. There is left infrahilar atelectasis or scarring. There is no consolidation, pleural effusion or pneumothorax. The heart is normal in size. IMPRESSION: Suspected left infrahilar atelectasis or scarring. Electronically signed by: Lara Chopra MD (04/16/2021 1:54 PM) [id number]
--- NOTE | 2021-04-16 14:00 | NUR ---
Patient was admitted from the [facility] post rapid response. Patient was sitting in wheelchair waiting for ride home due to being discharged from [facility]. Patient become unresponsive and hypotensive therefore a rapid response was called. Patient was assessed and transferred to [facility] for medical management. Patient was still unresponsive upon arrival to unit with pressures in the 50's. After several minutes patient did become responsive, blood pressure returned to normal limits. Patients heart rate and oxygen saturations were also WNL. Patient was not really aware of what transpired just stated he started to feel bad before incident occurred but did not realize what happened. Shabbir Chawla was called and notified of patients arrival to unit and condition, orders were received and implemented. ZAIRE.
[2021-04-16] MEDS ORDERED: LIDOCAINE 2% JELLY 6ML IN APPLICATOR. MM ONE (14:30)
--- NOTE | 2021-04-16 14:49 | HP ---
DATE OF SERVICE: 04/16/2021 ADMIT DATE: 04/16/2021 HISTORY OF PRESENT ILLNESS: The patient is a 76-year-old male patient who was sitting and they were all waiting for his transport to arrive as he was discharged and he was noted to have lost color in his face and began to slide out of his chair and became unresponsive. The patient was awakened by staff with a sternal rub and he was unable to keep his eyes open. Vital signs were obtained and showed that he was hypotensive with a blood pressure of only 50/21. Rapid response was called and manual blood pressure was attempted to be obtained, manual was unable to be obtained due to staff repositioning the patient, and the patient then becoming more awake and fighting the blood pressure cuff. His oxygen saturation was 97% on room air, his heart rate was 80 and therefore, the patient was transferred to a bed and taken to [address] [place] [address], room 111, for further evaluation of his hypotensive episode. By the time he arrived to [address] [place] [address], his blood pressure was within normal range, he was more awake and alert and able to answer questions appropriately. On questioning him, he denied any chest pain or shortness of breath. His heart rate on arrival was 72, blood pressure was 148/66, temperature was 97.5, respiratory rate was 18 and oxygen saturation was 97%. We did send extensive lab work as well as chest x-ray and was started on IV fluid, as his lab work revealed that his BUN and creatinine had risen up to 48 and 2.8. PAST MEDICAL HISTORY: Significant for right middle cerebral artery territory infarct with left-sided hemiplegia. He also has oropharyngeal dysphagia, dysarthria, neurogenic bowel, and left-sided neglect syndrome. He has type 2 diabetes mellitus, chronic kidney disease, neurogenic bladder, anemia, hypertension, coronary artery bypass graft surgery, generalized muscle weakness, attention and concentration deficits with adjustment disorder, mixed anxiety and depressed mood, generalized osteoarthritis. The patient requires assistance for all activities of daily living. PAST SURGICAL HISTORY: Significant for coronary artery bypass graft surgery. ALLERGIES: He has no known drug allergies. FAMILY HISTORY: Noncontributory. SOCIAL HISTORY: He is , has 2 children. He quit smoking about 30 years ago. Drinks alcohol occasionally. He does not use any drugs. 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 MEDICATIONS: He is currently on the following medications: He is on mag citrate 296 mL once as needed for constipation, aripiprazole 5 mg at bedtime, cyanocobalamin 1000 mcg once a month, Wellbutrin 300 mg daily, Wellbutrin 150 mg daily. He is on Humalog insulin 10 units with supper, Flonase 2 sprays to each nostril twice a day, acetaminophen 650 mg 3 times a day. He is on Humalog 13 units at breakfast and lunch, multivitamin 1 tablet once a day, vitamin D 2000 units once a day, aspirin 81 mg daily. He is on Lantus insulin 35 units with breakfast, Megace 400 mg b.i.d. with breakfast and lunch, atorvastatin 40 mg at bedtime, Brilinta 90 mg twice a day, mirtazapine 15 mg at bedtime, carvedilol 6.25 mg twice a day, ondansetron 4 mg every 12 hours as needed, senna 1 tablet twice a day, polyethylene glycol 17 grams twice a day, hydralazine 10 mg p.o. every 8 hours, magnesium oxide for milk of magnesia 30 mL p.o. daily p.r.n. for constipation, Mylanta 15 mL after meals and as needed. Apparently, the patient was unresponsive when he was transferred from [facility] with the systolic blood pressure of only 50, that has improved back to normal by the time he arrived to [address] [place] [address]. PHYSICAL EXAMINATION: GENERAL: On examining him, he looked well and was clearly in no apparent respiratory distress. He was pale, but no jaundice, cyanosis or thyromegaly. No jugular venous distention. No lower limb edema. VITAL SIGNS: His heart rate was 72, blood pressure 148/66, temperature was 97.5, respiratory rate was 18 and oxygen saturation was 97%. HEAD, EYES, EARS, NOSE, AND THROAT: Showed normocephalic, atraumatic. NECK: Supple. HEART: Normal first and second heart sounds. No gallop, rub, or murmur. CHEST: Clear to auscultation. No crepitation or rhonchi. ABDOMEN: Soft, nontender. There is definitely no guarding or rigidity. No organomegaly. All hernial orifice intact. Bowel sounds normal. NEUROLOGIC: He was awake, alert, responding appropriately. He has left-sided hemiplegia. LABORATORY DATA: His lab work on arrival showed a white cell count of 11,000, hemoglobin 9.9, hematocrit 29, MCV 92 and platelet count 255,000 with normal manual differential. His D-dimer was high at 44.10 mg per liter and his chemistry showed a serum sodium 138, potassium 4.8, chloride 102, bicarbonate 24, anion gap of 12, BUN 48, creatinine 2.8. Estimated GFR was 22 mL per minute. His glucose was 105. Lactic acid was 2. Calcium was 9.3. Total bilirubin, AST, ALT, alkaline phosphatase slightly elevated. Troponin I high sensitivity was 14 and total protein was 6.9, albumin 3.8. ASSESSMENT: The patient has what seemed to be a syncopal episode, most likely vasovagal, as he apparently is extremely constipated. PLAN: To continue with IV fluid and I will also arrange for a rectal exam and perhaps digital disimpaction. SHERWIN/ADELFO/ZULEYMA DR: SHERWIN/bryon TID: [id number]
[2021-04-16 15:00] VITALS: BP 148/64
[2021-04-16 20:12] VITALS: BP 164/81
[2021-04-16] MEDS ORDERED: ACETAMINOPHEN 325 MG TABLET PO PRN (21:00)
[2021-04-16] MEDS ORDERED: POLYETHYLENE GLYCOL 3350 17 GM PACKET. PO PRN (21:00)
[2021-04-16] MEDS ORDERED: MAG HYDROX/AL HYDROX/SIMETH 30 ML ORAL.SUSP PO PRN (21:00)
[2021-04-16] MEDS ORDERED: FLUTICASONE 50MCG/NASAL SPRAY 16GM BOTTLE. NS PRN (21:00)
[2021-04-16] MEDS ORDERED: METHYL SALICYLATE/MENTHOL TOPICAL OINTMENT 57GM TUBE. TP PRN (21:00)
[2021-04-16] MEDS ORDERED: SENNOSIDES 8.6 MG TABLET PO PRN (21:00)
[2021-04-16] MEDS ORDERED: hydrALAZINE 10 MG TABLET PO PRN (21:00)
[2021-04-16] MEDS ORDERED: BUPR300T92 PO (21:08)
[2021-04-16] MEDS ORDERED: ONDANSETRON ODT 4 MG TAB.RAPDIS PO PRN (22:15)
[2021-04-16] MEDS ORDERED: MAGNESIUM HYDROXIDE 2,400 MG/30 ML ORAL.SUSP. PO PRN (22:15)
[2021-04-16] MEDS: TICAGRELOR 90 MG TABLET. PO SCH (22:37)
[2021-04-16] MEDS: MIRTAZAPINE 15 MG TABLET PO SCH (22:37)
[2021-04-16] MEDS: ATORVASTATIN CALCIUM 20 MG TABLET PO SCH (22:37)
[2021-04-16] MEDS: ARIPiprazole 5 MG TABLET PO SCH (22:37)
[2021-04-16] MEDS ORDERED: DEXTROSE 50% 25 GM / 50ML DISP.SYRIN. IV PRN (22:45)
[2021-04-16 23:49] VITALS: BP 151/68
[2021-04-17 05:05] VITALS: BP 165/72
[2021-04-17 06:20] LABS: HEMATOCRIT 28.9 % (39.0-53.0); HEMOGLOBIN 9.7 g/dL (13.0-17.5); RED BLOOD COUNT 3.17 x10^6/uL (4.30-5.70); RED CELL DISTRIBUTION WIDTH 15.1 % (11.5-14.5); WHITE BLOOD COUNT 8.1 x10^3/uL (4.0-11.0)
[2021-04-17 06:33] LABS: ALBUMIN 3.3 g/dL (3.4-5.0); ALBUMIN/GLOBULIN RATIO 1.1 (1.0-1.7); CALCIUM 8.7 mg/dL (8.5-10.1); CREATININE 2.3 mg/dL (0.7-1.3); GFR 27.8; TOTAL BILIRUBIN 0.4 mg/dL (0.2-1.0); TOTAL PROTEIN 6.3 g/dL (6.4-8.2)
[2021-04-17] MEDS: MEGESTROL 400 MG/10 ML ORAL.SUSP. PO SCH ×2 (08:07→12:52)
[2021-04-17] MEDS: CHOLECALCIFEROL (VITAMIN D3) 1,000 UNIT TABLET PO SCH (08:07)
[2021-04-17] MEDS: MULTIVITAMIN with MINERAL TABLET. PO SCH (08:07)
[2021-04-17] MEDS: CARVEDILOL 6.25 MG TABLET PO SCH ×2 (08:07→18:02)
[2021-04-17] MEDS: ASPIRIN CHEWABLE 81 MG TABLET. PO SCH (08:07)
[2021-04-17] MEDS: TICAGRELOR 90 MG TABLET. PO SCH ×2 (08:07→19:57)
[2021-04-17] MEDS: buPROPion XL 300 MG TAB.ER.24H. PO SCH (10:16)
[2021-04-17] MEDS: IV NORMAL SALINE 1,000ML 1,000 ML IV SCH ×2 (10:16→19:56)
[2021-04-17] MEDS: INSULIN LISPRO 300 UNITS/3 ML VIAL. SQ SCH ×2 (10:21→12:52)
[2021-04-17] MEDS: INSULIN GLARGINE SYRINGE. SQ SCH (10:22)
[2021-04-17 11:07] VITALS: BP 150/75
[2021-04-17] MEDS ORDERED: POLYETHYLENE GLYCOL 3350 17 GM PACKET. PO PRN (11:15)
[2021-04-17] MEDS ORDERED: SENNOSIDES 8.6 MG TABLET PO PRN (11:15)
[2021-04-17 15:32] VITALS: BP 161/86
[2021-04-17] MEDS ORDERED: INSULIN LISPRO 300 UNITS/3 ML VIAL. SQ SCH (17:00)
[2021-04-17 18:27] VITALS: BP 159/71
[2021-04-17] MEDS: ARIPiprazole 5 MG TABLET PO SCH (19:56)
[2021-04-17] MEDS: ATORVASTATIN CALCIUM 20 MG TABLET PO SCH (19:56)
[2021-04-17] MEDS: MIRTAZAPINE 15 MG TABLET PO SCH (19:56)
--- NOTE | 2021-04-17 22:24 | PN ---
DATE: 04/17/2021 SUBJECTIVE: The patient is resting flat in bed, in no apparent distress, awake, alert. On questioning him, he denied any complaint. The nursing staff did not voice any concerns, stated that he has an uneventful night. PHYSICAL EXAMINATION: GENERAL: When I examined him, he looked somewhat pale, but not jaundiced or cyanosed, no lymphadenopathy, no thyromegaly, no jugular venous distention. No limb edema. VITAL SIGNS: His heart rate was 81, blood pressure was 165/72, temperature was 98.2, respiratory rate was 18, and oxygen saturation was 99% on room air. HEAD, EYES, EARS, NOSE, AND THROAT: Normocephalic, atraumatic. NECK: Supple. HEART: Showed normal first and second heart sounds. No gallop, rub, or murmur. CHEST: Clear to auscultation. No crepitation or rhonchi. ABDOMEN: Distended, soft, nontender. NEUROLOGIC: He was awake, alert, and responding appropriately. Cranial nerves intact. He has left-sided hemiplegia. He is mostly bedbound, wheelchair bound. His intake and output are incompletely recorded. LABORATORY DATA: His lab work this morning showed a white cell count of 8000, hemoglobin 10, hematocrit 29, MCV 91, and platelet count 220,000. His chemistry showed a serum sodium 137, potassium 5, chloride 106, bicarbonate 20, anion gap of 11, BUN 39, creatinine was 2.3. Estimated GFR was 27 mL per minute. His glucose 135, calcium was 8.7. Total bilirubin, AST, ALT, alkaline phosphatase were normal. Total protein 6.3, albumin 3.3. ASSESSMENT: 1. Vasovagal syncope, likely due to fecal impaction. 2. Acute on chronic kidney injury. His creatinine has risen from 2-2.8, for which he was started on IV fluid. 3. Other medical problems include right middle cerebral artery territory infarct with left-sided hemiplegia. 4. Oropharyngeal dysphagia, dysarthria. 5. Neurogenic bowel. 6. Left-sided neglect syndrome. 7. Type 2 diabetes mellitus. 8. Chronic kidney disease. 9. Neurogenic bladder. 10. Anemia of chronic kidney disease. 11. Hypertension. 12. Coronary artery bypass graft surgery. PLAN: To continue with IV fluid, continue with monitor his blood sugar and adjust insulin as needed. Continue with a lubricant and a stimulant. He is on magnesium hydroxide for milk of magnesia at 30 mL p.o. daily, senna, he takes 1 tablet twice a day, ____ 17 grams once a day. We will also consult physical and occupational therapy and if he is accepted today, we will be able to discharge him there. Otherwise, he would be discharged tomorrow. FIDELINA/EBER DR: Magaly TID: [id number]
[2021-04-18 00:13] VITALS: BP 168/88
[2021-04-18] MEDS: IV NORMAL SALINE 1,000ML 1,000 ML IV SCH (04:35)
[2021-04-18 05:15] VITALS: BP 169/90
[2021-04-18 06:24] LABS: CALCIUM 8.7 mg/dL (8.5-10.1); CREATININE 2.2 mg/dL (0.7-1.3); GFR 29.2; POTASSIUM 4.6 mmol/L (3.5-5.1)
[2021-04-18] MEDS: INSULIN LISPRO 300 UNITS/3 ML VIAL. SQ SCH (07:30)
[2021-04-18] MEDS: MEGESTROL 400 MG/10 ML ORAL.SUSP. PO SCH (08:22)
[2021-04-18] MEDS: CARVEDILOL 6.25 MG TABLET PO SCH (08:23)
[2021-04-18] MEDS: TICAGRELOR 90 MG TABLET. PO SCH (08:23)
[2021-04-18] MEDS: ASPIRIN CHEWABLE 81 MG TABLET. PO SCH (08:23)
[2021-04-18] MEDS: buPROPion XL 300 MG TAB.ER.24H. PO SCH (08:25)
[2021-04-18] MEDS: MULTIVITAMIN with MINERAL TABLET. PO SCH (08:25)
[2021-04-18] MEDS: CHOLECALCIFEROL (VITAMIN D3) 1,000 UNIT TABLET PO SCH (08:25)
[2021-04-18] MEDS: INSULIN GLARGINE SYRINGE. SQ SCH (09:25)
--- NOTE | 2021-04-18 09:30 | NUR ---
Nursing note PT in bed, ate 50% of breakfast, alert and oriented, gave insulin after verification from pharmacy for it to be given with breakfast. .
[2021-04-18 11:08] VITALS: BP 153/83
--- NOTE | 2021-04-18 11:09 | NUR ---
Nursing note PT discharged from the [facility]. PT stable when picked up, vitals, temp 97.7, Pulse: 76, Respiration 18 and blood pressure 153/83. discharge instructions given to PT. and discharge papers given to PT. PT was assisted out of the hospital by the nurse and on a wheel chair. Picked up by [facility] facility.
--- NOTE | 2021-04-18 20:13 | DS ---
DATE OF DISCHARGE: 04/18/2021 HOSPITAL COURSE: The patient is a 76-year-old male patient who was transferred from [facility] on account of syncopal episode, most likely vasovagal due to his severe obstipation, constipation and fecal impaction. His systolic pressure was only 71 when he was upstairs and by the time he arrived here, his blood pressure has improved. He did have also acute kidney injury. His BUN and creatinine were also elevated at 48 and 2.8, so the patient was started on IV fluid. I did actually a digital disimpaction, a large amount of hard stool was removed. The patient did very well thereafter. He has had no more syncopal episode and his kidney function has returned back to almost baseline with a creatinine of 2.2, a BUN of 32. As the patient remained hemodynamically stable, afebrile, his kidney function has improved, he has no vasovagal attack or syncopal episode, the patient was discharged back to [facility] PHYSICAL EXAMINATION: GENERAL: On the discharge day, he looked well and was clearly in no apparent respiratory distress. No pallor, jaundice, cyanosis or thyromegaly. No jugular venous distention. No limb edema. VITAL SIGNS: His heart rate was 76, blood pressure 153/83, temperature was 97.7, respiratory rate was 18 and oxygen saturation was 96%. HEAD, EYES, EARS, NOSE AND THROAT: Showed that he is normocephalic, atraumatic. NECK: Supple. HEART: Showed normal first and second heart sounds. No gallop, rub or murmur. CHEST: Clear to auscultation, no crepitation or rhonchi. ABDOMEN: Distended, soft, nontender. NEUROLOGIC: He was awake, alert, responding appropriately. He has left-sided hemiplegia. His intake over the last 24 hours was 1360, output was 600. LABORATORY DATA: As of this morning, his white cell count was 8000, hemoglobin 10, hematocrit 30, MCV 91, and platelet count 220,000. His chemistry showed a serum sodium 138, potassium 4.6, chloride 106, bicarbonate 20, anion gap of 12, BUN 32, creatinine 2.2. Estimated GFR was 29 mL per minute. Glucose 84, calcium was 8.7. DISCHARGE MEDICATIONS: He was discharged home to continue on cyanocobalamin 1000 mcg intramuscular once a month, Humalog insulin 10 units with supper, senna 1 tablet twice a day, polyethylene glycol 17 grams twice a day, multivitamin 1 tablet once a day, vitamin D 2000 units once a day, Wellbutrin-XL 300 mg daily, aspirin 81 mg once a day, Lantus insulin 35 units with breakfast. Megace oral solution 400 mg twice a day, carvedilol 6.25 mg twice a day, Humalog insulin 13 units before breakfast and lunch, ondansetron 4 mg every 4 hours, magnesium hydroxide, milk of magnesia 30 mL p.o. daily p.r.n. for constipation, atorvastatin 40 mg at bedtime, and Brilinta 90 mg twice a day, aripiprazole 2.5 mg at bedtime, mirtazapine 15 mg at bedtime. FINAL DISCHARGE DIAGNOSES: 1. Vasovagal syncope, likely due to fecal impaction. 2. Acute on chronic kidney injury. Creatinine is down to 2 from 2.8. 3. Other medical problems include: A. Right middle cerebral artery territory infarct with left-sided hemiplegia. B. Oropharyngeal dysphagia. C. Neurogenic bowel. D. Left-sided neglect syndrome. E. Type 2 diabetes mellitus. F. Chronic kidney disease. G. Neurogenic bladder. H. Anemia of chronic kidney disease. I. Hypertension. J. Coronary artery bypass graft surgery. PETE DR: Magaly TID: [id number]
[2021-05-09] MEDS ORDERED: CYANOCOBALAMIN (VITAMIN B-12) 1,000 MCG/ML VIAL. IM SCH (09:00)
== END 2021-04-18 11:14 | DRG 388 ==
LOC: 1 SOUTH 10:30
PROVIDERS: ADMIT Internal Medicine; ATTEND Internal Medicine
DX: K56.41 Fecal impaction (principal); N17.0 Acute kidney failure with tubular necrosis; I69.354 Hemiplegia and hemiparesis following cerebral infarction affecting left non-dominant side; K59.2 Neurogenic bowel, not elsewhere classified; R41.4 Neurologic neglect syndrome; E11.22 Type 2 diabetes mellitus with diabetic chronic kidney disease; I12.9 Hypertensive chronic kidney disease with stage 1 through stage 4 chronic kidney disease, or unspecified chronic kidney disease; M15.9 Polyosteoarthritis, unspecified; R13.12 Dysphagia, oropharyngeal phase; N31.9 Neuromuscular dysfunction of bladder, unspecified; D63.1 Anemia in chronic kidney disease; N18.9 Chronic kidney disease, unspecified; Z95.1 Presence of aortocoronary bypass graft; Z87.891 Personal history of nicotine dependence
CPT/HCPCS: 36415; 71045; 80048; 80053; 82947; 83605; 84443; 84484; 85025; 85027; 85379; J1815; 97530; 97535; J7030